=== PATIENT | female | born 1935 | race Caucasian/White ===

== ENCOUNTER 2017-06-21 15:08 | Emergency (ER) | END 2017-06-21 19:40 | disposition home or self-care (01) ==

== ENCOUNTER 2017-06-22 04:51 | Inpatient (IN) | END 2017-07-02 16:55 | disposition home health service (06) | DRG 270 ==

== ENCOUNTER 2017-08-18 12:21 | Inpatient (IN) | END 2017-08-20 20:30 | disposition home or self-care (01) | DRG 291 ==

== ENCOUNTER 2018-10-20 10:58 | Inpatient (IN) | payer MEDICARE, OTHER ==
[~2018-10-20] VITALS: Ht 157.5 cm; Wt 75.9 kg
[~2018-10-20 10:58] MED LIST: APIX2.5T PO; ATOR40TA68 PO; CARV6.2579 PO; CLOP75TA19 PO; FURO40TA4 PO; SACU1TAB7 PO
[2018-10-20] MEDS ORDERED: SOD CHLORIDE 0.9% 500 ML IV STA (11:10)
[2018-10-20] MEDS ORDERED: ONDANSETRON 4 MG INJ IV STA (11:10)
[2018-10-20] MEDS ORDERED: morphine 4 MG/ML VIAL IV STA (11:10)
[2018-10-20] MEDS ORDERED: ZOLP5TAB7 PO (12:13)
[2018-10-20] MEDS ORDERED: LORAZEPAM 2 MG INJ IV ONE ×2 (12:30→22:30)
[2018-10-20] MEDS ORDERED: IOHEXOL 100 ML ONE (12:56)
[2018-10-20] MEDS ORDERED: SOD CHLORIDE 0.9% 100 ML ONE (12:56)
--- NOTE | 2018-10-20 14:14 | ERD ---
ER Documentation Chief Complaint Chief Complaint shortness of breath and upper back pain started 45 minutes ago HPI During the patient's encounter translation services were utilized Language: Aremenian Source: Video 83-year-old female who is not a very good historian who presents to the emergency room with multiple complaints. The patient is possibly describing some shortness of breath and chest pain of unclear etiology and duration for approximately maybe 1 to 2 days. The patient also describes a right-sided lumbar thoracolumbar back pain that is moderate and throbbing and worse with rotational movement. She denies any significant pleuritic pain. No calf swelling. 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 ROS All systems reviewed and are negative except as per history of present illness. Medications Home Meds Reported Medications Zolpidem Tartrate* (Zolpidem Tartrate*) 5 Mg Tablet, 5 MG PO QHS PRN for NEEDED, #30 TAB 10/20/18 Clopidogrel Bisulfate* (Clopidogrel Bisulfate*) 75 Mg Tablet, 75 MG PO DAILY, #30 TAB 06/25/18 Furosemide* (Furosemide*) 40 Mg Tablet, 40 MG PO DAILY, TAB 06/25/18 Sacubitril/Valsartan (Entresto 49 mg-51 mg Tablet) 1 Each Tablet, 1 EACH PO BID, TAB 06/25/18 Atorvastatin* (Atorvastatin*) 40 Mg Tablet, 40 MG PO QHS, #30 TAB 06/25/18 Carvedilol* (Carvedilol*) 6.25 Mg Tablet, 6.25 MG PO BID, #60 TAB 06/25/18 Apixaban* (Eliquis*) 2.5 Mg Tablet, 2.5 MG PO BID, TAB 06/25/18 Allergies Allergies: Coded Allergies: No Known Allergy (Unverified , 10/20/18) PMhx/Soc History of Surgery: Yes (stent, RECENT STENT PLACED [id number] AGO) Anesthesia Reaction: No Hx Neurological Disorder: No (stroke 2017) Hx Respiratory Disorders: No Hx Cardiac Disorders: Yes (htn, cad, mi ,heart attack, POSSIBLE CHF) Hx Psychiatric Problems: No Hx Miscellaneous Medical Probl: No Hx Alcohol Use: No Hx Substance Use: No Hx Tobacco Use: No Smoking Status: Never smoker FmHx Family History: No diabetes Physical Exam Vitals Vital Signs Date Temp Pulse Resp B/P (MAP) Pulse Ox O2 O2 Flow FiO2 Time Delivery Rate 10/20/18 3.0 13:30 10/20/18 66 19 112/56 98 Nasal 13:00 (74) Cannula 10/20/18 Nasal 2 11:15 Cannula 10/20/18 97.7 74 21 144/71 98 11:10 (95) Physical Exam General: Uncomfortable Head: Normocephalic, atraumatic. Eyes: Pupils equally reactive, EOM intact ENT: Moist mucous membranes Neck: Supple, no lymphadenopathy Respiratory: Lungs clear bilaterally, no distress Cardiovascular: RRR, no murmurs, rubs, or gallops Abdominal: Soft, non-tender, non-distended, no peritoneal signs Back: Reproducible soft tissue tenderness along the paraspinal thoracolumbar back muscles without midline tenderness deformities or step-offs. : Deferred MSK: No edema, no unilateral swelling, 5/5 strength Neurologic: Alert and oriented, moving all extremities, normal speech, no focal weakness, no cerebellar signs Skin: No rash Psych: Normal mood Result Diagram: 10/20/18 1135 10/20/18 1135 Results 24 hrs Laboratory Tests Test 10/20/18 11:35 White Blood Count 7.2 10^3/ul Red Blood Count 3.83 10^6/ul Hemoglobin 10.9 g/dl Hematocrit 33.9 % Mean Corpuscular Volume 88.5 fl Mean Corpuscular Hemoglobin 28.5 pg Mean Corpuscular Hemoglobin Concent 32.2 g/dl Red Cell Distribution Width 14.7 % Platelet Count 308 10^3/UL Mean Platelet Volume 9.6 fl Immature Granulocytes % 0.100 % Neutrophils % 65.8 % Lymphocytes % 26.6 % Monocytes % 5.4 % Eosinophils % 1.5 % Basophils % 0.6 % Nucleated Red Blood Cells % 0.0 /100WBC Immature Granulocytes # 0.010 10^3/ul Neutrophils # 4.8 10^3/ul Lymphocytes # 1.9 10^3/ul Monocytes # 0.4 10^3/ul Eosinophils # 0.1 10^3/ul Basophils # 0.0 10^3/ul Nucleated Red Blood Cells # 0.0 10^3/ul Prothrombin Time 15.2 Sec Prothrombin Time Ratio 1.2 INR International Normalized Ratio 1.19 Activated Partial Thromboplast Time 28.3 Sec Sodium Level 143 mmol/L Potassium Level 3.9 mmol/L Chloride Level 111 mmol/L Carbon Dioxide Level 23 mmol/L Anion Gap 9 Blood Urea Nitrogen 17 mg/dl Creatinine 0.92 mg/dl Est Glomerular Filtrat Rate mL/min mL/min Glucose Level 120 mg/dl Calcium Level 9.4 mg/dl Troponin I < 0.012 ng/ml B-Type Natriuretic Peptide 2770 PG/ML Current Medications Medications Dose Sig/Christofer Start Time Status Last (Trade) Ordered Route PRN Stop Time Admin Dose Reason Admin Sodium 500 ml @ Q1H STAT 10/20/18 DC 10/20/18 Chloride 500 mls/hr IV 11:10 10/20/18 11:49 12:09 Morphine 4 mg ONCE STAT 10/20/18 DC 10/20/18 Sulfate IV 11:10 10/20/18 11:48 (morphine) 11:12 Ondansetron 4 mg ONCE STAT 10/20/18 DC 10/20/18 HCl (Zofran IV 11:10 10/20/18 11:48 Inj) 11:12 Lorazepam 0.5 mg ONCE ONCE 10/20/18 DC 10/20/18 (Ativan) IV 12:30 10/20/18 12:15 12:31 IV Flush 10 ml STK-MED 10/20/18 DC 10/20/18 (NS 10 ml) ONCE .ROUTE 12:55 10/20/18 13:40 12:56 Sodium 100 ml @ ud STK-MED 10/20/18 DC 10/20/18 Chloride ONCE .ROUTE 12:56 10/20/18 13:42 12:57 Iohexol 100 ml @ ud STK-MED 10/20/18 DC 10/20/18 ONCE .ROUTE 12:56 10/20/18 13:41 12:57 Procedures/MDM EKG, MONITORS, & DIAGNOSTIC IMAGING: EKG: I reviewed and interpreted a 12-lead EKG. Rhythm: Normal sinus rhythm ST Changes: No contiguous ST segment elevations T waves: No contiguous T wave inversions Impression: [No evidence of acute cardiac ischemia] Repeat EKG: EKG: I reviewed and interpreted a 12-lead EKG. Rhythm: Normal sinus rhythm ST Changes: No contiguous ST segment elevations T waves: No contiguous T wave inversions Impression: [No evidence of acute cardiac ischemia] Chest x-ray: I reviewed and interpreted a 1 view of the chest Mediastinum: No enlargement Cardiac silhouette: No cardiomegaly Airspace: Clear lung starr bilaterally without evidence of pneumothorax Bones: No evidence of fracture CTPE IMPRESSION: No evidence of central or segmental pulmonary emboli. Subsegmental branches not well visualized due to patient respiratory motion artifact. Discoid atelectasis in the lung bases. No acute appearing air space infiltrates. RPTAT: AADD PROCEDURES: [None] LAB INTERPRETATION: * The patient has a negative troponin, slightly elevated BNP MEDICAL DECISION MAKING: The patient's history, physical exam and clinical presentation is concerning for possible cardiogenic etiology and acute coronary syndrome. However the patient is also describing some shortness of breath, consider possible pulmonary embolism. The patient's back component seems to be muscular skeletal related given reproducible symptoms. No evidence of rash or shingles. No signs or symptoms concerning for dissection or aortic process. Based on the patient's clinical exam and history and risk factors, I have a much lower clinical concern for acute aortic dissection, pneumothorax, pneumonia, cardiac tamponade Shared Decision Making: We had a conversation regarding risk stratification, MACE rate, and the risks, benefits, alternatives of disposition planning options. ER COURSE: * Patient given pain control medication with improvement. She is resting comfortably and sleeping. Her troponin is negative. BNP is indeterminate. * Aspirin given. No indication of the patient requires diuresis. * Given the patient's cardiac history and report of chest pain the patient will benefit from hospitalization to rule out ACS. CONSULTATION: [None] DISPOSITION PLAN: Telemetry admission for management of chest pain to rule out acute coronary syndrome, serial enzymes, risk stratification and consideration of provocative testing CONSULTATION: Accepting care team and consultations: I discussed the current laboratory data, diagnostic imaging and emergency care provided. Admitting team: Dr. Murphy Admitting team indication: Insurance directed Departure Diagnosis: Primary Impression: Shortness of breath Additional Impressions: Back pain Back pain location: low back pain Chronicity: acute Back pain laterality: right Sciatica presence: without sciatica Qualified Codes: M54.5 - Low back pain Chest pain Chest pain type: unspecified Qualified Codes: R07.9 - Chest pain, unspecified Condition: Stable KEITH DEL CID MD Oct 20, 2018 14:13
[2018-10-20] MEDS ORDERED: ONDANSETRON 4 MG INJ IV PRN (14:30)
[2018-10-20] MEDS ORDERED: ACETAMINOPHEN 325 MG TAB PO PRN (14:30)
[2018-10-20] MEDS ORDERED: ASPIRIN 81 MG TAB PO ONE (14:30)
[2018-10-20] MEDS ORDERED: ZOLPIDEM 5 MG TAB PO PRN (15:00)
--- NOTE | 2018-10-20 15:23 | HP ---
Date/Time of Note Date/Time of Note DATE: 10/20/18 TIME: 15:19 Assessment/Plan VTE Prophylaxis Pharmacological prophylaxis: rivaroxaban Lines/Catheters IV Catheter Type (from [facility]): Saline Lock Assessment/Plan Hospital Course 83 yo female with A Fib, CHF, CAD who presents with episode of chest pain, nausea, palpitations, dizziness that started spontaneously this AM and self resolved - ACS a possibility, will trend troponins - Arrythmia also a possibility, monitor on telemetry - Reassuring she has normal CT-PE A Fib: - Continue eliquis CAD: - Continue plavix, atorvastatin CHF: - Continue entresto, Coreg Can likely dc tomorrow AM if feels well and troponins negative Result Diagram: 10/20/18 1135 10/20/18 1135 Results 24hrs Laboratory Tests Test 10/20/18 11:35 White Blood Count 7.2 # Red Blood Count 3.83 L Hemoglobin 10.9 L Hematocrit 33.9 L Mean Corpuscular Volume 88.5 Mean Corpuscular Hemoglobin 28.5 L Mean Corpuscular Hemoglobin Concent 32.2 Red Cell Distribution Width 14.7 H Platelet Count 308 Mean Platelet Volume 9.6 Immature Granulocytes % 0.100 Neutrophils % 65.8 Lymphocytes % 26.6 Monocytes % 5.4 Eosinophils % 1.5 Basophils % 0.6 Nucleated Red Blood Cells % 0.0 Immature Granulocytes # 0.010 Neutrophils # 4.8 Lymphocytes # 1.9 Monocytes # 0.4 Eosinophils # 0.1 Basophils # 0.0 Nucleated Red Blood Cells # 0.0 Prothrombin Time 15.2 H Prothrombin Time Ratio 1.2 INR International Normalized Ratio 1.19 Activated Partial Thromboplast Time 28.3 Sodium Level 143 Potassium Level 3.9 Chloride Level 111 H Carbon Dioxide Level 23 Anion Gap 9 Blood Urea Nitrogen 17 Creatinine 0.92 Est Glomerular Filtrat Rate mL/min Glucose Level 120 Calcium Level 9.4 Troponin I < 0.012 B-Type Natriuretic Peptide 2770 H HPI/ROS Admit Date/Time Admit Date/Time Hx of Present Illness 83 yo female with h/o systolic CHF, CAD, A FIb who presents with chest symptoms and nausea this AM Patient in usual state of heatlh until this morning. Woke up with nausea, palpitations then proceeded to chest pain and dyspnea. Vomited. Family called 911. Symptoms all resolved spontaneously. Currently feels well, back to normal. Only complaint is of chronic back pain. in ED had CT-A that was negative for PE ROS Constitutional: no complaints, improved Eyes: no complaints ENT: no complaints Respiratory: no complaints Cardiovascular: no complaints Gastrointestinal: no complaints Genitourinary: no complaints Musculoskeletal: no complaints Skin: no complaints Neurologic: no complaints Endocrine: no complaints Lymphatic: no complaints Psychological: no complaints, nl mood/affect Immunologic: no complaints PMH/Family/Social Past Medical History Medical History: congestive heart failure, coronary artery disease Medications Current Medications Ondansetron HCl (Zofran Inj) 4 mg ER BRIDGE PRN IV NAUSEA/VOMITING; Start 10/20/18 at 14:30; Stop 10/21/18 at 14:29 Acetaminophen (Tylenol Tab) 650 mg ER BRIDGE PRN PO .MILD PAIN 1-3 OR TEMP; Start 10/20/18 at 14:30; Stop 10/21/18 at 14:29 Apixaban (Eliquis) 2.5 mg BID PO ; Start 10/20/18 at 21:00 Atorvastatin Calcium (Lipitor) 40 mg QHS PO ; Start 10/20/18 at 21:00 Carvedilol (Coreg) 6.25 mg BID PO ; Start 10/20/18 at 21:00 Clopidogrel Bisulfate (plaVIX) 75 mg DAILY PO ; Start 10/21/18 at 09:00 Furosemide (Lasix) 40 mg DAILY PO ; Start 10/21/18 at 09:00 Zolpidem Tartrate (Ambien) 5 mg QHS PRN PO NEEDED; Start 10/20/18 at 15:00 Coded Allergies: No Known Allergy (Unverified , 10/20/18) Past Surgical History Past Surgical Hx: no surgical history, other Family History Significant Family History: no pertinent family hx Social History Alcohol Use: none Smoking Status: Never smoker Drug Use: none Exam/Review of Systems Vital Signs Vitals Vital Signs Date Temp Pulse Resp B/P (MAP) Pulse Ox O2 O2 Flow FiO2 Time Delivery Rate 10/20/18 78 14 120/66 97 Room Air 14:55 (84) Nasal Cannula 10/20/18 3.0 13:30 10/20/18 97.7 11:10 Exam Constitutional: alert, oriented, well developed Psych: no complaints, nl mood/affect Head: normocephalic, atraumatic Eyes: nl conjunctiva, EOMI, nl lids, nl sclera, PERRL ENMT: nl external ears & nose, nl lips & teeth, nl nasal mucosa & septum Neck: supple, non-tender Respiratory: clear to auscultation, normal air movement Cardiovascular: regular rate and rhythm, nl pulses Gastrointestinal: soft, nl liver, spleen, non-tender Musculoskeletal: nl extremities to inspection Extremities: normal pulses Neurological: DELI BAKERY CLERK II-XII intact, nl mental status, nl speech, nl strength Skin: nl turgor; No rash or lesions Lymph: nl lymph nodes MALIK WILSON MD Oct 20, 2018 15:23
[2018-10-20] MEDS ORDERED: SOD CHLORIDE 0.9% 500 ML IV ONE (18:30)
--- NOTE | 2018-10-20 19:24 | CONS ---
Assessment/Plan Assessment/Plan Hospital Course (Demo Recall) Lower back pain with h/o lumbar disc disease CAD s/p anterior STEMI 06/2017 and possible PCI 8 months ago: denies chest pain. EKG with old anterior DC, initial trop negative as expected Ischemic cardiomyopathy EF 40%: currently compensated but received 1 L IVF in ED so will monitor Paroxysmal afib on Eliquis -if trops remain normal, she can go home tomorrow from a cardiac perspective and f/u with Dr. Bearden -further workup and need for imaging, etc, per primary -continue Eliquis 2.5mg BID, plavix -coreg, entresto as BP tolerates -lasix 40mg PO daily Consultation Date/Type/Reason Admit Date/Time Date of Consultation: Oct 20, 2018 Type of Consult Cardiology Reason for Consultation chest pain Requesting Provider: MALIK WILSON MD Date/Time of Note DATE: 10/20/18 TIME: 19:15 Hx of Present Illness 83 yo F with a h/o CAD s/p anterior STEMI 06/2017 and possible PCI 8 months ago, ischemic cardiomyopathy EF 40%, paroxysmal afib on Eliquis, who presented with what was interpreted as chest/back pain. In discussion with the pt and family, it turns out she was having severe low back pain in the lumbar region. This is chronic and she has known disc herniation but it was very severe and the pain caused her to have dyspnea. No chest pain which is what she had during her DC. Her pain is better now and they considered going home but are agreeable to overnight observation. per hPI Past Medical History per hPI Home Meds Reported Medications Zolpidem Tartrate* (Zolpidem Tartrate*) 5 Mg Tablet, 5 MG PO QHS PRN for NEEDED, #30 TAB 10/20/18 Clopidogrel Bisulfate* (Clopidogrel Bisulfate*) 75 Mg Tablet, 75 MG PO DAILY, #30 TAB 06/25/18 Furosemide* (Furosemide*) 40 Mg Tablet, 40 MG PO DAILY, TAB 06/25/18 Sacubitril/Valsartan (Entresto 49 mg-51 mg Tablet) 1 Each Tablet, 1 EACH PO BID, TAB 06/25/18 Atorvastatin* (Atorvastatin*) 40 Mg Tablet, 40 MG PO QHS, #30 TAB 06/25/18 Carvedilol* (Carvedilol*) 6.25 Mg Tablet, 6.25 MG PO BID, #60 TAB 06/25/18 Apixaban* (Eliquis*) 2.5 Mg Tablet, 2.5 MG PO BID, TAB 06/25/18 Medications Current Medications Ondansetron HCl (Zofran Inj) 4 mg ER BRIDGE PRN IV NAUSEA/VOMITING; Start 10/20/18 at 14:30; Stop 10/21/18 at 14:29 Acetaminophen (Tylenol Tab) 650 mg ER BRIDGE PRN PO .MILD PAIN 1-3 OR TEMP; Start 10/20/18 at 14:30; Stop 10/21/18 at 14:29 Apixaban (Eliquis) 2.5 mg BID PO ; Start 10/20/18 at 21:00 Atorvastatin Calcium (Lipitor) 40 mg QHS PO ; Start 10/20/18 at 21:00 Carvedilol (Coreg) 6.25 mg BID PO ; Start 10/20/18 at 21:00 Clopidogrel Bisulfate (plaVIX) 75 mg DAILY PO ; Start 10/21/18 at 09:00 Furosemide (Lasix) 40 mg DAILY PO ; Start 10/21/18 at 09:00 Zolpidem Tartrate (Ambien) 5 mg QHS PRN PO NEEDED; Start 10/20/18 at 15:00 Sodium Chloride 500 ml @ 500 mls/hr Q1H ONCE IV Last administered on 10/20/18at 18:22; Admin Dose 500 MLS/HR; Start 10/20/18 at 18:30; Stop 10/20/18 at 19:29 Allergies: Coded Allergies: No Known Allergy (Unverified , 10/20/18) Past Surgical History Past Surgical Hx: no surgical history, other Social History Alcohol Use: none Smoking Status: Never smoker Drug Use: none Exam/Review of Systems Vital Signs Vitals Vital Signs Date Temp Pulse Resp B/P (MAP) Pulse Ox O2 O2 Flow FiO2 Time Delivery Rate 10/20/18 97.9 71 16 138/64 100 Nasal 3.0 18:51 (88) Cannula Exam Constitutional: alert, oriented Psych: no complaints, nl mood/affect Head: normocephalic, atraumatic Neck: jvd (8-9cm) Respiratory: diminished breath sounds; No clear to auscultation Cardiovascular: regular rate and rhythm; No edema Gastrointestinal: soft, non-tender; No distended Musculoskeletal: nl extremities to inspection Labs Result Diagram: 10/20/18 1135 10/20/18 1135 Results 24hrs Laboratory Tests Test 10/20/18 11:35 White Blood Count 7.2 # Red Blood Count 3.83 L Hemoglobin 10.9 L Hematocrit 33.9 L Mean Corpuscular Volume 88.5 Mean Corpuscular Hemoglobin 28.5 L Mean Corpuscular Hemoglobin Concent 32.2 Red Cell Distribution Width 14.7 H Platelet Count 308 Mean Platelet Volume 9.6 Immature Granulocytes % 0.100 Neutrophils % 65.8 Lymphocytes % 26.6 Monocytes % 5.4 Eosinophils % 1.5 Basophils % 0.6 Nucleated Red Blood Cells % 0.0 Immature Granulocytes # 0.010 Neutrophils # 4.8 Lymphocytes # 1.9 Monocytes # 0.4 Eosinophils # 0.1 Basophils # 0.0 Nucleated Red Blood Cells # 0.0 Prothrombin Time 15.2 H Prothrombin Time Ratio 1.2 INR International Normalized Ratio 1.19 Activated Partial Thromboplast Time 28.3 Sodium Level 143 Potassium Level 3.9 Chloride Level 111 H Carbon Dioxide Level 23 Anion Gap 9 Blood Urea Nitrogen 17 Creatinine 0.92 Est Glomerular Filtrat Rate mL/min Glucose Level 120 Calcium Level 9.4 Troponin I < 0.012 B-Type Natriuretic Peptide 2770 H Medications Medications Current Medications Ondansetron HCl (Zofran Inj) 4 mg ER BRIDGE PRN IV NAUSEA/VOMITING; Start 10/20/18 at 14:30; Stop 10/21/18 at 14:29 Acetaminophen (Tylenol Tab) 650 mg ER BRIDGE PRN PO .MILD PAIN 1-3 OR TEMP; Start 10/20/18 at 14:30; Stop 10/21/18 at 14:29 Apixaban (Eliquis) 2.5 mg BID PO ; Start 10/20/18 at 21:00 Atorvastatin Calcium (Lipitor) 40 mg QHS PO ; Start 10/20/18 at 21:00 Carvedilol (Coreg) 6.25 mg BID PO ; Start 10/20/18 at 21:00 Clopidogrel Bisulfate (plaVIX) 75 mg DAILY PO ; Start 10/21/18 at 09:00 Furosemide (Lasix) 40 mg DAILY PO ; Start 10/21/18 at 09:00 Zolpidem Tartrate (Ambien) 5 mg QHS PRN PO NEEDED; Start 10/20/18 at 15:00 Sodium Chloride 500 ml @ 500 mls/hr Q1H ONCE IV Last administered on 10/20/18at 18:22; Admin Dose 500 MLS/HR; Start 10/20/18 at 18:30; Stop 10/20/18 at 19:29 TYRONE ROSARIO Oct 20, 2018 19:24
[2018-10-20 22:17] VITALS: PULSE 75
[2018-10-20 22:22] VITALS: BP 127/61; PULSE 73
[2018-10-20 22:30] VITALS: Ht 157.5 cm; Wt 75.9 kg
[2018-10-20] MEDS: APIXABAN 5 MG TABLET PO SCH (22:43)
[2018-10-20] MEDS: ATORVASTATIN 40 MG TAB PO SCH (22:43)
[2018-10-21] VITALS (9 sets, daily range): BP systolic 110–144; BP diastolic 51–75; PULSE 63–93; RESP 18–19
[2018-10-21] MEDS: APIXABAN 5 MG TABLET PO SCH ×2 (08:59→20:20)
[2018-10-21] MEDS: CLOPIDOGREL 75 MG TAB PO SCH (08:59)
[2018-10-21] MEDS: FUROSEMIDE 40 MG TAB PO SCH (08:59)
--- NOTE | 2018-10-21 10:40 | PDOCDIS ---
Discharge Instructions CONDITION [id number] Patient Condition: [id number] Stable HOME CARE INSTRUCTIONS: [id number] Diet Instructions: [id number] Low Fat /Cholesterol FOLLOW UP/APPOINTMENTS Follow-up Plan Dr. Bearden. OTHER ORDERS: Other Orders: 1. Resume home medications. 2. Follow a low-cholesterol diet. 3. Follow-up with your pharmacy general manager as outpatient. 4. Resume activities as tolerated. 5. Please go to the nearest emergency room if you have significant chest pain, shortness of breath, or any other unusual signs/symptoms. MIKE COUCH NP Oct 21, 2018 10:40
--- NOTE | 2018-10-21 11:31 | PN ---
Date/Time of Note Date/Time of Note DATE: 10/21/18 TIME: 11:30 Assessment/Plan VTE Prophylaxis Pharmacological prophylaxis: apixaban Lines/Catheters IV [facility]ter Type (from [facility]): Saline Lock Assessment/Plan Hospital Course SUBJECTIVE: Complains of left gluteal area pain and dyspnea. OBJECTIVE: Physical Exam General: Adequately build 83 year-old female lying in bed in no apparent distress. HEENT: Normocephalic, atraumatic. Eyes: Anicteric sclerae, conjunctivae clear. ENT: Nasal septum midline, oral mucosa moist. Neck supple. Respiratory: Bilaterally diminished breath sounds. No use of accessory muscles of respiration. No adventitious breath sounds. Cardiovascular: S1, S2 heard. Regular rate and rhythm. Abdomen: Soft, nontender, and nondistended. Bowel sounds positive in all 4 quadrants. Genitourinary: Deferred. Extremities: No cyanosis, no clubbing, no edema. Peripheral pulses palpable. Neurologic: Cranial nerves II through XII grossly intact. The patient is awake, alert, and oriented. Skin: Normal skin turgor. No skin rashes. Labs & Vitals per chart ASSESSMENT & PLAN 83-year-old female with comorbidities including atrial fibrillation, CHF, CAD, dyslipidemia, and underlying anxiety disorder who came to the emergency room with chief complaint of lower back pain, nausea, palpitations, and dizziness, who was admitted to inpatient setting for further treatment and evaluation. 1. Lower back pain. Patient's family verbalized history of lumbar disc disease. Obtain lumbar spine imaging. Continue pain control. 2. Atrial fibrillation. Currently in sinus rhythm. Continue Coreg. Continue Eliquis. 3. History of CAD. Continue statins, Eliquis, and Plavix. 4. Ischemic cardiomyopathy. Ejection fraction 40%. Continue beta-blockers and Entresto. Continue Lasix p.o. daily. 5. Anxiety disorder. Continue PRN anxiolytics. 6. Fluids, electrolytes, and nutrition. Low-cholesterol diet. 7. DVT prophylaxis. Factor Xa inhibitors. 8. Plan. Continue current management. Patient continues to complain of lower back pain and subjective dyspnea. Await clinical improvement before discharging the patient home. The patient was seen in collaboration with Dr. Hudson. Result Diagram: 10/20/18 1135 10/20/18 1135 Results 24hrs Laboratory Tests Test 10/20/18 11:35 10/20/18 19:14 10/21/18 00:22 White Blood Count 7.2 # Red Blood Count 3.83 L Hemoglobin 10.9 L Hematocrit 33.9 L Mean Corpuscular Volume 88.5 Mean Corpuscular Hemoglobin 28.5 L Mean Corpuscular Hemoglobin Concent 32.2 Red Cell Distribution Width 14.7 H Platelet Count 308 Mean Platelet Volume 9.6 Immature Granulocytes % 0.100 Neutrophils % 65.8 Lymphocytes % 26.6 Monocytes % 5.4 Eosinophils % 1.5 Basophils % 0.6 Nucleated Red Blood Cells % 0.0 Immature Granulocytes # 0.010 Neutrophils # 4.8 Lymphocytes # 1.9 Monocytes # 0.4 Eosinophils # 0.1 Basophils # 0.0 Nucleated Red Blood Cells # 0.0 Prothrombin Time 15.2 H Prothrombin Time Ratio 1.2 INR International Normalized Ratio 1.19 Activated Partial Thromboplast Time 28.3 Sodium Level 143 Potassium Level 3.9 Chloride Level 111 H Carbon Dioxide Level 23 Anion Gap 9 Blood Urea Nitrogen 17 Creatinine 0.92 Est Glomerular Filtrat Rate mL/min Glucose Level 120 Calcium Level 9.4 Troponin I < 0.012 < 0.012 < 0.012 B-Type Natriuretic Peptide 2770 H Creatine Kinase 37 43 Creatine Kinase Index 1.6 1.3 Creatinine Kinase MB (Mass) 0.59 0.58 Exam/Review of Systems Exam Vitals Vital Signs Date Temp Pulse Resp B/P (MAP) Pulse Ox O2 O2 Flow FiO2 Time Delivery Rate 10/21/18 77 08:14 10/21/18 99.0 19 144/75 96 04:00 (98) 10/20/18 Nasal 2.0 22:30 Cannula Results Results 24hrs Laboratory Tests Test 10/20/18 11:35 10/20/18 19:14 10/21/18 00:22 White Blood Count 7.2 # Red Blood Count 3.83 L Hemoglobin 10.9 L Hematocrit 33.9 L Mean Corpuscular Volume 88.5 Mean Corpuscular Hemoglobin 28.5 L Mean Corpuscular Hemoglobin Concent 32.2 Red Cell Distribution Width 14.7 H Platelet Count 308 Mean Platelet Volume 9.6 Immature Granulocytes % 0.100 Neutrophils % 65.8 Lymphocytes % 26.6 Monocytes % 5.4 Eosinophils % 1.5 Basophils % 0.6 Nucleated Red Blood Cells % 0.0 Immature Granulocytes # 0.010 Neutrophils # 4.8 Lymphocytes # 1.9 Monocytes # 0.4 Eosinophils # 0.1 Basophils # 0.0 Nucleated Red Blood Cells # 0.0 Prothrombin Time 15.2 H Prothrombin Time Ratio 1.2 INR International Normalized Ratio 1.19 Activated Partial Thromboplast Time 28.3 Sodium Level 143 Potassium Level 3.9 Chloride Level 111 H Carbon Dioxide Level 23 Anion Gap 9 Blood Urea Nitrogen 17 Creatinine 0.92 Est Glomerular Filtrat Rate mL/min Glucose Level 120 Calcium Level 9.4 Troponin I < 0.012 < 0.012 < 0.012 B-Type Natriuretic Peptide 2770 H Creatine Kinase 37 43 Creatine Kinase Index 1.6 1.3 Creatinine Kinase MB (Mass) 0.59 0.58 Medications Medication Current Medications Ondansetron HCl (Zofran Inj) 4 mg ER BRIDGE PRN IV NAUSEA/VOMITING; Start 10/20/18 at 14:30; Stop 10/21/18 at 14:29 Acetaminophen (Tylenol Tab) 650 mg ER BRIDGE PRN PO .MILD PAIN 1-3 OR TEMP Last administered on 10/21/18at 03:46; Admin Dose 650 MG; Start 10/20/18 at 14:30; Stop 10/21/18 at 14:29 Apixaban (Eliquis) 2.5 mg BID PO Last administered on 10/21/18 08:59; Admin Dose 2.5 MG; Start 10/20/18 at 21:00 Atorvastatin Calcium (Lipitor) 40 mg QHS PO Last administered on 10/20/18 22:43; Admin Dose 40 MG; Start 10/20/18 at 21:00 Carvedilol (Coreg) 6.25 mg BID PO Last administered on 10/21/18 08:59; Admin Dose 6.25 MG; Start 10/20/18 at 21:00 Clopidogrel Bisulfate (plaVIX) 75 mg DAILY PO Last administered on 10/21/18 08:59; Admin Dose 75 MG; Start 10/21/18 at 09:00 Furosemide (Lasix) 40 mg DAILY PO Last administered on 10/21/18 08:59; Admin Dose 40 MG; Start 10/21/18 at 09:00 Zolpidem Tartrate (Ambien) 5 mg QHS PRN PO NEEDED Last administered on 10/20/18 22:54; Admin Dose 5 MG; Start 10/20/18 at 15:00 Lorazepam (Ativan) 1 mg Q8H PRN IV Anxiety; Start 10/21/18 at 11:30 MIKE COUCH NP Oct 21, 2018 11:31
[2018-10-21] MEDS: LORAZEPAM 2 MG INJ IV PRN ×2 (12:47→22:09)
--- NOTE | 2018-10-21 13:44 | CONS ---
Assessment/Plan Assessment/Plan Hospital Course (Demo Recall) Lower back pain with h/o lumbar disc disease CAD s/p anterior STEMI 06/2017 and possible PCI 8 months ago: denies chest pain. 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 She was given ativan and relaxed. No current complaints. Family is at bedside. Exam/Review of Systems Vital Signs Vitals Vital Signs Date Temp Pulse Resp B/P (MAP) Pulse Ox O2 O2 Flow FiO2 Time Delivery Rate 10/21/18 91 12:18 10/21/18 97.5 19 136/67 98 Room Air 11:58 (90) 10/20/18 2.0 22:30 Exam Constitutional: alert, oriented Psych: no complaints, nl mood/affect Head: normocephalic, atraumatic Neck: No jvd Respiratory: clear to auscultation; No crackles/rales Cardiovascular: regular rate and rhythm; No edema Gastrointestinal: soft, non-tender; No distended Neurological: nl mental status, nl speech Labs Result Diagram: 10/20/18 1135 10/20/18 1135 Results 24hrs Laboratory Tests Test 10/20/18 19:14 10/21/18 00:22 Creatine Kinase 37 43 Creatine Kinase Index 1.6 1.3 Creatinine Kinase MB (Mass) 0.59 0.58 Troponin I < 0.012 < 0.012 Medications Medications Current Medications Ondansetron HCl (Zofran Inj) 4 mg ER BRIDGE PRN IV NAUSEA/VOMITING; Start 10/20/18 at 14:30; Stop 10/21/18 at 14:29 Acetaminophen (Tylenol Tab) 650 mg ER BRIDGE PRN PO .MILD PAIN 1-3 OR TEMP Last administered on 10/21/18 03:46; Admin Dose 650 MG; Start 10/20/18 at 14:30; Stop 10/21/18 at 14:29 Apixaban (Eliquis) 2.5 mg BID PO Last administered on 10/21/18 08:59; Admin Dose 2.5 MG; Start 10/20/18 at 21:00 Atorvastatin Calcium (Lipitor) 40 mg QHS PO Last administered on 10/20/18 22:43; Admin Dose 40 MG; Start 10/20/18 at 21:00 Carvedilol (Coreg) 6.25 mg BID PO Last administered on 10/21/18 08:59; Admin Dose 6.25 MG; Start 10/20/18 at 21:00 Clopidogrel Bisulfate (plaVIX) 75 mg DAILY PO Last administered on 10/21/18 08:59; Admin Dose 75 MG; Start 10/21/18 at 09:00 Furosemide (Lasix) 40 mg DAILY PO Last administered on 10/21/18 08:59; Admin Dose 40 MG; Start 10/21/18 at 09:00 Zolpidem Tartrate (Ambien) 5 mg QHS PRN PO NEEDED Last administered on 10/20/18 22:54; Admin Dose 5 MG; Start 10/20/18 at 15:00 Lorazepam (Ativan) 1 mg Q8H PRN IV Anxiety Last administered on 10/21/18 12:47; Admin Dose 1 MG; Start 10/21/18 at 11:30 TYRONE ROSARIO Oct 21, 2018 13:44
--- NOTE | 2018-10-21 16:59 | QN ---
Documentation Comment As Physician Advisor I have reviewed the chart and have determined that as of today, this patient continues to receive medically necessary care required for the diagnosis and treatment of illness or injury. There has been no unreasonable delay in the rendering of medically necessary services, and this medically necessary care requires a length of stay expected to be greater than two midnights. Additional information gained during the stay now suggests this patient should have been classified as an inpatient at the time of admission, and I will change the status to inpatient to reflect that medical judgment. Besides the notes from the medical providers, the following information was used in this determination: Patient was initially worked up for possible ACS, but has ongoing separate concerns making discharge unsafe: Back pain requiring IV medications Ongoing dyspnea Comorbidities including CAD and ischemic cardiomyopathy with EF 40%, a-fib, age > 80 ys, BMI >30. Please call me at [phone] with questions. JORGE LAMA MD Oct 21, 2018 16:59
[2018-10-21] MEDS: HYDROCODONE/APAP (5/325) TAB PO PRN (20:19)
[2018-10-21] MEDS: ATORVASTATIN 40 MG TAB PO SCH (20:22)
[2018-10-21] MEDS ORDERED: LORAZEPAM 1 MG TAB PO SCH (22:00)
[2018-10-22] VITALS (11 sets, daily range): BP systolic 92–153; BP diastolic 50–78; PULSE 63–96; RESP 18–20
[2018-10-22] MEDS: HYDROCODONE/APAP (5/325) TAB PO PRN ×3 (05:51→17:49)
[2018-10-22] MEDS: CLOPIDOGREL 75 MG TAB PO SCH (08:41)
[2018-10-22] MEDS: APIXABAN 5 MG TABLET PO SCH ×2 (08:42→21:02)
[2018-10-22] MEDS: FUROSEMIDE 40 MG TAB PO SCH (08:42)
--- NOTE | 2018-10-22 10:04 | PN ---
Date/Time of Note Date/Time of Note DATE: 10/22/18 TIME: 10:01 Assessment/Plan VTE Prophylaxis Risk score (from Nsg)>0 risk: 5 SCD applied (from Nsg): Yes Pharmacological prophylaxis: apixaban Lines/Catheters IV Catheter Type (from Nrsg): Saline Lock Assessment/Plan Hospital Course SUBJECTIVE: Complains of back pain. OBJECTIVE: Physical Exam General: Adequately build 83 year-old female lying in bed in no apparent distress. HEENT: Normocephalic, atraumatic. Eyes: Anicteric sclerae, conjunctivae clear. ENT: Nasal septum midline, oral mucosa moist. Neck supple. Respiratory: Bilaterally diminished breath sounds. No use of accessory muscles of respiration. No adventitious breath sounds. Cardiovascular: S1, S2 heard. Regular rate and rhythm. Abdomen: Soft, nontender, and nondistended. Bowel sounds positive in all 4 quadrants. Genitourinary: Deferred. Extremities: No cyanosis, no clubbing, no edema. Peripheral pulses palpable. Neurologic: Cranial nerves II through XII grossly intact. The patient is awake, alert, and oriented. Skin: Normal skin turgor. No skin rashes. Labs & Vitals per chart ASSESSMENT & PLAN 83-year-old female with comorbidities including atrial fibrillation, CHF, CAD, dyslipidemia, and underlying anxiety disorder who came to the emergency room with chief complaint of lower back pain, nausea, palpitations, and dizziness, who was admitted to inpatient setting for further treatment and evaluation. 1. Lower back pain. Patient's family verbalized history of lumbar disc disease. Lumbar spine imaging showing chronic changes. Continue pain control. PT evaluation. 2. Atrial fibrillation. Currently in sinus rhythm. Continue Coreg. Continue Eliquis. 3. History of CAD. Continue statins, Eliquis, and Plavix. 4. Ischemic cardiomyopathy. Ejection fraction 40%. Continue beta-blockers and Entresto. Continue Lasix p.o. daily. 5. Anxiety disorder. Continue PRN anxiolytics. 6. Prediabetes. Hemoglobin A1c of 5.9.6. Monitor glycemic trends. 7. Fluids, electrolytes, and nutrition. Low-cholesterol diet. 8. DVT prophylaxis. Factor Xa inhibitors. 9. Plan. Continue current management. Patient continues to complain of lower back pain. Physical therapy evaluation ordered. Family requesting placement for rehabilitation upon discharge. Move the patient to medical surgical floor. The patient was seen in collaboration with Dr. Hudson. Result Diagram: 10/22/18 0654 10/22/18 0654 Results 24hrs Laboratory Tests Test 10/22/18 06:54 White Blood Count 6.6 Red Blood Count 3.60 L Hemoglobin 10.3 L Hematocrit 32.0 L Mean Corpuscular Volume 88.9 Mean Corpuscular Hemoglobin 28.6 L Mean Corpuscular Hemoglobin Concent 32.2 Red Cell Distribution Width 14.6 H Platelet Count 283 Mean Platelet Volume 9.3 Immature Granulocytes % 0.200 Neutrophils % 55.2 Lymphocytes % 34.5 Monocytes % 7.9 Eosinophils % 1.4 Basophils % 0.8 Nucleated Red Blood Cells % 0.0 Immature Granulocytes # 0.010 Neutrophils # 3.7 Lymphocytes # 2.3 Monocytes # 0.5 Eosinophils # 0.1 Basophils # 0.1 Nucleated Red Blood Cells # 0.0 Sodium Level 140 Potassium Level 3.6 Chloride Level 107 Carbon Dioxide Level 27 Anion Gap 6 Blood Urea Nitrogen 15 Creatinine 1.02 H Est Glomerular Filtrat Rate mL/min Glucose Level 94 Hemoglobin A1c 5.9 Calcium Level 9.1 Phosphorus Level 4.3 Magnesium Level 2.0 Total Bilirubin 0.8 Direct Bilirubin 0.00 Indirect Bilirubin 0.8 Aspartate Amino Transf (AST/SGOT) 25 Alanine Aminotransferase (ALT/SGPT) 28 Alkaline Phosphatase 62 Total Protein 6.5 Albumin 3.6 Globulin 2.90 Albumin/Globulin Ratio 1.24 Triglycerides Level 57 Cholesterol Level 183 LDL Cholesterol, Calculated 125 HDL Cholesterol 47 Cholesterol/HDL Ratio 3.8 Exam/Review of Systems Exam Vitals Vital Signs Date Temp Pulse Resp B/P (MAP) Pulse Ox O2 O2 Flow FiO2 Time Delivery Rate 10/22/18 63 08:00 10/22/18 98.2 20 103/57 97 Room Air 07:19 (72) 10/21/18 2.0 20:15 Intake and Output 10/21/18 10/21/18 10/22/18 1515:00 23:00 07:00 IntakeIntake Total 440 ml 560 ml BalanceBalance 440 ml 560 ml Results Results 24hrs Laboratory Tests Test 10/22/18 06:54 White Blood Count 6.6 Red Blood Count 3.60 L Hemoglobin 10.3 L Hematocrit 32.0 L Mean Corpuscular Volume 88.9 Mean Corpuscular Hemoglobin 28.6 L Mean Corpuscular Hemoglobin Concent 32.2 Red Cell Distribution Width 14.6 H Platelet Count 283 Mean Platelet Volume 9.3 Immature Granulocytes % 0.200 Neutrophils % 55.2 Lymphocytes % 34.5 Monocytes % 7.9 Eosinophils % 1.4 Basophils % 0.8 Nucleated Red Blood Cells % 0.0 Immature Granulocytes # 0.010 Neutrophils # 3.7 Lymphocytes # 2.3 Monocytes # 0.5 Eosinophils # 0.1 Basophils # 0.1 Nucleated Red Blood Cells # 0.0 Sodium Level 140 Potassium Level 3.6 Chloride Level 107 Carbon Dioxide Level 27 Anion Gap 6 Blood Urea Nitrogen 15 Creatinine 1.02 H Est Glomerular Filtrat Rate mL/min Glucose Level 94 Hemoglobin A1c 5.9 Calcium Level 9.1 Phosphorus Level 4.3 Magnesium Level 2.0 Total Bilirubin 0.8 Direct Bilirubin 0.00 Indirect Bilirubin 0.8 Aspartate Amino Transf (AST/SGOT) 25 Alanine Aminotransferase (ALT/SGPT) 28 Alkaline Phosphatase 62 Total Protein 6.5 Albumin 3.6 Globulin 2.90 Albumin/Globulin Ratio 1.24 Triglycerides Level 57 Cholesterol Level 183 LDL Cholesterol, Calculated 125 HDL Cholesterol 47 Cholesterol/HDL Ratio 3.8 Medications Medication Current Medications Apixaban (Eliquis) 2.5 mg BID PO Last administered on 10/22/18 08:42; Admin Dose 2.5 MG; Start 10/20/18 at 21:00 Atorvastatin Calcium (Lipitor) 40 mg QHS PO Last administered on 10/21/18 20:22; Admin Dose 40 MG; Start 10/20/18 at 21:00 Carvedilol (Coreg) 6.25 mg BID PO Last administered on 10/22/18 08:42; Admin Dose 6.25 MG; Start 10/20/18 at 21:00 Clopidogrel Bisulfate (plaVIX) 75 mg DAILY PO Last administered on 10/22/18 08:41; Admin Dose 75 MG; Start 10/21/18 at 09:00 Furosemide (Lasix) 40 mg DAILY PO Last administered on 10/22/18 08:42; Admin Dose 40 MG; Start 10/21/18 at 09:00 Zolpidem Tartrate (Ambien) 5 mg QHS PRN PO NEEDED Last administered on 10/20/18 22:54; Admin Dose 5 MG; Start 10/20/18 at 15:00 Lorazepam (Ativan) 1 mg Q8H PRN IV Anxiety Last administered on 10/21/18at 22:09; Admin Dose 1 MG; Start 10/21/18 at 11:30 Acetaminophen/ Hydrocodone Bitart ([place] (5/325)) 1 tab Q6H PRN PO MODERATE PAIN LEVEL 4-6 Last administered on 10/22/18at 05:51; Admin Dose 1 TAB; Start 10/21/18 at 20:00 Lorazepam (Ativan) 1 mg Q8H PRN PO ANXIETY; Start 10/21/18 at 20:00 MIKE COUHC NP Oct 22, 2018 10:04
[2018-10-22] MEDS: LORAZEPAM 1 MG TAB PO PRN ×2 (12:02→21:02)
[2018-10-22] MEDS: ATORVASTATIN 40 MG TAB PO SCH (21:02)
[2018-10-23 01:29] VITALS: BP 123/69; PULSE 84; RESP 18
[2018-10-23] MEDS: HYDROCODONE/APAP (5/325) TAB PO PRN ×3 (03:17→17:14)
[2018-10-23 07:41] VITALS: BP 108/59; PULSE 81; RESP 18
[2018-10-23] MEDS: APIXABAN 5 MG TABLET PO SCH ×2 (08:31→20:25)
[2018-10-23] MEDS: FUROSEMIDE 40 MG TAB PO SCH (08:35)
[2018-10-23] MEDS: CLOPIDOGREL 75 MG TAB PO SCH (08:35)
[2018-10-23 14:29] VITALS: BP 76/40; PULSE 88; RESP 18
[2018-10-23 14:45] VITALS: BP 109/55; PULSE 89
[2018-10-23 17:11] VITALS: BP 119/57; RESP 18
--- NOTE | 2018-10-23 18:09 | PN ---
Date/Time of Note Date/Time of Note DATE: 10/23/18 TIME: 18:07 Assessment/Plan VTE Prophylaxis Risk score (from Ns)>0 risk: 4 SCD applied (from Ns): Yes SCD contraindicated: low risk/ambulating Pharmacological prophylaxis: LMWH Lines/Catheters IV Catheter [facility] (from [facility]): Saline Lock Assessment/Plan Hospital Course A/P 1. Atypical chest pain ruled out for ACS. Stable observe 2. Spinal stenosis, try conservative therapy. Discharge to ARU. 3. Chronic CAD/ PCI? Continue medical management 4. Anemia, stable 5. CHF? EF of 40 ischemic cardiopathy? 6. CKD stable 7. Dyslipidemia 8. Anxiety disorder? 9. DJD 10. Chronic A. fib continue rate control anticoagulation if stable 11. Old [place] status S: No events Objective: Vital signs stable PE No pallor Regular Clear Benign No edema Result Diagram: 10/23/18 0836 10/23/18 0836 Results 24hrs Laboratory Tests Test 10/23/18 08:36 White Blood Count 7.3 Red Blood Count 3.74 L Hemoglobin 10.8 L Hematocrit 33.3 L Mean Corpuscular Volume 89.0 Mean Corpuscular Hemoglobin 28.9 L Mean Corpuscular Hemoglobin Concent 32.4 Red Cell Distribution Width 14.7 H Platelet Count 305 Mean Platelet Volume 9.5 Immature Granulocytes % 0.300 Neutrophils % 57.3 Lymphocytes % 31.4 Monocytes % 8.9 Eosinophils % 1.4 Basophils % 0.7 Nucleated Red Blood Cells % 0.0 Immature Granulocytes # 0.020 Neutrophils # 4.2 Lymphocytes # 2.3 Monocytes # 0.7 Eosinophils # 0.1 Basophils # 0.1 Nucleated Red Blood Cells # 0.0 Sodium Level 139 Potassium Level 3.6 Chloride Level 105 Carbon Dioxide Level 25 Anion Gap 9 Blood Urea Nitrogen 21 H Creatinine 1.44 H Est Glomerular Filtrat Rate mL/min Glucose Level 94 Calcium Level 8.9 Phosphorus Level 5.0 H Magnesium Level 2.1 Exam/Review of Systems Exam Vitals Vital Signs Date Temp Pulse Resp B/P (MAP) Pulse Ox O2 O2 Flow FiO2 Time Delivery Rate 10/23/18 18 119/57 98 17:11 (77) 10/23/18 89 14:45 10/23/18 97.2 14:29 10/22/18 Nasal 2.0 20:00 Cannula Intake and Output 10/22/18 10/22/18 10/23/18 1515:00 23:00 07:00 IntakeIntake Total 200 ml 200 ml 300 ml BalanceBalance 200 ml 200 ml 300 ml Results Results 24hrs Laboratory Tests Test 10/23/18 08:36 White Blood Count 7.3 Red Blood Count 3.74 L Hemoglobin 10.8 L Hematocrit 33.3 L Mean Corpuscular Volume 89.0 Mean Corpuscular Hemoglobin 28.9 L Mean Corpuscular Hemoglobin Concent 32.4 Red Cell Distribution Width 14.7 H Platelet Count 305 Mean Platelet Volume 9.5 Immature Granulocytes % 0.300 Neutrophils % 57.3 Lymphocytes % 31.4 Monocytes % 8.9 Eosinophils % 1.4 Basophils % 0.7 Nucleated Red Blood Cells % 0.0 Immature Granulocytes # 0.020 Neutrophils # 4.2 Lymphocytes # 2.3 Monocytes # 0.7 Eosinophils # 0.1 Basophils # 0.1 Nucleated Red Blood Cells # 0.0 Sodium Level 139 Potassium Level 3.6 Chloride Level 105 Carbon Dioxide Level 25 Anion Gap 9 Blood Urea Nitrogen 21 H Creatinine 1.44 H Est Glomerular Filtrat Rate mL/min Glucose Level 94 Calcium Level 8.9 Phosphorus Level 5.0 H Magnesium Level 2.1 Medications Medication Current Medications Apixaban (Eliquis) 2.5 mg BID PO Last administered on 10/23/18 08:31; Admin Dose 2.5 MG; Start 10/20/18 at 21:00 Atorvastatin Calcium (Lipitor) 40 mg QHS PO Last administered on 10/22/18 21:02; Admin Dose 40 MG; Start 10/20/18 at 21:00 Carvedilol (Coreg) 6.25 mg BID PO Last administered on 10/22/18 08:42; Admin Dose 6.25 MG; Start 10/20/18 at 21:00 Clopidogrel Bisulfate (plaVIX) 75 mg DAILY PO Last administered on 10/23/18 08:35; Admin Dose 75 MG; Start 10/21/18 at 09:00 Furosemide (Lasix) 40 mg DAILY PO Last administered on 10/23/18 08:35; Admin Dose 40 MG; Start 10/21/18 at 09:00 Zolpidem Tartrate (Ambien) 5 mg QHS PRN PO NEEDED Last administered on 10/20/18 22:54; Admin Dose 5 MG; Start 10/20/18 at 15:00 Lorazepam (Ativan) 1 mg Q8H PRN IV Anxiety Last administered on 10/21/18 22:09; Admin Dose 1 MG; Start 10/21/18 at 11:30 Acetaminophen/ Hydrocodone Bitart ([place] (5/325)) 1 tab Q6H PRN PO MODERATE PAIN LEVEL 4-6 Last administered on 10/23/18 17:14; Admin Dose 1 TAB; Start 10/21/18 at 20:00 Lorazepam (Ativan) 1 mg Q8H PRN PO ANXIETY Last administered on 10/22/18 21:02; Admin Dose 1 MG; Start 10/21/18 at 20:00 UCHE RUIZ MD Oct 23, 2018 18:09
[2018-10-23 19:15] VITALS: BP 108/54; PULSE 89; RESP 18
[2018-10-23] MEDS: ATORVASTATIN 40 MG TAB PO SCH (20:25)
[2018-10-23] MEDS: LORAZEPAM 1 MG TAB PO PRN (20:28)
[2018-10-24 01:11] VITALS: BP 106/51; PULSE 78; RESP 18
[2018-10-24 07:49] VITALS: BP 133/61; PULSE 80; RESP 18
[2018-10-24] MEDS: HYDROCODONE/APAP (5/325) TAB PO PRN (08:04)
[2018-10-24] MEDS ORDERED: ENOXAPARIN 40 MG/0.4 ML SYG SC SCH (09:00)
[2018-10-24 09:36] VITALS: BP 114/72; PULSE 77; RESP 18
[2018-10-24] MEDS: APIXABAN 5 MG TABLET PO SCH ×2 (09:37→20:40)
[2018-10-24] MEDS: CLOPIDOGREL 75 MG TAB PO SCH (09:37)
[2018-10-24] MEDS: FAMOTIDINE 20 MG TAB PO SCH (09:38)
[2018-10-24] MEDS: SENNA/DOCUSATE NA (8.6MG/50MG) TAB PO SCH (09:38)
--- NOTE | 2018-10-24 12:10 | PN ---
Date/Time of Note Date/Time of Note DATE: 10/24/18 TIME: 12:09 Assessment/Plan VTE Prophylaxis Risk score (from Nsg)>0 risk: 5 SCD applied (from Ns): Yes SCD contraindicated: low risk/ambulating Pharmacological prophylaxis: LMWH Lines/Catheters IV Catheter Type (from Nrs): Saline Lock Assessment/Plan Hospital Course A/P 1. Atypical chest pain ruled out for ACS. Stable observe 2. Spinal stenosis, try conservative therapy. Discharge to ARU. 3. Chronic CAD/ PCI? Continue medical management 4. Anemia, stable 5. CHF? EF of 40 ischemic cardiomyopathy? 6. CKD stable 7. Dyslipidemia 8. Anxiety disorder? 9. DJD 10. Chronic A. fib continue rate control anticoagulation if stable 11. Old [place] status S: /No events /8 neck shoulder pain. No known aggravating or relieving factors. Pointing to her knee also O: Vital signs stable PE No pallor Regular Clear Benign No edema: No local erythema joint edema Result Diagram: 10/23/1883510/23/18 0836 Exam/Review of Systems Exam Vitals Vital Signs Date Temp Pulse Resp B/P (MAP) Pulse Ox O2 O2 Flow FiO2 Time Delivery Rate 10/24/18 77 18 114/72 09:36 (86) 10/24/18 98.9 98 07:49 10/22/18 Nasal 2.0 20:00 Cannula Intake and Output 10/23/18 10/23/18 10/24/18 1414:59 22:59 06:59 IntakeIntake Total 180 ml BalanceBalance 180 ml Medications Medication Current Medications Apixaban (Eliquis) 2.5 mg BID PO Last administered on 10/24/18at 09:37; Admin Dose 2.5 MG; Start 10/20/18 at 21:00 Atorvastatin Calcium (Lipitor) 40 mg QHS PO Last administered on 10/23/18at 20:25; Admin Dose 40 MG; Start 10/20/18 at 21:00 Clopidogrel Bisulfate (plaVIX) 75 mg DAILY PO Last administered on 10/24/18at 09:37; Admin Dose 75 MG; Start 10/21/18 at 09:00 Zolpidem Tartrate (Ambien) 5 mg QHS PRN PO NEEDED Last administered on 10/20/18at 22:54; Admin Dose 5 MG; Start 10/20/18 at 15:00 Lorazepam (Ativan) 1 mg Q8H PRN IV Anxiety Last administered on 10/21/18 22:09; Admin Dose 1 MG; Start 10/21/18 at 11:30 Acetaminophen/ Hydrocodone Bitart ([place] (5/325)) 1 tab Q6H PRN PO MODERATE PAIN LEVEL 4-6 Last administered on 10/24/18 08:04; Admin Dose 1 TAB; Start 10/21/18 at 20:00 Lorazepam (Ativan) 1 mg Q8H PRN PO ANXIETY Last administered on 10/23/18 20:28; Admin Dose 1 MG; Start 10/21/18 at 20:00 Carvedilol (Coreg) 3.125 mg BID PO ; Start 10/23/18 at 21:00 Furosemide (Lasix) 20 mg DAILY PO ; Start 10/25/18 at 09:00 Famotidine (Pepcid) 20 mg DAILY PO Last administered on 10/24/18 09:38; Admin Dose 20 MG; Start 10/24/18 at 09:00 Senna/Docusate Sodium (Senokot-S) 2 tab DAILY PO Last administered on 10/24/18 09:38; Admin Dose 2 TAB; Start 10/24/18 at 09:00 UCHE RUIZ MD Oct 24, 2018 12:10
[2018-10-24] MEDS ORDERED: ACETAMINOPHEN 325 MG TAB PO PRN (12:30)
[2018-10-24] MEDS ORDERED: morphine 4 MG/ML VIAL IV PRN (12:30)
[2018-10-24] MEDS: GABAPENTIN 100 MG CAP PO SCH ×2 (13:02→20:40)
[2018-10-24] MEDS: NAPROXEN 500 MG TAB PO SCH ×2 (13:02→20:40)
[2018-10-24 14:56] VITALS: BP 95/61; PULSE 83; RESP 15
[2018-10-24] MEDS ORDERED: ONDANSETRON 4 MG INJ IV PRN ×2 (15:30→16:00)
[2018-10-24 19:55] VITALS: BP 99/52; PULSE 85; RESP 18
[2018-10-24] MEDS: ATORVASTATIN 40 MG TAB PO SCH (20:40)
[2018-10-25 02:51] VITALS: BP 92/54; PULSE 79; RESP 18
[2018-10-25 08:27] VITALS: BP 118/56; PULSE 75; RESP 18
[2018-10-25] MEDS ORDERED: FUROSEMIDE 20 MG TAB PO SCH (09:00)
[2018-10-25] MEDS: APIXABAN 5 MG TABLET PO SCH ×2 (09:51→21:22)
[2018-10-25] MEDS: GABAPENTIN 100 MG CAP PO SCH ×3 (09:52→21:21)
[2018-10-25] MEDS: FAMOTIDINE 20 MG TAB PO SCH (09:52)
[2018-10-25] MEDS: NAPROXEN 500 MG TAB PO SCH ×3 (09:52→21:21)
[2018-10-25] MEDS: SENNA/DOCUSATE NA (8.6MG/50MG) TAB PO SCH (09:52)
[2018-10-25] MEDS: CLOPIDOGREL 75 MG TAB PO SCH (09:53)
[2018-10-25 15:23] VITALS: BP 106/52; PULSE 80; RESP 18
--- NOTE | 2018-10-25 18:42 | PN ---
Date/Time of Note Date/Time of Note DATE: 10/25/18 TIME: 18:40 Assessment/Plan VTE Prophylaxis Risk score (from Nsg)>0 risk: 5 SCD applied (from Nsg): Yes SCD contraindicated: low risk/ambulating Pharmacological prophylaxis: LMWH Lines/Catheters IV Catheter Type (from Nrsg): Saline Lock Assessment/Plan Hospital Course A/P 1. Atypical chest pain, ruled out for ACS. Stable observe 2. Spinal stenosis, try conservative therapy. Discharge to SNF. Recommended outpatient neurosurgery. 3. Chronic CAD/ PCI? Continue medical management 4. Anemia, stable 5. CHF? EF of 40 ischemic cardiomyopathy? 6. CKD stable 7. Dyslipidemia 8. Anxiety disorder? 9. DJD 10. Chronic A. fib continue rate control anticoagulation if stable/monitor, to avoid fall risk 11. Old [facility] status S: /No events /8 neck shoulder pain. No known aggravating or relieving factors. Pointing to her knee also /9: Appears more stable. Family wishes to go to SNF. O: Vital signs stable PE No pallor Regular Clear Benign No edema: No local erythema joint edema. Reflex symmetrical Straight leg raising test left above 45 right about 45 Result Diagram: 10/23/18 0836 10/23/18 0836 Exam/Review of Systems Exam Vitals Vital Signs Date Temp Pulse Resp B/P (MAP) Pulse Ox O2 O2 Flow FiO2 Time Delivery Rate 10/25/18 98.2 80 18 106/52 98 15:23 (70) 10/25/18 Nasal 2.0 07:30 Cannula Intake and Output 10/24/18 10/24/18 10/25/18 1515:00 23:00 07:00 OutputOutput Total 300 ml BalanceBalance -300 ml Medications Medication Current Medications Apixaban (Eliquis) 2.5 mg BID PO Last administered on 10/25/18at 09:51; Admin Dose 2.5 MG; Start 10/20/18 at 21:00 Atorvastatin Calcium (Lipitor) 40 mg QHS PO Last administered on 10/24/18at 2 0:40; Admin Dose 40 MG; Start 10/20/18 at 21:00 Clopidogrel Bisulfate (plaVIX) 75 mg DAILY PO Last administered on 10/25/18at 09:53; Admin Dose 75 MG; Start 10/21/18 at 09:00 Zolpidem Tartrate (Ambien) 5 mg QHS PRN PO NEEDED Last administered on 10/20/18 22:54; Admin Dose 5 MG; Start 10/20/18 at 15:00 Lorazepam (Ativan) 1 mg Q8H PRN IV Anxiety Last administered on 10/21/18 22:09; Admin Dose 1 MG; Start 10/21/18 at 11:30 Lorazepam (Ativan) 1 mg Q8H PRN PO ANXIETY Last administered on 10/23/18 20:28; Admin Dose 1 MG; Start 10/21/18 at 20:00 Famotidine (Pepcid) 20 mg DAILY PO Last administered on 10/25/18 09:52; Admin Dose 20 MG; Start 10/24/18 at 09:00 Senna/Docusate Sodium (Senokot-S) 2 tab DAILY PO Last administered on 10/25/18 09:52; Admin Dose 2 TAB; Start 10/24/18 at 09:00 Carvedilol (Coreg) 1.5625 mg BID PO ; Start 10/24/18 at 21:00 Acetaminophen/ Hydrocodone Bitart ([place] (10/325)) 1 tab Q4H PRN PO MODERATE PAIN LEVEL 4-6; Start 10/24/18 at 12:30 Morphine Sulfate (morphine) 3 mg Q3H PRN IV SEVERE PAIN LEVEL 7-10; Start 10/24/18 at 12:30 Gabapentin (Neurontin) 100 mg TID PO Last administered on 10/25/18at 14:11; Admin Dose 100 MG; Start 10/24/18 at 13:00 Acetaminophen (Tylenol Tab) 650 mg Q6H PRN PO MILD PAIN(1-3)OR ELEVATED TEMP; Start 10/24/18 at 12:30 Naproxen (Naprosyn) 500 mg TID PO Last administered on 10/25/18 14:11; Admin Dose 500 MG; Start 10/24/18 at 13:00 Ondansetron HCl (Zofran Inj) 4 mg Q4H PRN IV NAUSEA AND/OR VOMITING; Start 10/24/18 at 16:00 UCHE RUIZ MD Oct 25, 2018 18:42
[2018-10-25 19:58] VITALS: BP 90/53; PULSE 92; RESP 18
[2018-10-25] MEDS: ATORVASTATIN 40 MG TAB PO SCH (21:21)
[2018-10-26 02:46] VITALS: BP 110/57; PULSE 85; RESP 18
[2018-10-26 07:17] VITALS: BP 105/54; PULSE 78; RESP 19
[2018-10-26] MEDS: CLOPIDOGREL 75 MG TAB PO SCH (08:59)
[2018-10-26] MEDS: GABAPENTIN 100 MG CAP PO SCH ×3 (08:59→20:26)
[2018-10-26] MEDS: APIXABAN 5 MG TABLET PO SCH ×2 (08:59→20:26)
[2018-10-26] MEDS: NAPROXEN 500 MG TAB PO SCH (08:59)
[2018-10-26] MEDS: SENNA/DOCUSATE NA (8.6MG/50MG) TAB PO SCH (08:59)
[2018-10-26] MEDS: FAMOTIDINE 20 MG TAB PO SCH (08:59)
[2018-10-26] MEDS: HYDROCODONE/APAP (10/325) TAB PO PRN (09:08)
--- NOTE | 2018-10-26 11:56 | PN ---
Date/Time of Note Date/Time of Note DATE: 10/26/18 TIME: 11:49 Assessment/Plan VTE Prophylaxis Risk score (from Nsg)>0 risk: 5 SCD applied (from Nsg): Yes Pharmacological prophylaxis: apixaban Lines/Catheters IV Catheter Type (from Nrsg): Saline Lock Urinary Cath still in place: No Assessment/Plan Assessment/Plan 1. Atypical chest pain - resolved - ACS ruled out - Cardiology consultation appreciated. holding off on Entreso given low BP 2. Spinal stenosis - physical therapy and pain control - will need rehab prior to returning home - outpatient neurosurgery consultation if pain worsens 3. Anemia - stable - no need for transfusions at this time 4. Ischemic cardiomyopathy - EF 40% - stable 5. CKD - stable - avoid nephrotoxic agents 6. Chronic Atrial fibrillation - rate controlled - continue on Eliquis 7. Dyslipidemia 8. DJD - physical therapy - pain control 9. Disposition - Accepted to ARU pending insurance and family approval. Result Diagram: 10/23/18 0836 10/23/18 0836 Subjective 24 Hr Interval Summary Free Text/Dictation Patient denies any new issues. Resting comfortably and just asking for more blankets. Exam/Review of Systems Exam Vitals Vital Signs Date Temp Pulse Resp B/P (MAP) Pulse Ox O2 O2 Flow FiO2 Time Delivery Rate 10/26/18 Nasal 2.0 07:56 Cannula 10/26/18 98.1 78 19 105/54 99 07:17 (71) Intake and Output 10/25/18 10/25/18 10/26/18 1515:00 23:00 07:00 IntakeIntake Total 360 ml 240 ml 300 ml BalanceBalance 360 ml 240 ml 300 ml Exam General: no acute distress. Neck: supple Chest: nontender CVS: S1, S2, regular rate and rhythm. no murmurs Lungs: clear to auscultation bilaterally. no wheezing or rhonchi Abd: soft, nontender, nondistended. no rebound or guarding. bowel sounds present diffusely Ext: moving all extremities. no cyanosis, clubbing, or edema Skin: warm, dry. Medications Medication Current Medications Apixaban (Eliquis) 2.5 mg BID PO Last administered on 10/26/18at 08:59; Admin Dose 2.5 MG; Start 10/20/18 at 21:00 Atorvastatin Calcium (Lipitor) 40 mg QHS PO Last administered on 10/25/18 21:21; Admin Dose 40 MG; Start 10/20/18 at 21:00 Clopidogrel Bisulfate (plaVIX) 75 mg DAILY PO Last administered on 10/26/18 08:59; Admin Dose 75 MG; Start 10/21/18 at 09:00 Zolpidem Tartrate (Ambien) 5 mg QHS PRN PO NEEDED Last administered on 10/20 22:54; Admin Dose 5 MG; Start 10/20/18 at 15:00 Lorazepam (Ativan) 1 mg Q8H PRN IV Anxiety Last administered on 10/21/18 22:09; Admin Dose 1 MG; Start 10/21/18 at 11:30 Lorazepam (Ativan) 1 mg Q8H PRN PO ANXIETY Last administered on 10/23/18 20:28; Admin Dose 1 MG; Start 10/21/18 at 20:00 Famotidine (Pepcid) 20 mg DAILY PO Last administered on 10/26/18 08:59; Admin Dose 20 MG; Start 10/24/18 at 09:00 Senna/Docusate Sodium (Senokot-S) 2 tab DAILY PO Last administered on 10/26/18 08:59; Admin Dose 2 TAB; Start 10/24/18 at 09:00 Carvedilol (Coreg) 1.5625 mg BID PO Last administered on 10/26/18 09:00; Admin Dose 1.5625 MG; Start 10/24/18 at 21:00 Acetaminophen/ Hydrocodone Bitart ([place] (10/325)) 1 tab Q4H PRN PO MODERATE PAIN LEVEL 4-6 Last administered on 10/26/18 09:08; Admin Dose 1 TAB; Start 10/24/18 at 12:30 Morphine Sulfate (morphine) 3 mg Q3H PRN IV SEVERE PAIN LEVEL 7-10; Start 10/24/18 at 12:30 Gabapentin (Neurontin) 100 mg TID PO Last administered on 10/26/18 08:59; A dmin Dose 100 MG; Start 10/24/18 at 13:00 Acetaminophen (Tylenol Tab) 650 mg Q6H PRN PO MILD PAIN(1-3)OR ELEVATED TEMP; Start 10/24/18 at 12:30 Naproxen (Naprosyn) 500 mg TID PO Last administered on 10/26/18at 08:59; Admin Dose 500 MG; Start 10/24/18 at 13:00 Ondansetron HCl (Zofran Inj) 4 mg Q4H PRN IV NAUSEA AND/OR VOMITING; Start 10/24/18 at 16:00 AMY BURGESS MD Oct 26, 2018 11:56
[2018-10-26] MEDS ORDERED: NAPROXEN 500 MG TAB PO PRN (12:00)
[2018-10-26 15:55] VITALS: BP 116/58; PULSE 82; RESP 18
--- NOTE | 2018-10-26 16:33 | PDOCDIS ---
Discharge Instructions DIAGNOSIS Discharge Diagnosis 1. Atypical chest pain- resolved 2. Spinal stenosis 3. Anemia 4. Ischemic cardiomyopathy, EF 40% 5. CKD 6. Chronic Atrial fibrillation 7. Dyslipidemia 8. DJD CONDITION [id number] Patient Condition: [id number] Stable HOME CARE INSTRUCTIONS: [id number] Diet Instructions: [id number] Low Fat /Cholesterol FOLLOW UP/APPOINTMENTS Follow-up Plan 1. Follow up with your primary care physician in 1-2 weeks 2. Follow up with your outpatient measurement psychologist in 2-3 weeks 3. Continue all medications as prescribed 4. If you continue to experiencing back pain following physical therapy, ask you r primary care physician for a referral to a Neurosurgeon 5. If experiencing any further chest pain or other concerning symptoms, please go to your nearest emergency department for evaluation 6. Continue with low carb, low fat, low cholesterol diet and increase physical activity as tolerated AMY BURGESS MD Oct 26, 2018 16:33
[2018-10-26 20:18] VITALS: BP 100/51; PULSE 63; RESP 18
[2018-10-26] MEDS: ATORVASTATIN 40 MG TAB PO SCH (20:26)
[2018-10-27 01:44] VITALS: BP 153/67; PULSE 84; RESP 20
[2018-10-27 01:45] VITALS: BP 146/67
[2018-10-27] MEDS: HYDROCODONE/APAP (10/325) TAB PO PRN (01:48)
[2018-10-27 07:26] VITALS: BP 117/64; PULSE 67; RESP 18
[2018-10-27] MEDS: CLOPIDOGREL 75 MG TAB PO SCH (08:20)
[2018-10-27] MEDS: SENNA/DOCUSATE NA (8.6MG/50MG) TAB PO SCH (08:20)
[2018-10-27] MEDS: GABAPENTIN 100 MG CAP PO SCH ×2 (08:21→12:01)
[2018-10-27] MEDS: FAMOTIDINE 20 MG TAB PO SCH (08:21)
[2018-10-27] MEDS: APIXABAN 5 MG TABLET PO SCH (08:22)
--- NOTE | 2018-10-27 10:48 | PN ---
Date/Time of Note Date/Time of Note DATE: 10/27/18 TIME: 10:43 Assessment/Plan VTE Prophylaxis Risk score (from Nsg)>0 risk: 4 SCD applied (from Nsg): Yes Pharmacological prophylaxis: apixaban Lines/Catheters IV Catheter Type (from Nrsg): Saline Lock Urinary Cath still in place: No Assessment/Plan Assessment/Plan 1. Atypical chest pain- resolved - ACS ruled out - Cardiology consultation appreciated. holding off on Entreso given low BP 2. Spinal stenosis - physical therapy and pain control. plans for SNF prior to returning home - outpatient neurosurgery consultation if pain worsens 3. Anemia - stable - no need for transfusions at this time 4. Ischemic cardiomyopathy - EF 40% - stable 5. CKD - stable 6. Chronic Atrial fibrillation - rate controlled - continue on Eliquis 7. Dyslipidemia 8. DJD - pain control 9. Disposition - Medically stable for discharge to SNF Result Diagram: 10/23/18 0836 10/23/18 0836 Subjective 24 Hr Interval Summary Free Text/Dictation Patient still complaining of pain in back area. Denies any new issues. No acute overnight events. Exam/Review of Systems Exam Vitals Vital Signs Date Temp Pulse Resp B/P (MAP) Pulse Ox O2 O2 Flow FiO2 Time Delivery Rate 10/27/18 97.9 67 18 117/64 100 Room Air 07:26 (81) 10/26/18 2.0 20:10 Intake and Output 10/26/18 10/26/18 10/27/18 1515:00 23:00 07:00 IntakeIntake Total 605 ml BalanceBalance 605 ml Exam General: mild distress due to pain Neck: supple Chest: nontender CVS: S1, S2, regular rate and rhythm. no murmurs Lungs: clear to auscultation bilaterally. no wheezing or rhonchi Abd: soft, nontender, nondistended. no rebound or guarding. bowel sounds present diffusely Ext: moving all extremities. no cyanosis, clubbing, or edema Skin: warm, dry. Medications Medication Current Medications Apixaban (Eliquis) 2.5 mg BID PO Last administered on 10/27/18at 08:22; Admin Dose 2.5 MG; Start 10/20/18 at 21:00 Atorvastatin Calcium (Lipitor) 40 mg QHS PO Last administered on 10/26/18at 20:26; Admin Dose 40 MG; Start 10/20/18 at 21:00 Clopidogrel Bisulfate (plaVIX) 75 mg DAILY PO Last administered on 10/27/18 08:20; Admin Dose 75 MG; Start 10/21/18 at 09:00 Zolpidem Tartrate (Ambien) 5 mg QHS PRN PO NEEDED Last administered on 10/20/18 22:54; Admin Dose 5 MG; Start 10/20/18 at 15:00 Lorazepam (Ativan) 1 mg Q8H PRN IV Anxiety Last administered on 10/21/18 22:09; Admin Dose 1 MG; Start 10/21/18 at 11:30 Lorazepam (Ativan) 1 mg Q8H PRN PO ANXIETY Last administered on 10/23/18 20:28; Admin Dose 1 MG; Start 10/21/18 at 20:00 Famotidine (Pepcid) 20 mg DAILY PO Last administered on 10/27/18 08:21; Admin Dose 20 MG; Start 10/24/18 at 09:00 Senna/Docusate Sodium (Senokot-S) 2 tab DAILY PO Last administered on 10/27/18 08:20; Admin Dose 2 TAB; Start 10/24/18 at 09:00 Carvedilol (Coreg) 1.5625 mg BID PO Last administered on 10/27/18 08:22; Admin Dose 1.5625 MG; Start 10/24/18 at 21:00 Acetaminophen/ Hydrocodone Bitart ([place] (10/325)) 1 tab Q4H PRN PO MODERATE PAIN LEVEL 4-6 Last administered on 10/27/18 01:48; Admin Dose 1 TAB; Start 10/24/18 at 12:30 Morphine Sulfate (morphine) 3 mg Q3H PRN IV SEVERE PAIN LEVEL 7-10; Start 10/24/18 at 12:30 Gabapentin (Neurontin) 100 mg TID PO Last administered on 10/27/18 08:21; Admin Dose 100 MG; Start 10/24/18 at 13:00 Acetaminophen (Tylenol Tab) 650 mg Q6H PRN PO MILD PAIN(1-3)OR ELEVATED TEMP; Start 10/24/18 at 12:30 Ondansetron HCl (Zofran Inj) 4 mg Q4H PRN IV NAUSEA AND/OR VOMITING; Start 10/24/18 at 16:00 Naproxen (Naprosyn) 500 mg TID PRN PO pain; Start 10/26/18 at 12:00 AMY BURGESS MD Oct 27, 2018 10:48
--- NOTE | 2018-10-27 17:07 | DS ---
Date/Time of Note Date/Time of Note DATE: 10/27/18 TIME: 17:03 Discharge Summary Admission/Discharge Info Admit Date/Time Oct 21, 2018 at 16:50 Discharge Date/Time Oct 27, 2018 at 15:08 Discharge Diagnosis 1. Atypical chest pain- resolved 2. Spinal stenosis 3. Anemia 4. Ischemic cardiomyopathy, EF 40% 5. CKD 6. Chronic Atrial fibrillation 7. Dyslipidemia 8. DJD Patient Condition: Stable Consults Cardiology- Dr. Mo Hx of Present Illness 83 yo female with h/o systolic CHF, CAD, A FIb who presents with chest symptoms and nausea this AM Patient in usual state of heatlh until this morning. Woke up with nausea, palpitations then proceeded to chest pain and dyspnea. Vomited. Family called 911. Symptoms all resolved spontaneously. Currently feels well, back to normal. Only complaint is of chronic back pain. in ED had CT-A that was negative for PE Hospital Course Patient was admitted for evaluation of acute chest pain and questionable arrhythmia. Cardiology was consulted and ACS was ruled out with negative serial troponins and EKG negative for acute ST changes. Patient complained of chronic back pain from spinal stenosis and was evaluated by physical therapy who recommended rehab. Family agreed to rehab placement prior to discharge home. Patients BP medications were adjusted and Entreso was held due to hypotension. Patients acute issues resolved and was discharged to SNF to continue physical therapy for chronic back pain. Patients vitals and physical exam were stable at time of discharge. Home Meds Reported Medications Zolpidem Tartrate* (Zolpidem Tartrate*) 5 Mg Tablet, 5 MG PO QHS PRN for NEEDED, #30 TAB 10/20/18 Clopidogrel Bisulfate* (Clopidogrel Bisulfate*) 75 Mg Tablet, 75 MG PO DAILY, #30 TAB 06/25/18 Furosemide* (Furosemide*) 40 Mg Tablet, 40 MG PO DAILY, TAB 06/25/18 Sacubitril/Valsartan (Entresto 49 mg-51 mg Tablet) 1 Each Tablet, 1 EACH PO BID, TAB 06/25/18 Atorvastatin* (Atorvastatin*) 40 Mg Tablet, 40 MG PO QHS, #30 TAB 06/25/18 Carvedilol* (Carvedilol*) 6.25 Mg Tablet, 6.25 MG PO BID, #60 TAB 06/25/18 Apixaban* (Eliquis*) 2.5 Mg Tablet, 2.5 MG PO BID, TAB 06/25/18 Follow-up Plan 1. Follow up with your primary care physician in 1-2 weeks 2. Follow up with your outpatient bus monitor in 2-3 weeks 3. Continue all medications as prescribed 4. If you continue to experiencing back pain following physical therapy, ask your primary care physician for a referral to a Neurosurgeon 5. If experiencing any further chest pain or other concerning symptoms, please go to your nearest emergency department for evaluation 6. Continue with low carb, low fat, low cholesterol diet and increase physical activity as tolerated Primary Care Provider Shahzad Crowell Time spent on discharge: > 30 minutes AMY BURGESS MD Oct 27, 2018 17:07
== END 2018-10-27 15:08 | DRG 313 ==
LOC: E/R 10:58 → TEL 14:14 → SUATTDRO 14:56 → OBSVTOIN 10-21 16:50 → MS1 10-22 16:21
PROVIDERS: ADMIT Internal Medicine; ATTEND Internal Medicine
DX: R07.89 Other chest pain (principal); I50.22 Chronic systolic (congestive) heart failure; I48.91 Unspecified atrial fibrillation; M54.9 Dorsalgia, unspecified; I11.0 Hypertensive heart disease with heart failure; Z95.5 Presence of coronary angioplasty implant and graft; I25.5 Ischemic cardiomyopathy; E78.5 Hyperlipidemia, unspecified; I25.2 Old myocardial infarction; M48.00 Spinal stenosis, site unspecified; I95.9 Hypotension, unspecified
CPT/HCPCS: 36415; 71045; 71275; 72040; 72148; 80048; 80053; 80061; 82550; 82553; 83036; 83735; 83880; 84100; 84484; 85025; 85610; 85730; 93005; 96374; 96375; 97116; 97161; 97530; 99217; G0378; J2060; J2270; J2405; J7040; Q9967

== ENCOUNTER 2018-11-20 20:02 | Emergency (ER) | payer MEDICARE, OTHER ==
[~2018-11-20] VITALS: Ht 170.2 cm; Wt 70.0 kg
[~2018-11-20 20:02] MED LIST changes: +ZOLP5TAB7 PO
[2018-11-20 20:06] VITALS: Ht 170.2 cm; Wt 70.0 kg
--- NOTE | 2018-11-20 20:18 | ERD ---
ER Documentation Chief Complaint Chief Complaint bib ra from home for chest pressure and anxiety, given 1 asa, 1 spray nitro HPI This is a 83-year-old woman with a long history of anxiety complaining of recent dizziness x2 days and sharp nonradiating nonexertional chest pain, which she has on a regular basis. She does have a history of obesity and CAD status post PTCA with stents x5. She states she used her aspirin today without difficulty. She has this kind of sharp chest pain almost on a daily basis and family members who were at the bedside state she suffers from anxiety and has regular episodes of this type of chest pain. Patient denies calf or leg swelling, no shortness of breath, no cough, no fevers or chills, no vomiting or diarrhea, no abdominal pain. Patient was transported here by EMS without further complications ROS All systems reviewed and are negative except as per history of present illness. Medications Home Meds Active Scripts Cephalexin* (Keflex*) 500 Mg Capsule, 500 MG PO TID for 7 Days, CAP Prov:JENNIFER LOMELI MD 11/20/18 Reported Medications Zolpidem Tartrate* (Zolpidem Tartrate*) 5 Mg Tablet, 5 MG PO QHS PRN for NEEDED, #30 TAB 10/20/18 Clopidogrel Bisulfate* (Clopidogrel Bisulfate*) 75 Mg Tablet, 75 MG PO DAILY, #30 TAB 06/25/18 Furosemide* (Furosemide*) 40 Mg Tablet, 40 MG PO DAILY, TAB 06/25/18 Sacubitril/Valsartan (Entresto 49 mg-51 mg Tablet) 1 Each Tablet, 1 EACH PO BID, TAB 06/25/18 Atorvastatin* (Atorvastatin*) 40 Mg Tablet, 40 MG PO QHS, #30 TAB 06/25/18 Carvedilol* (Carvedilol*) 6.25 Mg Tablet, 6.25 MG PO BID, #60 TAB 06/25/18 Apixaban* (Eliquis*) 2.5 Mg Tablet, 2.5 MG PO BID, TAB 06/25/18 Allergies Allergies: Coded Allergies: No Known Allergy (Unverified , 10/20/18) PMhx/Soc History of chronic recurrent low back pain and spinal stenosis, history of MO and PCI with stent placement, anemia, dyslipidemia, anxiety, atrial fibrillation, cardiomyopathy with LVEF of 40%, anxiety History of Surgery: Yes (stent placement x3 in 2018, then 2 weeks a go) Anesthesia Reaction: No Hx Neurological Disorder: No Hx Respiratory Disorders: No Hx Cardiac Disorders: Yes (HTN, CAD, CHF, stroke 2016, MO 2017) Hx Psychiatric Problems: No Hx Miscellaneous Medical Probl: Yes (systolic CHF, CAD s/p anterior STEMI 06/2017, Afib,) Hx Alcohol Use: No Hx Substance Use: No Hx Tobacco Use: No Smoking Status: Never smoker FmHx Family History: No diabetes Physical Exam Vitals Vital Signs Date Temp Pulse Resp B/P (MAP) Pulse Ox O2 O2 Flow FiO2 Time Delivery Rate 11/20/18 74 17 165/92 99 Room Air 21:30 (116) 11/20/18 98.9 81 19 135/94 96 20:06 (108) Physical Exam GENERAL: Well-developed, well-nourished, anxious, afebrile CARDIAC: Regular rate and rhythm, no murmurs rubs or gallops LUNGS: Clear bilaterally no wheezing crackles or stridor ABDOMEN: Soft nontender, no guarding, no rigidity, no rebound, no psoas sign no obturator sign. SKIN: Warm and dry to touch, no abrasions, contusions, or hematomas, no lacerations, no ecchymosis, no target lesions, and without ulcers EXTREMITIES: No clubbing cyanosis or edema, calves are bilaterally symmetrical, no Homans sign, no popliteal cord sign. Distal pulses equal and bilateral PSYCH: Anxious Result Diagram: 11/20/18202011/20/182020 Results 24 hrs Laboratory Tests Test 11/20/18 20:21 11/20/18 20:56 White Blood Count 11.1 10^3/ul Red Blood Count 3.53 10^6/ul Hemoglobin 10.1 g/dl Hematocrit 30.6 % Mean Corpuscular Volume 86.7 fl Mean Corpuscular Hemoglobin 28.6 pg Mean Corpuscular Hemoglobin Concent 33.0 g/dl Red Cell Distribution Width 15.0 % Platelet Count 327 10^3/UL Mean Platelet Volume 10.2 fl Immature Granulocytes % 0.600 % Neutrophils % 71.1 % Lymphocytes % 17.9 % Monocytes % 10.2 % Eosinophils % 0.0 % Basophils % 0.2 % Nucleated Red Blood Cells % 0.0 /100WBC Immature Granulocytes # 0.070 10^3/ul Neutrophils # 7.9 10^3/ul Lymphocytes # 2.0 10^3/ul Monocytes # 1.1 10^3/ul Eosinophils # 0.0 10^3/ul Basophils # 0.0 10^3/ul Nucleated Red Blood Cells # 0.0 10^3/ul Sodium Level 140 mmol/L Potassium Level 4.5 mmol/L Chloride Level 113 mmol/L Carbon Dioxide Level 20 mmol/L Anion Gap 7 Blood Urea Nitrogen 24 mg/dl Creatinine 0.99 mg/dl Est Glomerular Filtrat Rate mL/min mL/min Glucose Level 108 mg/dl Calcium Level 8.4 mg/dl Total Bilirubin 0.5 mg/dl Direct Bilirubin 0.00 mg/dl Indirect Bilirubin 0.5 mg/dl Aspartate Amino Transf (AST/SGOT) 31 IU/L Alanine Aminotransferase (ALT/SGPT) 41 IU/L Alkaline Phosphatase 54 IU/L Troponin I < 0.012 ng/ml B-Type Natriuretic Peptide 5500 PG/ML Total Protein 6.1 g/dl Albumin 3.1 g/dl Globulin 3.00 g/dl Albumin/Globulin Ratio 1.03 Lipase 100 U/L Urine Color YELLOW Urine Clarity SLIGHTLY CLOUDY Urine pH 7.0 Urine Specific [place] 1.016 Urine Ketones NEGATIVE mg/dL Urine Nitrite NEGATIVE mg/dL Urine Bilirubin NEGATIVE mg/dL Urine Urobilinogen NEGATIVE mg/dL Urine Leukocyte Esterase TRACE Navya/ul Urine Microscopic RBC 5 /HPF Urine Microscopic WBC 3 /HPF Urine Squamous Epithelial Cells FEW /HPF Urine Bacteria FEW /HPF Urine Hemoglobin 1+ mg/dL Urine Glucose NEGATIVE mg/dL Urine Total Protein NEGATIVE mg/dl Current Medications Medications Dose Sig/Christofer Start Time Status Last (Trade) Ordered Route PRN Stop Time Admin Dose Reason Admin Sodium 1,000 ml @ Q1H STAT 11/20/18 DC 11/20/18 Chloride 1,000 mls/hr IV 21:24 11/20/18 21:35 22:23 Cephalexin 500 mg ONCE ONCE 11/20/18 DC 11/20/18 (Keflex) PO 21:30 11/20/18 21:35 21:31 Procedures/MDM IV line was established patient was placed on telecommunications repairer rhythm strip revealed a sinus rhythm at about 80 bpm with upright P and T waves. Patient was afebrile EKG performed, read by me: 82 bpm, normal sinus rhythm, normal axis, no acute ST segment changes, narrow QRS complex, with good R-wave progression in precordial leads, anterolateral T wave inversions. 1 view chest x-ray performed, read by me revealed cardiomegaly and atelectatic changes, no pulmonary edema, no acute infiltrates, no pneumothorax. Urine analysis is positive for infection I treated her here with cephalexin 500 mg p.o. x1. Administered 500 cc normal saline IV. Provided reassurance to the patient and her family members were at the bedside. Her chest pain does not sound cardiac in origin and she has no signs or symptoms of decompensated heart failure or pulmonary edema. She is laying flat in bed without difficulty breathing, her oxygen saturation is 100% on room air, respiratory rate of 16 breaths/min and normal. I recommended she continue her medications as prescribed including aspirin and furosemide, and I will prescribe cephalexin x1 week. Differential diagnoses considered, included but not limited to acute coronary syndrome, pulmonary embolism, aortic dissection, abdominal aortic aneurysm, sepsis, stroke, meningitis, encephalitis, pneumonia, appendicitis, cholecystitis, bowel obstruction, pyelonephritis, nephrolithiasis, cystitis, as well as metabolic, hematologic, and electrolyte abnormalities. As well as abscess, cellulitis, fractures, and dislocations. Patient feels much better at this time, and vital signs are normal, symptoms have improved. I did give strict instructions to return to the ED if symptoms continue or worsen, patient will otherwise follow-up with primary care physician. Patient understood instructions and agreed to plan. Disclaimer: Inadvertent spelling and grammatical errors are likely due to EHR/dictation software use and do not reflect on the overall quality of patient care. Also, please note that the electronic time recorded on this note does not necessarily reflect the actual time of the patient encounter. Departure Diagnosis: Primary Impression: Chest pain Chest pain type: unspecified Qualified Codes: R07.9 - Chest pain, unspecified Additional Impressions: Acute UTI Acute anxiety Condition: Good JENNIFER LOMELI MD Nov 20, 2018 20:18
[2018-11-20] MEDS ORDERED: SOD CHLORIDE 0.9% 1,000 ML IV STA (21:24)
[2018-11-20] MEDS ORDERED: CEPHALEXIN 500 MG CAP PO ONE (21:30)
[2018-11-20] MEDS ORDERED: CEPH-443 PO (22:33)
[2018-11-20 23:01] VITALS: BP 170/87; PULSE 76; RESP 18
== END 2018-11-20 23:01 | disposition home or self-care (01) ==
LOC: E/R 20:02
DX: N39.0 Urinary tract infection, site not specified (principal); F41.9 Anxiety disorder, unspecified; I25.10 Atherosclerotic heart disease of native coronary artery without angina pectoris; I10 Essential (primary) hypertension; I50.9 Heart failure, unspecified; I25.2 Old myocardial infarction; E66.9 Obesity, unspecified; Z79.01 Long term (current) use of anticoagulants; Z68.24 Body mass index [BMI] 24.0-24.9, adult
CPT/HCPCS: 71045; 80053; 81001; 83690; 83880; 84484; 85025; 87086; J7030; 36415; 93005

== ENCOUNTER 2018-11-30 17:39 | Inpatient (IN) | payer MEDICARE, OTHER ==
[~2018-11-30] VITALS: Ht 160 cm; Wt 69.2 kg
[~2018-11-30 17:39] MED LIST changes: +CEPH-443 PO
--- NOTE | 2018-11-30 17:58 | ERD ---
ER Documentation Chief Complaint Chief Complaint low back pain HPI The patient is a 83-year-old female, presenting to the ER because of acute low back pain, general body pain, dyspnea for the last couple days. She is a very poor historian. She denies headache, chest pain, abdominal pain, vomiting, diarrhea. She does not smoke nor drink Medical history: Dyslipidemia, CAD, history of CHF, history of CVA, chronic low back pain, spinal stenosis, ischemic cardiomyopathy EF 40%, chronic kidney disease, atrial fibrillation, left eye blindness Past surgical history: Stent PCI Medications Home Meds Reported Medications Escitalopram Oxalate* (Escitalopram Oxalate*) 5 Mg Tablet, 5 MG PO DAILY for 30 Days, #30 take 1 tablet by mouth once daily 11/30/18 Lorazepam* (Lorazepam*) 1 Mg Tablet, 1 MG PO BID PRN for ANXIETY, #30 TAB 11/30/18 Tramadol HCl (Tramadol HCl) 50 Mg Tablet, 50 MG PO QHS for 30 Days, #30 11/30/18 Ibuprofen* (Ibuprofen*) 800 Mg Tablet, 800 MG PO Q6H PRN for PAIN LEVEL 6-10 11/30/18 Meclizine Hcl* (Meclizine Hcl*) 25 Mg Tablet, 25 MG PO DAILY for 30 Days, #30 11/30/18 Clopidogrel Bisulfate (Clopidogrel) 75 Mg Tablet, 75 MG PO DAILY for 30 Days, #30 11/30/18 Pantoprazole* (Pantoprazole*) 40 Mg Tablet.dr, 40 MG PO DAILY for 30 Days, #30 11/30/18 Docusate Sodium (Col-Rite) 100 Mg Capsule, 100 MG PO Q12 for 30 Days, #60 take 1 capsule by mouth every 12 hours if needed for constipation; 11/30/18 Ipratropium [place]* (Atrovent HFA*) 12.9 Gm Aer.w.adap, 2 PUFF INHALATION Q4H for SHORTNESS OF BREATH, #1 INHALER 11/30/18 Megestrol Acetate* (Megace*) 40 Mg Tab, 40 MG PO BID for 30 Days, #60 11/30/18 Zolpidem Tartrate* (Zolpidem Tartrate*) 5 Mg Tablet, 5 MG PO QHS PRN for NEEDED, #30 TAB 10/20/18 Clopidogrel Bisulfate* (Clopidogrel Bisulfate*) 75 Mg Tablet, 75 MG PO DAILY, #30 TAB 06/25/18 Furosemide* (Furosemide*) 40 Mg Tablet, 40 MG PO DAILY, TAB 06/25/18 Sacubitril/Valsartan (Entresto 49 mg-51 mg Tablet) 1 Each Tablet, 1 EACH PO BID, TAB 06/25/18 Atorvastatin* (Atorvastatin*) 40 Mg Tablet, 40 MG PO QHS, #30 TAB 06/25/18 Carvedilol* (Carvedilol*) 6.25 Mg Tablet, 6.25 MG PO BID, #60 TAB 06/25/18 Apixaban* (Eliquis*) 2.5 Mg Tablet, 2.5 MG PO BID, TAB 06/25/18 Discontinued Reported Medications Zolpidem Tartrate* (Zolpidem Tartrate*) 10 Mg Tablet, 10 MG PO DAILY for 30 Days, #30 11/30/18 Discontinued Scripts Cephalexin* (Keflex*) 500 Mg Capsule, 500 MG PO TID for 7 Days, CAP Prov:JENNIFER LOMELI MD 11/20/18 Allergies Allergies: Coded Allergies: No Known Allergy (Unverified , 11/30/18) PMhx/Soc History of Surgery: Yes (stent placement x3 in 2018, then 2 weeks a go) Anesthesia Reaction: No Hx Neurological Disorder: No Hx Respiratory Disorders: No Hx Cardiac Disorders: Yes (HTN, CAD, CHF, stroke 2016, SD 2017) Hx Psychiatric Problems: No Hx Miscellaneous Medical Probl: Yes (systolic CHF, CAD s/p anterior STEMI 06/2017, Afib,) Hx Alcohol Use: No Hx Substance Use: No Hx Tobacco Use: No Physical Exam Vitals Vital Signs Date Temp Pulse Resp B/P (MAP) Pulse Ox O2 O2 Flow FiO2 Time Delivery Rate 11/30/18 98.1 72 18 151/116 99 17:57 (128) Physical Exam Const: No acute distress. Head: Atraumatic. Eyes: Normal Conjunctiva. ENT: Normal External Ears, Nose and Mouth. Neck: Full range of motion. No meningismus. Resp: Bibasilar crackle Cardio: Regular rate and rhythm. Abd: Soft, non distended, normal bowel sounds, mild bilateral CVA tenderness Skin: No petechiae or rashes. Back: No midline or flank tenderness. Ext: No cyanosis, or edema. Neur: Awake and alert. No focal deficit Psych: Normal Mood and Affect. Result Diagram: 12/01/18 0839 12/01/18 0839 Results 24 hrs Laboratory Tests Test 11/30/18 17:57 11/30/18 18:34 11/30/18 19:01 11/30/18 19:12 White Blood Count 10.6 10^3/ul Red Blood Count 3.24 10^6/ul Hemoglobin 9.3 g/dl Hematocrit 28.0 % Mean Corpuscular 86.4 fl Volume Mean Corpuscular 28.7 pg Hemoglobin Mean Corpuscular 33.2 g/dl Hemoglobin Concen t Red Cell 14.6 % Distribution Width Platelet Count 283 10^3/UL Mean Platelet 9.8 fl Volume Immature 0.200 % Granulocytes % Neutrophils % 72.8 % Lymphocytes % 19.1 % Monocytes % 6.3 % Eosinophils % 1.3 % Basophils % 0.3 % Nucleated Red 0.0 /100WBC Blood Cells % Immature 0.020 10^3/ul Granulocytes # Neutrophils # 7.7 10^3/ul Lymphocytes # 2.0 10^3/ul Monocytes # 0.7 10^3/ul Eosinophils # 0.1 10^3/ul Basophils # 0.0 10^3/ul Nucleated Red 0.0 10^3/ul Blood Cells # Sodium Level 139 mmol/L Potassium Level 3.7 mmol/L Chloride Level 112 mmol/L Carbon Dioxide 16 mmol/L Level Anion Gap 11 Blood Urea 8 mg/dl Nitrogen Creatinine 0.81 mg/dl Est Glomerular mL/min Filtrat Rate mL/min Glucose Level 99 mg/dl Calcium Level 9.1 mg/dl Total Bilirubin 0.9 mg/dl Direct Bilirubin 0.00 mg/dl Indirect 0.9 mg/dl Bilirubin Aspartate Amino 17 IU/L Transf (AST/SGOT) Alanine 26 IU/L Aminotransferase (ALT/SGPT) Alkaline 59 IU/L Phosphatase Troponin I < 0.012 ng/ml B-Type 4410 PG/ML Natriuretic Peptide Total Protein 6.4 g/dl Albumin 3.3 g/dl Globulin 3.10 g/dl Albumin/Globulin 1.06 Ratio Lipase 93 U/L Bedside Glucose 96 mg/dL Urine Color YELLOW Urine Clarity CLOUDY Urine pH 7.0 Urine Specific 1.006 [place] Urine Ketones TRACE mg/dL Urine Nitrite NEGATIVE mg/dL Urine Bilirubin NEGATIVE mg/dL Urine NEGATIVE mg/dL Urobilinogen Urine Leukocyte 2+ Navya/ul Esterase Urine Microscopic 2 /HPF RBC Urine Microscopic 3 /HPF WBC Urine Squamous MODERATE /HPF Epithelial Cells Urine Bacteria FEW /HPF Urine Hemoglobin 1+ mg/dL Urine Glucose NEGATIVE mg/dL Urine Total NEGATIVE mg/dl Protein Bedside Urine pH 7.0 (LAB) Bedside Urine 1+ Protein (LAB) Bedside Urine Negative Glucose (UA) Bedside Urine Trace Ketones (LAB) Bedside Urine Trace-intact Blood Bedside Urine Negative Nitrite (LAB) Bedside Urine 2+ Leukocyte Esteras e (L Current Medications Medications Dose Sig/Christofer Start Time Status Last (Trade) Ordered Route PRN Stop Time Admin Dose Reason Admin Morphine 2 mg ONCE STAT 11/30/18 DC 11/30/18 Sulfate IV 18:06 18:49 (morphine) 11/30/18 18:09 Ondansetron 4 mg ONCE STAT 11/30/18 DC 11/30/18 HCl (Zofran IV 18:06 18:49 Inj) 11/30/18 18:09 Ceftriaxone 50 ml @ ONCE ONCE 11/30/18 DC 11/30/18 Sodium 100 mls/hr IVPB 20:00 20:06 11/30/18 20:29 Furosemide 40 mg ONCE ONCE 11/30/18 DC 11/30/18 (Lasix) IV 20:00 20:08 11/30/18 20:01 Procedures/[place] [id number] Radiology Main Line: [phone] DIAGNOSTIC IMAGING REPORT Patient: HORACE BERUMEN : 1935 Age: 83 Sex: F [id number] DOS: 11/30/181942 Ordering MD: AYAD AYALA MD Location: [facility] Room/Bed: 510-B PROCEDURE: XR Chest. CLINICAL INDICATION: Shortness of breath TECHNIQUE: Single portable view of the chest was obtained COMPARISON: DX CHEST 11/06/2017; CR CHEST 12/24/2013; CR CHEST 03/15/2012 FINDINGS: The trachea is midline. The cardiac silhouette is mildly enlarged and pulmonary vascularity are within normal limits. The lungs are clear. The costophrenic angles are sharp. There is mild atherosclerotic calcification of the aortic knob. IMPRESSION: 1. Mild cardiomegaly. No evidence of acute cardiopulmonary disease. 2. Mild atherosclerotic disease. RPTAT: AAPP Physician Angela Date Time Electronically viewed and signed by Nathaly Turner Physician on 11/30/2018 23:31 JL/ CC: AYAD AYALA MD [phone] EKG: Read by emergency physician Rate/Rhythm: Normal Sinus Rhythm 70 beats/min QRS, ST, T-waves: No ST elevation, anterior T abnormality Impression: Abnormal EKG MEDICAL MAKING DECISION: The patient is a 83-year-old female, presenting with acute pyelonephritis, acute CHF exacerbation. She was treated with the Rocephin 1 g IV for acute pyelonephritis, Lasix 40 mg IV for acute CHF exacerbation The differential diagnoses considered include but are not limited to ch olecystitis, cystitis, asthma, COPD, pneumonia, pulmonary embolus, pleural effusion, congestive heart failure. Departure Diagnosis: Primary Impression: Pyelonephritis Additional Impressions: CHF (congestive heart failure) Anemia Condition: Stable Comments I discussed the findings with the patient. I notified the patient with Dr. Killian at 8 PM via [employer] , who was made aware of the lab, the treatment, the patient condition. The patient is admitted to [facility] Disclaimer: Inadvertent spelling and grammatical errors are likely due to EHR/dictation software use and do not reflect on the overall quality of patient care. Also, please note that the electronic time recorded on this note does not necessarily reflect the actual time of the patient encounter. AYAD AYALA MD Nov 30, 2018 17:58
[2018-11-30] MEDS ORDERED: ONDANSETRON 4 MG INJ IV STA (18:06)
[2018-11-30] MEDS ORDERED: morphine 2 MG INJ IV STA (18:06)
[2018-11-30] MEDS ORDERED: CEFTRIAXONE 1 GM/50 ML (PMX) 50 ML IVPB ONE (20:00)
[2018-11-30] MEDS ORDERED: FUROSEMIDE 40 MG INJ IV ONE (20:00)
[2018-11-30] MEDS ORDERED: ONDANSETRON 4 MG INJ IV PRN (21:00)
[2018-11-30] MEDS ORDERED: ZOLPIDEM 5 MG TAB PO PRN (21:00)
[2018-11-30] MEDS ORDERED: HEPARIN 5,000 UNIT/1 ML VIAL SC SCH (21:00)
[2018-11-30] MEDS ORDERED: ALBUTEROL/IPRATROPIUM (NEB) 3 ML AMP HHN PRN (21:00)
[2018-11-30] MEDS: SACUBITRIL/VALSARTAN (49mg-51mg) TABLET PO SCH (21:00)
[2018-11-30] MEDS ORDERED: NITROGLYCERIN (SL) 0.4 MG TAB SL PRN (21:00)
[2018-11-30] MEDS ORDERED: NACL 0.9% 3 ML SYG IV SCH (21:00)
[2018-11-30] MEDS ORDERED: MECL-77 PO (21:24)
[2018-11-30] MEDS ORDERED: TRAM50TA2 PO (21:24)
[2018-11-30] MEDS ORDERED: IBUP-1544 PO (21:24)
[2018-11-30] MEDS ORDERED: ESCI5TAB10 PO (21:24)
[2018-11-30] MEDS ORDERED: LORA1TAB PO (21:24)
[2018-11-30] MEDS ORDERED: DOCU100C59 PO (21:24)
[2018-11-30] MEDS ORDERED: CLOP75TA28 PO (21:24)
[2018-11-30] MEDS ORDERED: ZOLP10TA5 PO (21:24)
[2018-11-30] MEDS ORDERED: PANT40TA4 PO (21:24)
[2018-11-30] MEDS ORDERED: MEGE40TA PO (21:24)
[2018-11-30] MEDS ORDERED: ATRO INHALATION (21:24)
[2018-11-30 21:37] VITALS: Ht 160 cm; Wt 69.2 kg
[2018-11-30 21:45] VITALS: BP 103/56; PULSE 74; RESP 17
[2018-11-30] MEDS: APIXABAN 5 MG TABLET PO SCH (21:50)
[2018-11-30] MEDS: ATORVASTATIN 40 MG TAB PO SCH (21:50)
--- NOTE | 2018-11-30 22:29 | HP ---
Date/Time of Note Date/Time of Note DATE: 11/30/18 TIME: 22:29 Assessment/Plan VTE Prophylaxis Pharmacological prophylaxis: heparin Lines/Catheters IV Catheter Type (from Nrsg): [place] Assessment/Plan Assessment/Plan 1. Acute on chronic lower back pain: On physical exam, patient appears to be throughout her back including shoulder -Obtain x-ray -Pain management -PT eval 2. Chronic atrial fibrillation: Continue Eliquis and cardiac meds 3. Ischemic cardiomyopathy with EF of 40%: Continue home meds 4. CAD with stent: Continue home meds including antiplatelet and statin 5. Possible acute on chronic CHF: Diuresis 6. Metabolic acidosis: Unknown cause -Check lactate -Repeat lab in a.m. Result Diagram: 11/30/18 1757 11/30/18 1757 Results 24hrs Laboratory Tests Test 11/30/18 17:57 11/30/18 18:34 11/30/18 19:01 11/30/18 19:12 White Blood Count 10.6 Red Blood Count 3.24 L Hemoglobin 9.3 L Hematocrit 28.0 L Mean Corpuscular 86.4 Volume Mean Corpuscular 28.7 L Hemoglobin Mean Corpuscular 33.2 Hemoglobin Concent Red Cell 14.6 H Distribution Width Platelet Count 283 Mean Platelet 9.8 Volume Immature 0.200 Granulocytes % Neutrophils % 72.8 Lymphocytes % 19.1 Monocytes % 6.3 Eosinophils % 1.3 Basophils % 0.3 Nucleated Red 0.0 Blood Cells % Immature 0.020 Granulocytes # Neutrophils # 7.7 H Lymphocytes # 2.0 Monocytes # 0.7 Eosinophils # 0.1 Basophils # 0.0 Nucleated Red 0.0 Blood Cells # Sodium Level 139 Potassium Level 3.7 Chloride Level 112 H Carbon Dioxide 16 L Level Anion Gap 11 Blood Urea 8 Nitrogen Creatinine 0.81 Est Glomerular Filtrat Rate mL/min Glucose Level 99 Calcium Level 9.1 Total Bilirubin 0.9 Direct Bilirubin 0.00 Indirect Bilirubin 0.9 Aspartate Amino 17 Transf (AST/SGOT) Alanine 26 Aminotransferase ( ALT/SGPT) Alkaline 59 Phosphatase Troponin I < 0.012 B-Type Natriuretic 4410 H Peptide Total Protein 6.4 Albumin 3.3 Globulin 3.10 Albumin/Globulin 1.06 Ratio Lipase 93 Bedside Glucose 96 Urine Color YELLOW Urine Clarity CLOUDY A Urine pH 7.0 Urine Specific 1.006 [place] Urine Ketones TRACE A Urine Nitrite NEGATIVE Urine Bilirubin NEGATIVE Urine Urobilinogen NEGATIVE Urine Leukocyte 2+ H Esterase Urine Microscopic 2 RBC Urine Microscopic 3 WBC Urine Squamous MODERATE Epithelial Cells Urine Bacteria FEW A Urine Hemoglobin 1+ H Urine Glucose NEGATIVE Urine Total NEGATIVE Protein Bedside Urine pH 7.0 (LAB) Bedside Urine 1+ H Protein (LAB) Bedside Urine Negative Glucose (UA) Bedside Urine Trace H Ketones (LAB) Bedside Urine Trace-intact H Blood Bedside Urine Negative Nitrite (LAB) Bedside Urine 2+ H Leukocyte Esterase (L HPI/ROS Admit Date/Time Admit Date/Time Nov 30, 2018 at 20:02 Hx of Present Illness Patient is an 83-year-old female with history of CAD with stents, ischemic cardiomyopathy with EF of 40%, chronic atrial fibrillation, dyslipidemia, lower back pain, from disc disease. Patient presented to ER complaining of lower back pain. Seems like she has chronic pain worsening recently. Denied bladder or bowel incontinence. Denied recent trauma. On physical exam however, patient seems to have pain both in her upper and lower back including on her shoulders. Patient also has left foot callus/wound on physical exam When presented to the ER, bicarb was 16. UA without definitive UTI. PMH/Family/Social Past Medical History Past Surgical Hx: other (see HPI) Family History Significant Family History: no pertinent family hx Social History Alcohol Use: none Smoking Status: Never smoker Drug Use: none Exam Constitutional: No acute distress Head: normocephalic, atraumatic Eyes: EOMI, PERRL Respiratory: no distress Cardiovascular: regular rate and rhythm Gastrointestinal: soft Extremities: normal pulses Medications Current Medications IV Flush (NS 3 ml) 3 ml PER PROTOCOL IV ; Start 11/30/18 at 21:00 Ondansetron HCl (Zofran Inj) 4 mg Q6H PRN IV NAUSEA/VOMITING; Start 11/30/18 at 21:00 Nitroglycerin (Nitroglycerin (Sl Tab) 0.4 Mg) 1 tab Q5M PRN SL .CHEST PAIN; Start 11/30/18 at 21:00 Acetaminophen (Tylenol Tab) 650 mg Q6H PRN PO .PAIN 1-3 OR TEMP; Start 11/30/18 at 21:00 Albuterol/ Ipratropium (Duoneb) 3 ml Q2H RESP THERAPY PRN HHN SHORTNESS OF BREATH; Start 11/30/18 at 21:00 Apixaban (Eliquis) 2.5 mg BID PO Last administered on 11/30/18at 21:50; Admin Dose 2.5 MG; Start 11/30/18 at 21:00 Atorvastatin Calcium (Lipitor) 40 mg QHS PO Last administered on 11/30/18at 21:50; Admin Dose 40 MG; Start 11/30/18 at 21:00 Carvedilol (Coreg) 6.25 mg BID PO ; Start 11/30/18 at 21:00 Clopidogrel Bisulfate (plaVIX) 75 mg DAILY PO ; Start 12/01/18 at 09:00 Furosemide (Lasix) 40 mg DAILY PO ; Start 12/01/18 at 09:00 Sacubitril/ Valsartan (Entresto 49 Mg-51 Mg) 1 tab BID PO ; Start 11/30/18 at 21:00 Zolpidem Tartrate (Ambien) 5 mg QHS PRN PO NEEDED; Start 11/30/18 at 21:00 Coded Allergies: No Known Allergy (Unverified , 11/30/18) Past Surgical History Past Surgical Hx: no surgical history, other Family History Significant Family History: no pertinent family hx Social History Smoking Status: Never smoker Exam/Review of Systems Vital Signs Vitals Vital Signs Date Temp Pulse Resp B/P (MAP) Pulse Ox O2 O2 Flow FiO2 Time Delivery Rate 11/30/18 98.3 74 17 103/56 98 21:45 (72) 11/30/18 Room Air 21:05 LAWRENCE FERNANDEZ MD Nov 30, 2018 22:29
[2018-11-30 23:01] VITALS: BP 126/59; PULSE 72; RESP 17
[2018-12-01 03:13] VITALS: BP 117/62; PULSE 95; RESP 18
[2018-12-01 07:11] VITALS: BP 156/67; PULSE 87; RESP 17
[2018-12-01] MEDS: APIXABAN 5 MG TABLET PO SCH ×2 (08:48→20:34)
[2018-12-01] MEDS: CLOPIDOGREL 75 MG TAB PO SCH (08:48)
[2018-12-01] MEDS: FUROSEMIDE 40 MG TAB PO SCH (08:48)
[2018-12-01] MEDS: SACUBITRIL/VALSARTAN (49mg-51mg) TABLET PO SCH ×2 (08:51→20:33)
[2018-12-01] MEDS: PANTOPRAZOLE (EC) 40 MG TAB PO SCH (09:00)
[2018-12-01] MEDS: ACETAMINOPHEN 325 MG TAB PO PRN (09:17)
[2018-12-01 11:18] VITALS: BP 101/52; PULSE 77; RESP 18
[2018-12-01] MEDS ORDERED: ESCITALOPRAM 10 MG TAB PO SCH (11:30)
[2018-12-01] MEDS ORDERED: HYDROCODONE/APAP (5/325) TAB PO PRN (11:30)
--- NOTE | 2018-12-01 11:35 | PN ---
Date/Time of Note Date/Time of Note DATE: 12/01/18 TIME: 11:35 Objective Vitals Vital Signs Date Temp Pulse Resp B/P (MAP) Pulse Ox O2 O2 Flow FiO2 Time Delivery Rate 12/01/18 98.0 87 17 156/67 97 07:11 (96) 12/01/18 Room Air 03:13 Results Result Diagram: 12/01/18 0839 12/01/18 0839 Medications Medications Current Medications IV Flush (NS 3 ml) 3 ml PER PROTOCOL IV ; Start 11/30/18 at 21:00 Ondansetron HCl (Zofran Inj) 4 mg Q6H PRN IV NAUSEA/VOMITING Last administered on 12/01/18at 06:22; Admin Dose 4 MG; Start 11/30/18 at 21:00 Nitroglycerin (Nitroglycerin (Sl Tab) 0.4 Mg) 1 tab Q5M PRN SL .CHEST PAIN; Start 11/30/18 at 21:00 Acetaminophen (Tylenol Tab) 650 mg Q6H PRN PO .PAIN 1-3 OR TEMP Last administered on 12/01/18at 09:17; Admin Dose 650 MG; Start 11/30/18 at 21:00 Albuterol/ Ipratropium (Duoneb) 3 ml Q2H RESP THERAPY PRN HHN SHORTNESS OF BREATH; Start 11/30/18 at 21:00 Apixaban (Eliquis) 2.5 mg BID PO Last administered on 12/01/18at 08:48; Admin Dose 2.5 MG; Start 11/30/18 at 21:00 Atorvastatin Calcium (Lipitor) 40 mg QHS PO Last administered on 11/30/18at 21:50; Admin Dose 40 MG; Start 11/30/18 at 21:00 Carvedilol (Coreg) 6.25 mg BID PO Last administered on 12/01/18 08:51; Admin Dose 6.25 MG; Start 11/30/18 at 21:00 Clopidogrel Bisulfate (plaVIX) 75 mg DAILY PO Last administered on 12/01/18at 08:48; Admin Dose 75 MG; Start 12/01/18 at 09:00 Furosemide (Lasix) 40 mg DAILY PO Last administered on 12/01/18at 08:48; Admin Dose 40 MG; Start 12/01/18 at 09:00 Sacubitril/ Valsartan (Entresto 49 Mg-51 Mg) 1 tab BID PO Last administered on 12/01/18at 08:51; Admin Dose 1 TAB; Start 11/30/18 at 21:00 Zolpidem Tartrate (Ambien) 5 mg QHS PRN PO NEEDED; Start 11/30/18 at 21:00 Pantoprazole (Protonix Tab) 40 mg DAILY PO ; Start 12/01/18 at 09:00 Ceftriaxone Sodium 50 ml @ 100 mls/hr Q24H IVPB ; Start 12/01/18 at 21:00; Status UNV VTE Prophylaxis Risk score (from [facility])>0 risk: 6 SCD applied (from [facility]): Yes Lines/Catheters IV Catheter Type: Breaux in Place: No Assessment/Plan Hospital Course Subjective Patient still complaining of back pain otherwise is doing okay Objective Physical exam General: Patient is laying in bed and answers questions appropriately Mentation: Patient is alert and oriented 4, Head: Normocephalic atraumatic Eyes: EOMI, pupils reactive to light Neck: Supple, nontender, midline Respiratory: Clear to auscultation bilaterally Cardiovascular: regular rate, no obvious murmurs Gastrointestinal: non-tender to palpation, bowel sounds heard. Neurological: Moves all extremities spontaneously Musculoskeletal: Pinpoint and generalized mid to lower back pain Assessment and plan Acute on chronic back pain -On further examination with [place]ian speaking hand blocker, appears this back pain is an exact exacerbation of her chronic back pain she has been dealing with for many months to years. -Recently got a steroid injection a few months ago -After speaking with family patient has been chronically more more debilitated as the months have been going on, originally was using a cane and now uses a walker and eventually now barely wants to move after her recent multiple hospitalizations -patient refusing MRI as she does not want to stay there for more than 30 minutes, patient okay with CT scan, CT pending -Patient does not do well with [place], tramadol and naproxen only per family members Shortness of breath -Patient has been noncompliant with her medications as she did not want to take her Lasix due to her having to go to the bathroom which would exacerbate her back pain -Patient will take her Lasix here as she has a bedpan -cardiology consulted due to history of coronary artery disease with 2 stents Coronary artery disease -Continue home meds -Cardiology consulted Systolic congestive heart failure, possible acute mild exacerbation -BNP elevated -Cardiology on board -Lasix per cardiology Leukocytosis -Unknown etiology -Urinalysis is not extremely positive and it is a dirty catch, patient recently treated for urinary tract infection admission his hospital -We will treat empirically with antibiotics, panculture Disposition -Follow-up with CT scan and cultures JENNIFER SANCHEZ Dec 01, 2018 11:35
[2018-12-01] MEDS ORDERED: hydrALAzine 20 MG INJ IV PRN (12:30)
[2018-12-01] MEDS: CEFEPIME 1GM/50 ML (PMX) 50 ML IVPB SCH ×2 (13:35→20:34)
[2018-12-01 15:08] VITALS: BP 126/81; PULSE 85; RESP 20
[2018-12-01] MEDS: LORAZEPAM 1 MG TAB PO PRN ×2 (15:12→21:53)
--- NOTE | 2018-12-01 15:41 | PSY ---
Date/Time of Note Date/Time of Note DATE: 12/01/18 TIME: 15:37 Psychiatric Subjective Eval Consent Pt consented to telemedicine: No Subjective Evaluation Patient location: inpatient Chief Complaint: BACK PAIN AND BURNING OF THE BODY History of present illness Patient is an 83-year-old female with underlying medical history of CAD , chronic atrial fibrillation and dyslipidemia, admitted for lower back pain. On a [id number] evaluation, patient is Italian speaking only, by staff trainer. Patient states she is increasingly depressed because of her chronic pain she has passive suicidal thoughts however she states she would never kill has self but would be happy if she . States she will never take her own life and she has reasons to leave, however she is very frustrated because of the chronic pain and feeling of hopelessness, granddaughter states she has been neurotic at home, that she was unable to elaborate further. Discussed risk and benefits of Cymbalta with patient and granddaughter present and patient approved she will take the medication. Past psychiatric history Denies Hospitalization: other Medical history Problems Medical Problems: (1) Acute anxiety Status: Acute (2) Acute UTI Status: Acute (3) Back pain Status: Acute (4) Chest pain Status: Acute (5) Chest pain Status: Acute (6) Chest pain Status: Acute (7) Chest wall pain Status: Acute (8) CHF (congestive heart failure) Status: Acute (9) Congenital pectus carinatum Status: Acute (10) Generalized weakness Status: Acute (11) Hypoxia Status: Acute (12) Leukocytosis, unspecified Status: Acute (13) Pyelonephritis Status: Acute (14) Respiratory failure Status: Acute (15) Shortness of breath Status: Acute (16) Shortness of breath Status: Acute (17) ST elevation myocardial infarction (STEMI) Status: Acute Allergies: Coded Allergies: No Known Allergy (Unverified , 11/30/18) Substance Abuse Substance abuse history: No Prior substance abuse treatmen: No Social History Marital status: other DPA/Conservatorship: No Psychiatric Objective Eval Review of Systems: Review of Systems: Not Applicable Physical Examination: Physical Examination: Not Applicable Sleep: Adequate Energy: Decreased Interest: Decreased Mental Status Examination: Appearance: Disheveled Eye Contact: Poor Psychomotor Activity: Slow Behavior: Cooperative, Suspicious Speech: Clear, Soft AFFECT: Flat Mood: Depressed Though Process: Linear Thought Content: Normal Orientation: x3 Cognition: Alert Insight: Moderate Judgement: Moderate Attention Span: Distractible Laboratory Results Laboratory Tests Test 11/30/18 17:57 11/30/18 18:34 11/30/18 19:01 11/30/18 19:12 White Blood Count 10.6 10^3/ul Red Blood Count 3.24 10^6/ul Hemoglobin 9.3 g/dl Hematocrit 28.0 % Mean Corpuscular 86.4 fl Volume Mean Corpuscular 28.7 pg Hemoglobin Mean Corpuscular 33.2 g/dl Hemoglobin Concen t Red Cell 14.6 % Distribution Width Platelet Count 283 10^3/UL Mean Platelet 9.8 fl Volume Immature 0.200 % Granulocytes % Neutrophils % 72.8 % Lymphocytes % 19.1 % Monocytes % 6.3 % Eosinophils % 1.3 % Basophils % 0.3 % Nucleated Red 0.0 /100WBC Blood Cells % Immature 0.020 10^3/ul Granulocytes # Neutrophils # 7.7 10^3/ul Lymphocytes # 2.0 10^3/ul Monocytes # 0.7 10^3/ul Eosinophils # 0.1 10^3/ul Basophils # 0.0 10^3/ul Nucleated Red 0.0 10^3/ul Blood Cells # Sodium Level 139 mmol/L Potassium Level 3.7 mmol/L Chloride Level 112 mmol/L Carbon Dioxide 16 mmol/L Level Anion Gap 11 Blood Urea 8 mg/dl Nitrogen Creatinine 0.81 mg/dl Est Glomerular mL/min Filtrat Rate mL/min Glucose Level 99 mg/dl Calcium Level 9.1 mg/dl Total Bilirubin 0.9 mg/dl Direct Bilirubin 0.00 mg/dl Indirect 0.9 mg/dl Bilirubin Aspartate Amino 17 IU/L Transf (AST/SGOT) Alanine 26 IU/L Aminotransferase (ALT/SGPT) Alkaline 59 IU/L Phosphatase Troponin I < 0.012 ng/ml B-Type 4410 PG/ML Natriuretic Peptide Total Protein 6.4 g/dl Albumin 3.3 g/dl Globulin 3.10 g/dl Albumin/Globulin 1.06 Ratio Lipase 93 U/L Bedside Glucose 96 mg/dL Urine Color YELLOW Urine Clarity CLOUDY Urine pH 7.0 Urine Specific 1.006 [place] Urine Ketones TRACE mg/dL Urine Nitrite NEGATIVE mg/dL Urine Bilirubin NEGATIVE mg/dL Urine NEGATIVE mg/dL Urobilinogen Urine Leukocyte 2+ Navya/ul Esterase Urine Microscopic 2 /HPF RBC Urine Microscopic 3 /HPF WBC Urine Squamous MODERATE /HPF Epithelial Cells Urine Bacteria FEW /HPF Urine Hemoglobin 1+ mg/dL Urine Glucose NEGATIVE mg/dL Urine Total NEGATIVE mg/dl Protein Bedside Urine pH 7.0 (LAB) Bedside Urine 1+ Protein (LAB) Bedside Urine Negative Glucose (UA) Bedside Urine Trace Ketones (LAB) Bedside Urine Trace-intact Blood Bedside Urine Negative Nitrite (LAB) Bedside Urine 2+ Leukocyte Esteras e (L Test 12/01/18 08:39 12/01/18 10:03 White Blood Count 15.7 10^3/ul Red Blood Count 3.75 10^6/ul Hemoglobin 10.8 g/dl Hematocrit 32.6 % Mean Corpuscular 86.9 fl Volume Mean Corpuscular 28.8 pg Hemoglobin Mean Corpuscular 33.1 g/dl Hemoglobin Concen t Red Cell 14.9 % Distribution Width Platelet Count 311 10^3/UL Mean Platelet 9.8 fl Volume Immature 0.400 % Granulocytes % Neutrophils % 83.3 % Lymphocytes % 10.2 % Monocytes % 4.8 % Eosinophils % 1.0 % Basophils % 0.3 % Nucleated Red 0.0 /100WBC Blood Cells % Immature 0.070 10^3/ul Granulocytes # Neutrophils # 13.1 10^3/ul Lymphocytes # 1.6 10^3/ul Monocytes # 0.8 10^3/ul Eosinophils # 0.2 10^3/ul Basophils # 0.1 10^3/ul Nucleated Red 0.0 10^3/ul Blood Cells # Sodium Level 141 mmol/L Potassium Level 3.6 mmol/L Chloride Level 110 mmol/L Carbon Dioxide 21 mmol/L Level Anion Gap 10 Blood Urea 8 mg/dl Nitrogen Creatinine 0.97 mg/dl Est Glomerular mL/min Filtrat Rate mL/min Glucose Level 123 mg/dl Calcium Level 9.1 mg/dl Magnesium Level 1.7 mg/dl Total Bilirubin 1.0 mg/dl Direct Bilirubin 0.00 mg/dl Indirect 1.0 mg/dl Bilirubin Aspartate Amino 17 IU/L Transf (AST/SGOT) Alanine 24 IU/L Aminotransferase (ALT/SGPT) Alkaline 71 IU/L Phosphatase Total Protein 7.0 g/dl Albumin 3.7 g/dl Globulin 3.30 g/dl Albumin/Globulin 1.12 Ratio Lactic Acid Level 1.2 mmol/L Assessment and Plan Assessment/Diagnosis Diagnosis Major Depressive disorder Recommendation/Plan Medication Management Cymbalta 30mg bid Discharge Disposition: Other (Other) Legal Status: Voluntary DANIKA JACOBSEN NP Dec 01, 2018 15:41
--- NOTE | 2018-12-01 19:00 | CONS ---
Assessment/Plan Assessment/Plan Hospital Course (Demo Recall) 83 yo with known LV dysfunction with no evidence of acute heart failure or acute coronary syndrome, main complaint is low back pain. Impression: Low back pain Chronic systolic and diastolic heart failure, ischemic cardiomyopathy coronary artery disease with h/o [place], stent Paroxysmal afib, now in NSR Recommendation: Continue home medications for cardiomyopathy - carvedilol, Entresto Continue CAD meds - asa, clopidogrel, statin Evaluate for back pain No acute cardiac issues Case d/w Dr. 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 She was admitted one month ago, at that time cardiac status was stable. At present, son at bedside who interprets, patient complains of back pain, has a little bit of shortness of breath, nothing out of the ordinary, no chest pain. She follows with Dr. Flakito Bearden. Per notes patient was agitated at home, and was seen by psych telehealth. Constitutional: no complaints Eyes: no complaints ENT: no complaints Respiratory: shortness of breath Cardiovascular: no complaints; No chest pain Gastrointestinal: no complaints Genitourinary: no complaints Musculoskeletal: back pain Skin: no complaints Neurologic: no complaints Endocrine: no complaints Lymphatic: no complaints Psychological: no complaints Immunologic: no complaints Past Medical History Medical History: congestive heart failure, coronary artery disease, high cholesterol, hypertension, other (paroxysmal atrial fib) Home Meds Reported Medications Escitalopram Oxalate* (Escitalopram Oxalate*) 5 Mg Tablet, 5 MG PO DAILY for 30 Days, #30 take 1 tablet by mouth once daily 11/30/18 Lorazepam* (Lorazepam*) 1 Mg Tablet, 1 MG PO BID PRN for ANXIETY, #30 TAB 11/30/18 Tramadol HCl (Tramadol HCl) 50 Mg Tablet, 50 MG PO QHS for 30 Days, #30 11/30/18 Ibuprofen* (Ibuprofen*) 800 Mg Tablet, 800 MG PO Q6H PRN for PAIN LEVEL 6-10 11/30/18 Meclizine Hcl* (Meclizine Hcl*) 25 Mg Tablet, 25 MG PO DAILY for 30 Days, #30 11/30/18 Clopidogrel Bisulfate (Clopidogrel) 75 Mg Tablet, 75 MG PO DAILY for 30 Days, #30 11/30/18 Pantoprazole* (Pantoprazole*) 40 Mg Tablet.dr, 40 MG PO DAILY for 30 Days, #30 11/30/18 Docusate Sodium (Col-Rite) 100 Mg Capsule, 100 MG PO Q12 for 30 Days, #60 take 1 capsule by mouth every 12 hours if needed for constipation; 11/30/18 Ipratropium [place]* (Atrovent HFA*) 12.9 Gm Aer.w.adap, 2 PUFF INHALATION Q4H for SHORTNESS OF BREATH, #1 INHALER 11/30/18 Megestrol Acetate* (Megace*) 40 Mg Tab, 40 MG PO BID for 30 Days, #60 11/30/18 Zolpidem Tartrate* (Zolpidem Tartrate*) 5 Mg Tablet, 5 MG PO QHS PRN for NEEDED, #30 TAB 10/20/18 Clopidogrel Bisulfate* (Clopidogrel Bisulfate*) 75 Mg Tablet, 75 MG PO DAILY, #30 TAB 06/25/18 Furosemide* (Furosemide*) 40 Mg Tablet, 40 MG PO DAILY, TAB 06/25/18 Sacubitril/Valsartan (Entresto 49 mg-51 mg Tablet) 1 Each Tablet, 1 EACH PO BID, TAB 06/25/18 Atorvastatin* (Atorvastatin*) 40 Mg Tablet, 40 MG PO QHS, #30 TAB 06/25/18 Carvedilol* (Carvedilol*) 6.25 Mg Tablet, 6.25 MG PO BID, #60 TAB 06/25/18 Apixaban* (Eliquis*) 2.5 Mg Tablet, 2.5 MG PO BID, TAB 06/25/18 Discontinued Reported Medications Zolpidem Tartrate* (Zolpidem Tartrate*) 10 Mg Tablet, 10 MG PO DAILY for 30 Days, #30 11/30/18 Discontinued Scripts Cephalexin* (Keflex*) 500 Mg Capsule, 500 MG PO TID for 7 Days, CAP Prov:JENNIFER LOMELI MD 11/20/18 Medications Current Medications IV Flush (NS 3 ml) 3 ml PER PROTOCOL IV ; Start 11/30/18 at 21:00 Ondansetron HCl (Zofran Inj) 4 mg Q6H PRN IV NAUSEA/VOMITING Last administered on 12/01/18 06:22; Admin Dose 4 MG; Start 11/30/18 at 21:00 Nitroglycerin (Nitroglycerin (Sl Tab) 0.4 Mg) 1 tab Q5M PRN SL .CHEST PAIN; Start 11/30/18 at 21:00 Acetaminophen (Tylenol Tab) 650 mg Q6H PRN PO .PAIN 1-3 OR TEMP Last administered on 12/01/18 09:17; Admin Dose 650 MG; Start 11/30/18 at 21:00 Albuterol/ Ipratropium (Duoneb) 3 ml Q2H RESP THERAPY PRN HHN SHORTNESS OF BREATH; Start 11/30/18 at 21:00 Apixaban (Eliquis) 2.5 mg BID PO Last administered on 12/01/18 08:48; Admin Dose 2.5 MG; Start 11/30/18 at 21:00 Atorvastatin Calcium (Lipitor) 40 mg QHS PO Last administered on 11/30/18 21:50; Admin Dose 40 MG; Start 11/30/18 at 21:00 Carvedilol (Coreg) 6.25 mg BID PO Last administered on 12/01/18 08:51; Admin Dose 6.25 MG; Start 11/30/18 at 21:00 Clopidogrel Bisulfate (plaVIX) 75 mg DAILY PO Last administered on 12/01/18 08:48; Admin Dose 75 MG; Start 12/01/18 at 09:00 Furosemide (Lasix) 40 mg DAILY PO Last administered on 12/01/18 08:48; Admin Dose 40 MG; Start 12/01/18 at 09:00 Sacubitril/ Valsartan (Entresto 49 Mg-51 Mg) 1 tab BID PO Last administered on 12/01/18 08:51; Admin Dose 1 TAB; Start 11/30/18 at 21:00 Pantoprazole (Protonix Tab) 40 mg DAILY PO ; Start 12/01/18 at 09:00 Docusate Sodium (Colace) 100 mg BID PO ; Start 12/01/18 at 21:00 Tramadol HCl (Ultram) 50 mg Q6H PRN PO MODERATE PAIN LEVEL 4-6; Start 12/01/18 at 11:30 Lorazepam (Ativan) 1 mg BID PRN PO ANXIETY Last administered on 12/01/18at 15:12; Admin Dose 1 MG; Start 12/01/18 at 11:30 Cefepime HCl 50 ml @ 100 mls/hr Q12 IVPB Last administered on 12/01/18at 13:35; Admin Dose 100 MLS/HR; Start 12/01/18 at 11:30 Hydralazine HCl (Apresoline) 10 mg Q4H PRN IV sbp >160; Start 12/01/18 at 12:30 Duloxetine HCl (Cymbalta) 30 mg BID PO ; Start 12/01/18 at 21:00 Allergies: Coded Allergies: No Known Allergy (Unverified , 11/30/18) Past Surgical History Past Surgical Hx: angioplasty Family History Significant Family History: no pertinent family hx Social History Smoking Status: Never smoker Exam/Review of Systems Vital Signs Vitals Vital Signs Date Temp Pulse Resp B/P (MAP) Pulse Ox O2 O2 Flow FiO2 Time Delivery Rate 12/01/18 97.3 85 20 126/81 98 Room Air 15:08 (96) Exam Constitutional: alert, oriented Psych: other (flat affect) Head: normocephalic, atraumatic Eyes: EOMI, nl lids ENMT: nl external ears & nose Neck: supple; No jvd, No bruits Respiratory: clear to auscultation Cardiovascular: regular rate and rhythm, nl pulses; No murmurs/extra sounds Gastrointestinal: nl liver, spleen, non-tender Musculoskeletal: nl extremities to inspection Extremities: No edema Neurological: nl speech Skin: nl turgor Labs Result Diagram: 12/01/18 0839 12/01/18 0839 Results 24hrs Laboratory Tests Test 11/30/18 19:01 11/30/18 19:12 12/01/18 08:39 12/01/18 10:03 Urine Color YELLOW Urine Clarity CLOUDY A Urine pH 7.0 Urine Specific 1.006 [place] Urine Ketones TRACE A Urine Nitrite NEGATIVE Urine Bilirubin NEGATIVE Urine Urobilinogen NEGATIVE Urine Leukocyte 2+ H Esterase Urine Microscopic 2 RBC Urine Microscopic 3 WBC Urine Squamous MODERATE Epithelial Cells Urine Bacteria FEW A Urine Hemoglobin 1+ H Urine Glucose NEGATIVE Urine Total NEGATIVE Protein Bedside Urine pH 7.0 (LAB) Bedside Urine 1+ H Protein (LAB) Bedside Urine Negative Glucose (UA) Bedside Urine Trace H Ketones (LAB) Bedside Urine Trace-intact H Blood Bedside Urine Negative Nitrite (LAB) Bedside Urine 2+ H Leukocyte Esterase (L White Blood Count 15.7 #H Red Blood Count 3.75 L Hemoglobin 10.8 L Hematocrit 32.6 L Mean Corpuscular 86.9 Volume Mean Corpuscular 28.8 L Hemoglobin Mean Corpuscular 33.1 Hemoglobin Concent Red Cell 14.9 H Distribution Width Platelet Count 311 Mean Platelet 9.8 Volume Immature 0.400 Granulocytes % Neutrophils % 83.3 H Lymphocytes % 10.2 L Monocytes % 4.8 Eosinophils % 1.0 Basophils % 0.3 Nucleated Red 0.0 Blood Cells % Immature 0.070 H Granulocytes # Neutrophils # 13.1 H Lymphocytes # 1.6 Monocytes # 0.8 Eosinophils # 0.2 Basophils # 0.1 Nucleated Red 0.0 Blood Cells # Sodium Level 141 Potassium Level 3.6 Chloride Level 110 Carbon Dioxide 21 Level Anion Gap 10 Blood Urea 8 Nitrogen Creatinine 0.97 Est Glomerular Filtrat Rate mL/min Glucose Level 123 Calcium Level 9.1 Magnesium Level 1.7 Total Bilirubin 1.0 Direct Bilirubin 0.00 Indirect Bilirubin 1.0 Aspartate Amino 17 Transf (AST/SGOT) Alanine 24 Aminotransferase ( ALT/SGPT) Alkaline 71 Phosphatase Total Protein 7.0 Albumin 3.7 Globulin 3.30 H Albumin/Globulin 1.12 Ratio Lactic Acid Level 1.2 Imaging Imaging EKG in ED demonstrates nsr at 70 bpm, inferior infarct, nonspecific T changes in anterior leads CXR with no evidence of heart failure, volume overload Medications Medications Current Medications IV Flush (NS 3 ml) 3 ml PER PROTOCOL IV ; Start 11/30/18 at 21:00 Ondansetron HCl (Zofran Inj) 4 mg Q6H PRN IV NAUSEA/VOMITING Last administered on 12/01/18at 06:22; Admin Dose 4 MG; Start 11/30/18 at 21:00 Nitroglycerin (Nitroglycerin (Sl Tab) 0.4 Mg) 1 tab Q5M PRN SL .CHEST PAIN; Start 11/30/18 at 21:00 Acetaminophen (Tylenol Tab) 650 mg Q6H PRN PO .PAIN 1-3 OR TEMP Last administered on 12/01/18 09:17; Admin Dose 650 MG; Start 11/30/18 at 21:00 Albuterol/ Ipratropium (Duoneb) 3 ml Q2H RESP THERAPY PRN HHN SHORTNESS OF BREATH; Start 11/30/18 at 21:00 Apixaban (Eliquis) 2.5 mg BID PO Last administered on 12/01/18 08:48; Admin Dose 2.5 MG; Start 11/30/18 at 21:00 Atorvastatin Calcium (Lipitor) 40 mg QHS PO Last administered on 11/30/18 21:50; Admin Dose 40 MG; Start 11/30/18 at 21:00 Carvedilol (Coreg) 6.25 mg BID PO Last administered on 12/01/18 08:51; Admin Dose 6.25 MG; Start 11/30/18 at 21:00 Clopidogrel Bisulfate (plaVIX) 75 mg DAILY PO Last administered on 12/01/18 08:48; Admin Dose 75 MG; Start 12/01/18 at 09:00 Furosemide (Lasix) 40 mg DAILY PO Last administered on 12/01/18 08:48; Admin Dose 40 MG; Start 12/01/18 at 09:00 Sacubitril/ Valsartan (Entresto 49 Mg-51 Mg) 1 tab BID PO Last administered on 12/01/18 08:51; Admin Dose 1 TAB; Start 11/30/18 at 21:00 Pantoprazole (Protonix Tab) 40 mg DAILY PO ; Start 12/01/18 at 09:00 Docusate Sodium (Colace) 100 mg BID PO ; Start 12/01/18 at 21:00 Tramadol HCl (Ultram) 50 mg Q6H PRN PO MODERATE PAIN LEVEL 4-6; Start 12/01/18 at 11:30 Lorazepam (Ativan) 1 mg BID PRN PO ANXIETY Last administered on 12/01/18 15:12; Admin Dose 1 MG; Start 12/01/18 at 11:30 Cefepime HCl 50 ml @ 100 mls/hr Q12 IVPB Last administered on 12/01/18 13:35; Admin Dose 100 MLS/HR; Start 12/01/18 at 11:30 Hydralazine HCl (Apresoline) 10 mg Q4H PRN IV sbp >160; Start 12/01/18 at 12:30 Duloxetine HCl (Cymbalta) 30 mg BID PO ; Start 12/01/18 at 21:00 TEODORA BISHOP Dec 01, 2018 19:00
[2018-12-01] MEDS: traMADol 50 MG TAB PO PRN (19:25)
[2018-12-01 19:31] VITALS: BP 125/71; PULSE 94; RESP 19
[2018-12-01] MEDS: DULOXETINE 30 MG CAP DR PO SCH (20:33)
[2018-12-01] MEDS: ATORVASTATIN 40 MG TAB PO SCH (20:33)
[2018-12-01] MEDS: DOCUSATE SODIUM 100 MG CAP PO SCH (20:33)
[2018-12-01] MEDS ORDERED: CEFTRIAXONE 1 GM/50 ML (PMX) 50 ML IVPB SCH (21:00)
[2018-12-01] MEDS ORDERED: NAPROXEN 250 MG TAB PO SCH (21:00)
[2018-12-01] MEDS ORDERED: CEFEPIME 1GM/50 ML (PMX) 50 ML IVPB SCH (21:00)
[2018-12-01 23:39] VITALS: BP 102/54; PULSE 90; RESP 18
[2018-12-02] VITALS (8 sets, daily range): BP systolic 72–104; BP diastolic 39–65; PULSE 93–99; RESP 16–18
[2018-12-02] MEDS: PANTOPRAZOLE (EC) 40 MG TAB PO SCH (08:31)
[2018-12-02] MEDS: APIXABAN 5 MG TABLET PO SCH ×2 (08:31→20:26)
[2018-12-02] MEDS: DOCUSATE SODIUM 100 MG CAP PO SCH ×2 (08:31→20:26)
[2018-12-02] MEDS: CEFEPIME 1GM/50 ML (PMX) 50 ML IVPB SCH ×2 (08:31→20:27)
[2018-12-02] MEDS: FUROSEMIDE 40 MG TAB PO SCH (08:32)
[2018-12-02] MEDS: SACUBITRIL/VALSARTAN (49mg-51mg) TABLET PO SCH ×2 (08:32→21:00)
[2018-12-02] MEDS: DULOXETINE 30 MG CAP DR PO SCH ×2 (08:33→20:26)
[2018-12-02] MEDS: CLOPIDOGREL 75 MG TAB PO SCH (08:33)
[2018-12-02] MEDS: LORAZEPAM 1 MG TAB PO PRN (09:31)
--- NOTE | 2018-12-02 13:39 | PN ---
Date/Time of Note Date/Time of Note DATE: 12/02/18 TIME: 13:35 Subjective Chart was reviewed. Reports severe low back pain with difficulty ambulating. Pain radiates down both legs Objective Vitals Vital Signs Date Temp Pulse Resp B/P (MAP) Pulse Ox O2 O2 Flow FiO2 Time Delivery Rate 12/02/18 98.5 16 95/49 (64) 91 11:21 12/02/18 93 07:31 12/02/18 Room Air 04:36 Clear to auscultation bilaterally Regular rate and rhythm Soft nontender nondistended normoactive bowel sounds Back with lumbar tenderness to palpation Neurological nonfocal. Patient is able to raise bilateral lower extremities Results Result Diagram: 12/01/1883812/01/18 0839 Medications Medications Current Medications IV Flush (NS 3 ml) 3 ml PER PROTOCOL IV ; Start 11/30/18 at 21:00 Ondansetron HCl (Zofran Inj) 4 mg Q6H PRN IV NAUSEA/VOMITING Last administered on 12/01/18at 06:22; Admin Dose 4 MG; Start 11/30/18 at 21:00 Nitroglycerin (Nitroglycerin (Sl Tab) 0.4 Mg) 1 tab Q5M PRN SL .CHEST PAIN; Start 11/30/18 at 21:00 Acetaminophen (Tylenol Tab) 650 mg Q6H PRN PO .PAIN 1-3 OR TEMP Last administered on 12/01/18at 09:17; Admin Dose 650 MG; Start 11/30/18 at 21:00 Albuterol/ Ipratropium (Duoneb) 3 ml Q2H RESP THERAPY PRN HHN SHORTNESS OF BREATH; Start 11/30/18 at 21:00 Apixaban (Eliquis) 2.5 mg BID PO Last administered on 12/02/18at 08:31; Admin Dose 2.5 MG; Start 11/30/18 at 21:00 Atorvastatin Calcium (Lipitor) 40 mg QHS PO Last administered on 12/01/18at 20:33; Admin Dose 40 MG; Start 11/30/18 at 21:00 Carvedilol (Coreg) 6.25 mg BID PO Last administered on 12/02/18at 08:33; Admin Dose 6.25 MG; Start 11/30/18 at 21:00 Clopidogrel Bisulfate (plaVIX) 75 mg DAILY PO Last administered on 12/02/18 08:33; Admin Dose 75 MG; Start 12/01/18 at 09:00 Furosemide (Lasix) 40 mg DAILY PO Last administered on 12/02/18 08:32; Admin Dose 40 MG; Start 12/01/18 at 09:00 Sacubitril/ Valsartan (Entresto 49 Mg-51 Mg) 1 tab BID PO Last administered on 12/02/18 08:32; Admin Dose 1 TAB; Start 11/30/18 at 21:00 Pantoprazole (Protonix Tab) 40 mg DAILY PO Last administered on 12/02/18 08:31; Admin Dose 40 MG; Start 12/01/18 at 09:00 Docusate Sodium (Colace) 100 mg BID PO Last administered on 12/02/18 08:31; Admin Dose 100 MG; Start 12/01/18 at 21:00 Tramadol HCl (Ultram) 50 mg Q6H PRN PO MODERATE PAIN LEVEL 4-6 Last administered on 12/01/18 19:25; Admin Dose 50 MG; Start 12/01/18 at 11:30 Lorazepam (Ativan) 1 mg BID PRN PO ANXIETY Last administered on 12/02/18 09:31; Admin Dose 1 MG; Start 12/01/18 at 11:30 Cefepime HCl 50 ml @ 100 mls/hr Q12 IVPB Last administered on 12/02/18 08:31; Admin Dose 100 MLS/HR; Start 12/01/18 at 11:30 Hydralazine HCl (Apresoline) 10 mg Q4H PRN IV sbp >160; Start 12/01/18 at 12:30 Duloxetine HCl (Cymbalta) 30 mg BID PO Last administered on 12/02/18 08:33; Admin Dose 30 MG; Start 12/01/18 at 21:00 VTE Prophylaxis Risk score (from Nsg)>0 risk: 6 SCD applied (from Nsg): Yes Lines/Catheters IV Catheter Type: Saline Lock Breaux in Place: No Assessment/Plan Assessment/Plan 83-year-old female with acute on chronic low back pain L4-L5 disc protrusion with central canal stenosis Multilevel lumbar disc disease Hypertension Cardiomyopathy Systolic and diastolic congestive heart failure, compensated Continue current therapy Pain control Physical therapy Neurosurgical consultation was requested SALTY CALIXTO MD Dec 02, 2018 13:39
[2018-12-02] MEDS ORDERED: METHYLPREDNISOLONE (MEDROL) DOSE PACK PO SCH (18:00)
[2018-12-02] MEDS ORDERED: METHYLPREDNISOLONE 4 MG TAB PO SCH (18:30)
[2018-12-02] MEDS: ATORVASTATIN 40 MG TAB PO SCH (20:26)
[2018-12-02] MEDS: GABAPENTIN 300 MG CAP PO SCH (20:26)
[2018-12-02] MEDS: MEGESTROL 40 MG TAB PO SCH (20:26)
[2018-12-02] MEDS: IBUPROFEN 800 MG TAB GTB SCH ×2 (20:27→22:00)
--- NOTE | 2018-12-02 22:39 | EN ---
Date/Time of Note Date/Time of Note DATE: 12/02/18 TIME: 22:35 Event Note Medicine Medicine Event Note Called tonight about worsened hypotension. Patient is taking four medications for blood pressure, including carevedilol twice daily. Lightheaded now, with SBP of 72. No chest pain. Obtained labs showing creatuinine 1.58, K 3.4, negative troponin, CBC with WBC 13.2, Hct 33.5%, platelets 297k/ul. EKG showed normal sinus rhythm with old infarct. * BP improved now to 107/52; hold transfer to ICU * No fluid bolus in light of new admission for CHF * No indication for transfusion * Hold BP meds for SBP < 110 * Monitor pressures overnight * Recheck BMP tomorrow morning with attention to possible hypokalemia Morenita Rothman MD PhD [phone] CONSTANCE ROTHMAN M.D. Dec 02, 2018 22:39
--- NOTE | 2018-12-02 22:58 | CONS ---
Assessment/Plan Assessment/Plan Assessment/Plan (Daily) Date of consultation: 12/02/2089 Requesting physician:Dr. Edwin Beltran Consulting service: Neurosurgery This is a 83-year-old female with multiple medical problems with what appears to be chronic axial low back pain as well as chronic hip pain greater on the right than the left. The patient is overall a poor historian but with the help of one of the [place] speaking nurses, she tells me that her back pain has been present for more than a year. Over the past several months her back pain and hip pain have increased to a point where she uses a cane and even a walker and at times a wheelchair to get around due to pure pain. She denies weakness of her lower extremities. She believed to have had some "shots" to her low back in the past but cannot recall whether they were helpful to her. Based on the medical records, the patient has tried opiate medications in the past including S[place] but "has not tolerated these medications well." Neurosurgery consultation is requested for further inpatient workup. The patient underwent a CT of the lumbar spine without contrast. An MRI of the lumbar spine was also requested but the patient refused the MRI because she believed that she would have to be there for 30 minutes or longer. She denies bowel or bladder dysfunction. Past medical history: Coronary artery disease with atrial fibrillation and cardiomyopathy and systolic and diastolic dysfunction, hypertension, left eye bl indness (due to a prior injury) Allergies:No known drug allergies Review of systems: Denies chest pain, shortness of breath or heartburn. Please see above for pertinent positives and negatives. Family history: Not-Contributory Social history: Denies use of tobacco, EtOH, illicit or recreational drugs. Physical examination: This is a elderly female lying in bed. She is [place] speaking only but I am able to communicate with her with the help of an [place] speaking nurse at bedside. Patient is awake alert and oriented to person, place, the year and the month. Language is fluent. 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 Shoulder shrugs are symmetric. Muscle bulk and tone is normal bilateral upper and lower extremities. Deep tendon reflexes are 1+ bilateral upper and lower extremities. Sensation to light touch seems to be grossly present bilateral upper and lower extremities including the perineal area. Motor strength is at least 4 out of 5 bilateral upper and lower extremities. There is no Silver sign present bilaterally. There is no dysdiadochokinesia bilaterally. Toes are downgoing bilaterally. Straight leg raise bilaterally more than 30 causes no lower extremity pain. Gait testing has been deferred per patient request. THORACIC SPINE: Examination of the thoracic spine reveals no significant tenderness. LUMBOSACRAL SPINE: Examination of the lumbar spine reveals reveals mild to moderate tenderness at the lower lumbar and lumbosacral junction at midline and over the paraspinal regions greater on the right than the left. There is no significant tenderness involving the posterior superior iliac spine region bilaterally. LUMBOSACRAL SPINE ACTIVE RANGE OF MOTION: Has been deferred as the patient does not wish to stand up or ambulate at this time. Imaging: CT lumbar spine without contrast: The normal lumbar lordosis is mostly preserved. There is no gross evidence of a fracture or subluxation noted. The patient appears to have a release osteopenia if not osteoporosis of her lumbar spine. There are very advanced multilevel degenerative disc disease present throughout the patient's lumbar spine including vacuum phenomenon present at multiple disc spaces. There appears to be at least some degree of central and lateral recess stenosis at L3-4, L4-5 and L5-S1 levels with the most severe level being at L4-5 due to a combination of disc herniation and facet arthropathy and hypertrophy. However the exact degree of stenosis is difficult to tell on CT imaging alone without an MRI study. Assessment/plan: This is an elderly female with multiple medical problems with what appears to be acute on chronic axial low back pain. Based on the patient's history and clinical examination, she does not appear to have a significant radicular component to her current pain symptomatology. Although the patient does appear to have multilevel lumbar stenosis of some degree on the CT imaging, most of her symptomatology appears to be related to her axial low back pain rather than lumbar radiculopathy. There is no acute neurosurgical intervention indicated at this point. The patient has been started on Motrin, a Medrol Dosepak as well as gabapentin at my request. Physical therapy has also been requested for the patient to get her out of bed and started ambulating again. The patient can follow-up with interventional pain management on an outpatient basis to be evaluated for multilevel lumbar facet diagnostic injection and if helpful to proceed with lumbar facet rhizotomy/ablation. This type of injection is more likely to be helpful to this patient rather than epidural steroid injection given the presence of her axial low back pain in the absence of a major component of lumbar radiculopathy. LEONARDO MARIE MD Dec 02, 2018 22:58
[2018-12-03] VITALS (7 sets, daily range): BP systolic 78–114; BP diastolic 47–62; PULSE 60–99; RESP 16–17
[2018-12-03] MEDS: IBUPROFEN 800 MG TAB GTB SCH ×3 (06:02→21:03)
[2018-12-03] MEDS: METHYLPREDNISOLONE 4 MG TAB PO SCH ×3 (07:42→18:09)
[2018-12-03] MEDS: MEGESTROL 40 MG TAB PO SCH ×2 (08:11→21:02)
[2018-12-03] MEDS: CLOPIDOGREL 75 MG TAB PO SCH (08:11)
[2018-12-03] MEDS: DULOXETINE 30 MG CAP DR PO SCH ×2 (08:11→21:03)
[2018-12-03] MEDS: APIXABAN 5 MG TABLET PO SCH ×2 (08:11→21:02)
[2018-12-03] MEDS: CEFEPIME 1GM/50 ML (PMX) 50 ML IVPB SCH ×2 (08:11→21:02)
[2018-12-03] MEDS: DOCUSATE SODIUM 100 MG CAP PO SCH ×2 (08:11→21:02)
[2018-12-03] MEDS: SACUBITRIL/VALSARTAN (49mg-51mg) TABLET PO SCH ×2 (08:11→21:00)
[2018-12-03] MEDS: FUROSEMIDE 40 MG TAB PO SCH (08:11)
[2018-12-03] MEDS: GABAPENTIN 300 MG CAP PO SCH ×2 (08:11→21:02)
[2018-12-03] MEDS: PANTOPRAZOLE (EC) 40 MG TAB PO SCH (08:11)
--- NOTE | 2018-12-03 10:28 | PN ---
Date/Time of Note Date/Time of Note DATE: 12/03/18 TIME: 10:26 Subjective Resting comfortably. Pain is well controlled Objective Vitals Vital Signs Date Temp Pulse Resp B/P (MAP) Pulse Ox O2 O2 Flow FiO2 Time Delivery Rate 12/03/18 98.0 99 17 112/62 98 07:54 (79) 12/02/18 Room Air 04:36 Intake and Output 12/02/18 12/02/18 12/03/18 1515:00 23:00 07:00 IntakeIntake Total 420 ml 400 ml OutputOutput Total 350 ml BalanceBalance 70 ml 400 ml Clear to auscultation bilaterally Regular rate and rhythm Soft nontender nondistended normoactive bowel sounds No edema Nonfocal Results Result Diagram: 12/02/18204612/02/182046 Medications Medications Current Medications IV Flush (NS 3 ml) 3 ml PER PROTOCOL IV ; Start 11/30/18 at 21:00 Ondansetron HCl (Zofran Inj) 4 mg Q6H PRN IV NAUSEA/VOMITING Last administered on 12/01/18at 06:22; Admin Dose 4 MG; Start 11/30/18 at 21:00 Nitroglycerin (Nitroglycerin (Sl Tab) 0.4 Mg) 1 tab Q5M PRN SL .CHEST PAIN; Start 11/30/18 at 21:00 Acetaminophen (Tylenol Tab) 650 mg Q6H PRN PO .PAIN 1-3 OR TEMP Last administered on 12/01/18at 09:17; Admin Dose 650 MG; Start 11/30/18 at 21:00 Albuterol/ Ipratropium (Duoneb) 3 ml Q2H RESP THERAPY PRN HHN SHORTNESS OF BREATH; Start 11/30/18 at 21:00 Apixaban (Eliquis) 2.5 mg BID PO Last administered on 12/03/18at 08:11; Admin Dose 2.5 MG; Start 11/30/18 at 21:00 Atorvastatin Calcium (Lipitor) 40 mg QHS PO Last administered on 12/02/18at 20:26; Admin Dose 40 MG; Start 11/30/18 at 21:00 Carvedilol (Coreg) 6.25 mg BID PO Last administered on 12/03/18at 08:12; Admin Dose 6.25 MG; Start 11/30/18 at 21:00 Clopidogrel Bisulfate (plaVIX) 75 mg DAILY PO Last administered on 12/03/18 08:11; Admin Dose 75 MG; Start 12/01/18 at 09:00 Furosemide (Lasix) 40 mg DAILY PO Last administered on 12/03/18 08:11; Admin Dose 40 MG; Start 12/01/18 at 09:00 Sacubitril/ Valsartan (Entresto 49 Mg-51 Mg) 1 tab BID PO Last administered on 12/03/18 08:11; Admin Dose 1 TAB; Start 11/30/18 at 21:00 Pantoprazole (Protonix Tab) 40 mg DAILY PO Last administered on 12/03/18 08:11; Admin Dose 40 MG; Start 12/01/18 at 09:00 Docusate Sodium (Colace) 100 mg BID PO Last administered on 12/03/18 08:11; Admin Dose 100 MG; Start 12/01/18 at 21:00 Tramadol HCl (Ultram) 50 mg Q6H PRN PO MODERATE PAIN LEVEL 4-6 Last administered on 12/01/18 19:25; Admin Dose 50 MG; Start 12/01/18 at 11:30 Lorazepam (Ativan) 1 mg BID PRN PO ANXIETY Last administered on 12/02/18 09:31; Admin Dose 1 MG; Start 12/01/18 at 11:30 Cefepime HCl 50 ml @ 100 mls/hr Q12 IVPB Last administered on 12/03/18 08:11; Admin Dose 100 MLS/HR; Start 12/01/18 at 11:30 Hydralazine HCl (Apresoline) 10 mg Q4H PRN IV sbp >160; Start 12/01/18 at 12:30 Duloxetine HCl (Cymbalta) 30 mg BID PO Last administered on 12/03/18 08:11; Admin Dose 30 MG; Start 12/01/18 at 21:00 Megestrol Acetate (Megace) 40 mg BID PO Last administered on 12/03/18 08:11; Admin Dose 40 MG; Start 12/02/18 at 21:00 Ibuprofen (Motrin) 800 mg Q8 GTB Last administered on 12/03/18 06:02; Admin Dose 800 MG; Start 12/02/18 at 18:00 Methylprednisolone (Medrol Dose Pack) ay 1: 24 mg on day 1, administe... STD DOSE PACK PO ; Start 12/02/18 at 18:00; Stop 12/07/18 at 09:00 Gabapentin (Neurontin) 300 mg BID PO Last administered on 12/03/18at 08:11; Admin Dose 300 MG; Start 12/02/18 at 21:00 Methylprednisolone (Medrol) 4 mg AC BREAKFAST PO Last administered on 12/03/18at 07:42; Admin Dose 4 MG; Start 12/03/18 at 07:25; Stop 12/07/18 at 07:26 Methylprednisolone (Medrol) 4 mg PC LUNCH PO ; Start 12/03/18 at 12:50; Stop 12/05/18 at 12:51 Methylprednisolone (Medrol) 4 mg PC DINNER PO ; Start 12/03/18 at 18:55; Stop 12/04/18 at 18:56 Methylprednisolone (Medrol) 8 mg HS PO ; Start 12/03/18 at 21:00; Stop 12/03/18 at 21:01 Methylprednisolone (Medrol) 4 mg HS PO ; Start 12/04/18 at 21:00; Stop 12/06/18 at 21:01 VTE Prophylaxis Risk score (from Nsg)>0 risk: 5 SCD applied (from Nsg): Yes Lines/Catheters IV Catheter Type: Saline Lock Breaux in Place: No Assessment/Plan Assessment/Plan 83-year-old female with acute on chronic low back pain Coronary artery disease Congestive heart failure, compensated Acute kidney injury Chronic depression Continue current therapy Continue physical therapy Hold Lasix Monitor renal function Neurosurgical recommendations are appreciated SALTY CALIXTO MD Dec 03, 2018 10:27
[2018-12-03] MEDS ORDERED: METHYLPREDNISOLONE 4 MG TAB PO SCH (21:00)
[2018-12-03] MEDS: ATORVASTATIN 40 MG TAB PO SCH (21:02)
[2018-12-04] VITALS: BP 98/56; PULSE 86; RESP 17
[2018-12-04 04:00] VITALS: BP 97/54; PULSE 89; RESP 17
[2018-12-04] MEDS: IBUPROFEN 800 MG TAB GTB SCH (05:30)
[2018-12-04 07:57] VITALS: BP 131/58; PULSE 92; RESP 20
[2018-12-04] MEDS: METHYLPREDNISOLONE 4 MG TAB PO SCH ×4 (08:56→20:51)
[2018-12-04] MEDS: CEFEPIME 1GM/50 ML (PMX) 50 ML IVPB SCH ×2 (08:57→20:51)
[2018-12-04] MEDS: PANTOPRAZOLE (EC) 40 MG TAB PO SCH (08:57)
[2018-12-04] MEDS: DOCUSATE SODIUM 100 MG CAP PO SCH ×2 (08:57→20:51)
[2018-12-04] MEDS: CLOPIDOGREL 75 MG TAB PO SCH (08:57)
[2018-12-04] MEDS: DULOXETINE 30 MG CAP DR PO SCH ×2 (08:57→20:51)
[2018-12-04] MEDS: GABAPENTIN 300 MG CAP PO SCH ×2 (08:57→20:51)
[2018-12-04] MEDS: APIXABAN 5 MG TABLET PO SCH ×2 (08:58→20:51)
[2018-12-04] MEDS: SACUBITRIL/VALSARTAN (49mg-51mg) TABLET PO SCH ×2 (08:58→09:00)
[2018-12-04] MEDS: MEGESTROL 40 MG TAB PO SCH ×2 (08:58→20:51)
[2018-12-04] MEDS: traMADol 50 MG TAB PO PRN (09:07)
[2018-12-04 11:28] VITALS: BP 100/56; PULSE 88; RESP 20
--- NOTE | 2018-12-04 11:55 | PN ---
Date/Time of Note Date/Time of Note DATE: 12/04/18 TIME: 11:51 Subjective Doing well. Reports less low back pain. Objective Vitals Vital Signs Date Temp Pulse Resp B/P (MAP) Pulse Ox O2 O2 Flow FiO2 Time Delivery Rate 12/04/18 98.5 88 20 100/56 95 Room Air 11:28 (71) Intake and Output 12/03/18 12/03/18 12/04/18 1515:00 23:00 07:00 IntakeIntake Total 300 ml 200 ml 350 ml OutputOutput Total 200 ml 200 ml 1000 ml BalanceBalance 100 ml 0 ml -650 ml Supple Clear to auscultation bilaterally Regular rate and rhythm Soft nontender nondistended No edema Nonfocal Results Result Diagram: 12/02/18204612/04/18 1040 Medications Medications Current Medications IV Flush (NS 3 ml) 3 ml PER PROTOCOL IV ; Start 11/30/18 at 21:00 Ondansetron HCl (Zofran Inj) 4 mg Q6H PRN IV NAUSEA/VOMITING Last administered on 12/01/18at 06:22; Admin Dose 4 MG; Start 11/30/18 at 21:00 Nitroglycerin (Nitroglycerin (Sl Tab) 0.4 Mg) 1 tab Q5M PRN SL .CHEST PAIN; Start 11/30/18 at 21:00 Acetaminophen (Tylenol Tab) 650 mg Q6H PRN PO .PAIN 1-3 OR TEMP Last administered on 12/01/18at 09:17; Admin Dose 650 MG; Start 11/30/18 at 21:00 Albuterol/ Ipratropium (Duoneb) 3 ml Q2H RESP THERAPY PRN HHN SHORTNESS OF BREATH; Start 11/30/18 at 21:00 Apixaban (Eliquis) 2.5 mg BID PO Last administered on 12/04/18at 08:58; Admin Dose 2.5 MG; Start 11/30/18 at 21:00 Atorvastatin Calcium (Lipitor) 40 mg QHS PO Last administered on 12/03/18at 21:02; Admin Dose 40 MG; Start 11/30/18 at 21:00 Clopidogrel Bisulfate (plaVIX) 75 mg DAILY PO Last administered on 12/04/18at 08:57; Admin Dose 75 MG; Start 12/01/18 at 09:00 Sacubitril/ Valsartan (Entresto 49 Mg-51 Mg) 1 tab BID PO Last administered on 12/03/18 08:11; Admin Dose 1 TAB; Start 11/30/18 at 21:00 Pantoprazole (Protonix Tab) 40 mg DAILY PO Last administered on 12/04/18 08:57; Admin Dose 40 MG; Start 12/01/18 at 09:00 Docusate Sodium (Colace) 100 mg BID PO Last administered on 12/04/18 08:57; Admin Dose 100 MG; Start 12/01/18 at 21:00 Tramadol HCl (Ultram) 50 mg Q6H PRN PO MODERATE PAIN LEVEL 4-6 Last administered on 12/04/18 09:07; Admin Dose 50 MG; Start 12/01/18 at 11:30 Lorazepam (Ativan) 1 mg BID PRN PO ANXIETY Last administered on 12/02/18 09:31; Admin Dose 1 MG; Start 12/01/18 at 11:30 Cefepime HCl 50 ml @ 100 mls/hr Q12 IVPB Last administered on 12/04/18 08:57; Admin Dose 100 MLS/HR; Start 12/01/18 at 11:30 Hydralazine HCl (Apresoline) 10 mg Q4H PRN IV sbp >160; Start 12/01/18 at 12:30 Duloxetine HCl (Cymbalta) 30 mg BID PO Last administered on 12/04/18 08:57; Admin Dose 30 MG; Start 12/01/18 at 21:00 Megestrol Acetate (Megace) 40 mg BID PO Last administered on 12/04/18 08:58; Admin Dose 40 MG; Start 12/02/18 at 21:00 Ibuprofen (Motrin) 800 mg Q8 GTB Last administered on 12/04/18 05:30; Admin Dose 800 MG; Start 12/02/18 at 18:00 Methylprednisolone (Medrol Dose Pack) ay 1: 24 mg on day 1, administe... STD DOSE PACK PO ; Start 12/02/18 at 18:00; Stop 12/07/18 at 09:00 Gabapentin (Neurontin) 300 mg BID PO Last administered on 12/04/18 08:57; Admin Dose 300 MG; Start 12/02/18 at 21:00 Methylprednisolone (Medrol) 4 mg AC BREAKFAST PO Last administered on 12/04/18at 08:56; Admin Dose 4 MG; Start 12/03/18 at 07:25; Stop 12/07/18 at 07:26 Methylprednisolone (Medrol) 4 mg PC LUNCH PO Last administered on 12/03/18at 12:36; Admin Dose 4 MG; Start 12/03/18 at 12:50; Stop 12/05/18 at 12:51 Methylprednisolone (Medrol) 4 mg PC DINNER PO Last administered on 12/03/18at 18:09; Admin Dose 4 MG; Start 12/03/18 at 18:55; Stop 12/04/18 at 18:56 Methylprednisolone (Medrol) 4 mg HS PO ; Start 12/04/18 at 21:00; Stop 12/06/18 at 21:01 Sodium Chloride 1,000 ml @ 75 mls/hr [id number] ONCE IV ; Start 12/04/18 at 12:00; Stop 12/05/18 at 01:19 VTE Prophylaxis Risk score (from Nsg)>0 risk: 5 SCD applied (from Nsg): Yes Lines/Catheters IV Catheter Type: Saline Lock Breaux in Place: No Assessment/Plan Assessment/Plan 83-year-old female with acute on chronic low back pain Multilevel lumbar disc disease Acute kidney injury most likely due to episodes of hypotension Coronary artery disease Congestive heart failure, compensated Continue current therapy Hold Coreg Normal saline x1 L Monitor renal function Nephrology consultation SALTY CALIXTO MD Dec 04, 2018 11:55
[2018-12-04] MEDS ORDERED: SOD CHLORIDE 0.9% 1,000 ML IV ONE (12:00)
[2018-12-04] MEDS: ACETAMINOPHEN 325 MG TAB PO PRN (12:57)
--- NOTE | 2018-12-04 14:29 | CONS ---
Assessment/Plan Assessment/Plan Assessment/Plan Renal consult dict ARF, I agree sec to transient hypotension that responded to IV fluids on 12/02 in the setting of needed NSAIA and Entresto which I discontinued. Will follow Consultation Date/Type/Reason Admit Date/Time Nov 30, 2018 at 20:02 Type of Consult Nephrology Date/Time of Note DATE: 12/04/18 TIME: 14:27 Past Medical History Home Meds Reported Medications Escitalopram Oxalate* (Escitalopram Oxalate*) 5 Mg Tablet, 5 MG PO DAILY for 30 Days, #30 take 1 tablet by mouth once daily 11/30/18 Lorazepam* (Lorazepam*) 1 Mg Tablet, 1 MG PO BID PRN for ANXIETY, #30 TAB 11/30/18 Tramadol HCl (Tramadol HCl) 50 Mg Tablet, 50 MG PO QHS for 30 Days, #30 11/30/18 Ibuprofen* (Ibuprofen*) 800 Mg Tablet, 800 MG PO Q6H PRN for PAIN LEVEL 6-10 11/30/18 Meclizine Hcl* (Meclizine Hcl*) 25 Mg Tablet, 25 MG PO DAILY for 30 Days, #30 11/30/18 Clopidogrel Bisulfate (Clopidogrel) 75 Mg Tablet, 75 MG PO DAILY for 30 Days, #30 11/30/18 Pantoprazole* (Pantoprazole*) 40 Mg Tablet.dr, 40 MG PO DAILY for 30 Days, #30 11/30/18 Docusate Sodium (Col-Rite) 100 Mg Capsule, 100 MG PO Q12 for 30 Days, #60 take 1 capsule by mouth every 12 hours if needed for constipation; 11/30/18 Ipratropium [place]* (Atrovent HFA*) 12.9 Gm Aer.w.adap, 2 PUFF INHALATION Q4H for SHORTNESS OF BREATH, #1 INHALER 11/30/18 Megestrol Acetate* (Megace*) 40 Mg Tab, 40 MG PO BID for 30 Days, #60 11/30/18 Zolpidem Tartrate* (Zolpidem Tartrate*) 5 Mg Tablet, 5 MG PO QHS PRN for NEEDED, #30 TAB 10/20/18 Clopidogrel Bisulfate* (Clopidogrel Bisulfate*) 75 Mg Tablet, 75 MG PO DAILY, #30 TAB 06/25/18 Furosemide* (Furosemide*) 40 Mg Tablet, 40 MG PO DAILY, TAB 06/25/18 Sacubitril/Valsartan (Entresto 49 mg-51 mg Tablet) 1 Each Tablet, 1 EACH PO BID, TAB 06/25/18 Atorvastatin* (Atorvastatin*) 40 Mg Tablet, 40 MG PO QHS, #30 TAB 06/25/18 Carvedilol* (Carvedilol*) 6.25 Mg Tablet, 6.25 MG PO BID, #60 TAB 06/25/18 Apixaban* (Eliquis*) 2.5 Mg Tablet, 2.5 MG PO BID, TAB 06/25/18 Discontinued Reported Medications Zolpidem Tartrate* (Zolpidem Tartrate*) 10 Mg Tablet, 10 MG PO DAILY for 30 Days, #30 11/30/18 Discontinued Scripts Cephalexin* (Keflex*) 500 Mg Capsule, 500 MG PO TID for 7 Days, CAP Prov:JENNIFER LOMELI MD 11/20/18 Medications Current Medications IV Flush (NS 3 ml) 3 ml PER PROTOCOL IV ; Start 11/30/18 at 21:00 Ondansetron HCl (Zofran Inj) 4 mg Q6H PRN IV NAUSEA/VOMITING Last administered on 12/01/18at 06:22; Admin Dose 4 MG; Start 11/30/18 at 21:00 Nitroglycerin (Nitroglycerin (Sl Tab) 0.4 Mg) 1 tab Q5M PRN SL .CHEST PAIN; Start 11/30/18 at 21:00 Acetaminophen (Tylenol Tab) 650 mg Q6H PRN PO .PAIN 1-3 OR TEMP Last administered on 12/04/18at 12:57; Admin Dose 650 MG; Start 11/30/18 at 21:00 Albuterol/ Ipratropium (Duoneb) 3 ml Q2H RESP THERAPY PRN HHN SHORTNESS OF BREATH; Start 11/30/18 at 21:00 Apixaban (Eliquis) 2.5 mg BID PO Last administered on 12/04/18at 08:58; Admin Dose 2.5 MG; Start 11/30/18 at 21:00 Atorvastatin Calcium (Lipitor) 40 mg QHS PO Last administered on 12/03/18at 2 1:02; Admin Dose 40 MG; Start 11/30/18 at 21:00 Clopidogrel Bisulfate (plaVIX) 75 mg DAILY PO Last administered on 12/04/18 08:57; Admin Dose 75 MG; Start 12/01/18 at 09:00 Sacubitril/ Valsartan (Entresto 49 Mg-51 Mg) 1 tab BID PO Last administered on 12/03/18 08:11; Admin Dose 1 TAB; Start 11/30/18 at 21:00 Pantoprazole (Protonix Tab) 40 mg DAILY PO Last administered on 12/04/18 08:57; Admin Dose 40 MG; Start 12/01/18 at 09:00 Docusate Sodium (Colace) 100 mg BID PO Last administered on 12/04/18 08:57; Admin Dose 100 MG; Start 12/01/18 at 21:00 Tramadol HCl (Ultram) 50 mg Q6H PRN PO MODERATE PAIN LEVEL 4-6 Last administered on 12/04/18 09:07; Admin Dose 50 MG; Start 12/01/18 at 11:30 Lorazepam (Ativan) 1 mg BID PRN PO ANXIETY Last administered on 12/02/18 09:31; Admin Dose 1 MG; Start 12/01/18 at 11:30 Cefepime HCl 50 ml @ 100 mls/hr Q12 IVPB Last administered on 12/04/18 08:57; Admin Dose 100 MLS/HR; Start 12/01/18 at 11:30 Hydralazine HCl (Apresoline) 10 mg Q4H PRN IV sbp >160; Start 12/01/18 at 12:30 Duloxetine HCl (Cymbalta) 30 mg BID PO Last administered on 12/04/18 08:57; Admin Dose 30 MG; Start 12/01/18 at 21:00 Megestrol Acetate (Megace) 40 mg BID PO Last administered on 12/04/18 08:58; Admin Dose 40 MG; Start 12/02/18 at 21:00 Ibuprofen (Motrin) 800 mg Q8 GTB Last administered on 12/04/18 05:30; Admin Dose 800 MG; Start 12/02/18 at 18:00 Methylprednisolone (Medrol Dose Pack) ay 1: 24 mg on day 1, administe... STD DOSE PACK PO ; Start 12/02/18 at 18:00; Stop 12/07/18 at 09:00 Gabapentin (Neurontin) 300 mg BID PO Last administered on 12/04/18at 08:57; Admin Dose 300 MG; Start 12/02/18 at 21:00 Methylprednisolone (Medrol) 4 mg AC BREAKFAST PO Last administered on 12/04/18at 08:56; Admin Dose 4 MG; Start 12/03/18 at 07:25; Stop 12/07/18 at 07 :26 Methylprednisolone (Medrol) 4 mg PC LUNCH PO Last administered on 12/04/18at 12:57; Admin Dose 4 MG; Start 12/03/18 at 12:50; Stop 12/05/18 at 12:51 Methylprednisolone (Medrol) 4 mg PC DINNER PO Last administered on 12/03/18at 18:09; Admin Dose 4 MG; Start 12/03/18 at 18:55; Stop 12/04/18 at 18:56 Methylprednisolone (Medrol) 4 mg HS PO ; Start 12/04/18 at 21:00; Stop 12/06/18 at 21:01 Sodium Chloride 1,000 ml @ 75 mls/hr [id number] ONCE IV Last administered on 12/04/18at 12:57; Admin Dose 75 MLS/HR; Start 12/04/18 at 12:00; Stop 12/05/18 at 01:19 Allergies: Coded Allergies: No Known Allergy (Unverified , 11/30/18) Past Surgical History Past Surgical Hx: angioplasty Social History Smoking Status: Never smoker Exam/Review of Systems Vital Signs Vitals Vital Signs Date Temp Pulse Resp B/P (MAP) Pulse Ox O2 O2 Flow FiO2 Time Delivery Rate 12/04/18 98.5 88 20 100/56 95 Room Air 11:28 (71) Intake and Output 12/03/18 12/03/18 12/04/18 1515:00 23:00 07:00 IntakeIntake Total 300 ml 200 ml 350 ml OutputOutput Total 200 ml 200 ml 1000 ml BalanceBalance 100 ml 0 ml -650 ml Labs Result Diagram: 12/02/18204612/04/18 1040 Results 24hrs Laboratory Tests Test 12/04/18 10:40 Sodium Level 137 Potassium Level 3.6 Chloride Level 105 Carbon Dioxide Level 19 L Anion Gap 13 Blood Urea Nitrogen 30 #H Creatinine 1.71 H Est Glomerular Filtrat Rate mL/min Glucose Level 201 Calcium Level 8.4 Medications Medications Current Medications IV Flush (NS 3 ml) 3 ml PER PROTOCOL IV ; Start 11/30/18 at 21:00 Ondansetron HCl (Zofran Inj) 4 mg Q6H PRN IV NAUSEA/VOMITING Last administered on 12/01/18 06:22; Admin Dose 4 MG; Start 11/30/18 at 21:00 Nitroglycerin (Nitroglycerin (Sl Tab) 0.4 Mg) 1 tab Q5M PRN SL .CHEST PAIN; Start 11/30/18 at 21:00 Acetaminophen (Tylenol Tab) 650 mg Q6H PRN PO .PAIN 1-3 OR TEMP Last administered on 12/04/18 12:57; Admin Dose 650 MG; Start 11/30/18 at 21:00 Albuterol/ Ipratropium (Duoneb) 3 ml Q2H RESP THERAPY PRN HHN SHORTNESS OF BREATH; Start 11/30/18 at 21:00 Apixaban (Eliquis) 2.5 mg BID PO Last administered on 12/04/18 08:58; Admin Dose 2.5 MG; Start 11/30/18 at 21:00 Atorvastatin Calcium (Lipitor) 40 mg QHS PO Last administered on 12/03/18 21:02; Admin Dose 40 MG; Start 11/30/18 at 21:00 Clopidogrel Bisulfate (plaVIX) 75 mg DAILY PO Last administered on 12/04/18 08:57; Admin Dose 75 MG; Start 12/01/18 at 09:00 Sacubitril/ Valsartan (Entresto 49 Mg-51 Mg) 1 tab BID PO Last administered on 12/03/18 08:11; Admin Dose 1 TAB; Start 11/30/18 at 21:00 Pantoprazole (Protonix Tab) 40 mg DAILY PO Last administered on 12/04/18 08:57; Admin Dose 40 MG; Start 12/01/18 at 09:00 Docusate Sodium (Colace) 100 mg BID PO Last administered on 12/04/18 08:57; Admin Dose 100 MG; Start 12/01/18 at 21:00 Tramadol HCl (Ultram) 50 mg Q6H PRN PO MODERATE PAIN LEVEL 4-6 Last administered on 12/04/18 09:07; Admin Dose 50 MG; Start 12/01/18 at 11:30 Lorazepam (Ativan) 1 mg BID PRN PO ANXIETY Last administered on 12/02/18 09:31; Admin Dose 1 MG; Start 12/01/18 at 11:30 Cefepime HCl 50 ml @ 100 mls/hr Q12 IVPB Last administered on 12/04/18 08:57; Admin Dose 100 MLS/HR; Start 12/01/18 at 11:30 Hydralazine HCl (Apresoline) 10 mg Q4H PRN IV sbp >160; Start 12/01/18 at 12:30 Duloxetine HCl (Cymbalta) 30 mg BID PO Last administered on 12/04/18 08:57; Admin Dose 30 MG; Start 12/01/18 at 21:00 Megestrol Acetate (Megace) 40 mg BID PO Last administered on 12/04/18 08:58; Admin Dose 40 MG; Start 12/02/18 at 21:00 Ibuprofen (Motrin) 800 mg Q8 GTB Last administered on 12/04/18 05:30; Admin Dose 800 MG; Start 12/02/18 at 18:00 Methylprednisolone (Medrol Dose Pack) ay 1: 24 mg on day 1, administe... STD DOSE PACK PO ; Start 12/02/18 at 18:00; Stop 12/07/18 at 09:00 Gabapentin (Neurontin) 300 mg BID PO Last administered on 12/04/18 08:57; Admin Dose 300 MG; Start 12/02/18 at 21:00 Methylprednisolone (Medrol) 4 mg AC BREAKFAST PO Last administered on 12/04/18 08:56; Admin Dose 4 MG; Start 12/03/18 at 07:25; Stop 12/07/18 at 07:26 Methylprednisolone (Medrol) 4 mg PC LUNCH PO Last administered on 12/04/18 12:57; Admin Dose 4 MG; Start 12/03/18 at 12:50; Stop 12/05/18 at 12:51 Methylprednisolone (Medrol) 4 mg PC DINNER PO Last administered on 12/03/18 18:09; Admin Dose 4 MG; Start 12/03/18 at 18:55; Stop 12/04/18 at 18:56 Methylprednisolone (Medrol) 4 mg HS PO ; Start 12/04/18 at 21:00; Stop 12/06/18 at 21:01 Sodium Chloride 1,000 ml @ 75 mls/hr [id number] ONCE IV Last administered on 12/04/18at 12:57; Admin Dose 75 MLS/HR; Start 12/04/18 at 12:00; Stop 12/05/18 at 01:19 YANNICK GOMEZ MD Dec 04, 2018 14:29
[2018-12-04 14:55] VITALS: BP 92/55; PULSE 88; RESP 20
[2018-12-04] MEDS ORDERED: SOD CHLORIDE 0.9% 250 ML IV ONE (15:00)
--- NOTE | 2018-12-04 15:15 | CONS ---
DATE OF ADMISSION: 11/30/2018 DATE OF CONSULTATION: 12/04/2018 Thank you very much for allowing me to evaluate this 83-year-old female admitted via the ER with back pain who has now renal insufficiency. HISTORICAL EVENTS: As you well know, this patient was admitted via the ER with severe low back pain. She has a background history of ischemic cardiomyopathy, coronary artery disease, atrial fibrillati on and hyperlipidemia. Her course in the hospital included undergoing evaluation for her low back pa in, having received steroids and nonsteroidals in hopes alleviating the same. Critical review of her hospital course revealed transient hypotension on the that responded to intravenous fluids. Elham dominguez presently is comfortable without obvious tachypnea. OTHER PROBLEMS AND OTHER PAST MEDICAL HISTORY: Includes chronic atrial fibrillation. SOCIAL HISTORY: She is a nonsmoker. PRESENT MEDICATIONS: Include: 1. Cefepime. 2. Eliquis. 3. Lipitor 40 a day. 4. Coreg 6.25 b.i.d. 5. Plavix 75 mg per day. 6. Cymbalta 30 mg a day. 7. Gabapentin 300 mg b.i.d. 8. Ibuprofen 800 mg q.8. 9. Ativan as needed, 10. Megace 40 mg b.i.d. 11. Methylprednisolone. 12. Protonix. 13. Entresto. 14. Tramadol. PHYSICAL EXAMINATION: VITAL SIGNS: BP 100/56, pulse is 88. She was afebrile. Respirations were 18, room air O2 sat 95%. EYES: Extraocular muscles were full. NOSE, MOUTH, AND THROAT: Normal. NECK: Revealed no JVD. LUNGS: Clear. HEART: Rhythm irregularly irregular without third sound. ABDOMEN: Nontender. EXTREMITIES: No edema, no calf tenderness. Flanks no edema. LABORATORY AND DIAGNOSTIC STUDIES: Hematocrit 28 on 11/30, 32.6 on the , 33.5 on the . Chem istries: Creatinine 0.97 on the , 1.58 on the , 1.71 on the . Potassium was 3.6, bicarb amna ranged between 19 and 23. Electrolytes were normal. Albumin was normal. Liver tests were nor mal. Urinalysis 1+ hemoglobin, 2 red cells and 3 white cells. Urine culture revealed gram-positive organisms and Irina albicans. Chest x-ray on admission revealed no evidence of cardiopulmonary dis ease. CT spine revealed degenerative changes and disk disease. IMPRESSION: 1. Acute renal failure secondary to transient hypotension precipitating event unclear that responded to intravenous fluids in the setting of needed nonsteroidals and Entresto. Her BP now is stable. I have discontinued Entresto for the moment and nonsteroidals. Urinary sodium will be obtained to see if there is an ongoing prerenal component and bladder ultrasound to be certain there is not any sile nt unlikely obstruction. 2. Low back pain secondary to degenerative arthritis and disk disease. 3. Cardiomyopathy and known coronary artery disease. PLAN: We will follow with you. Dictated By: YANNICK GOMEZ MD MR/NTS Conf#: [id number] DID#: [id number] CC: SALTY CALIXTO MD;*EndCC*
[2018-12-04] MEDS: SOD CHLORIDE 0.9% 1,000 ML IV SCH (16:12)
[2018-12-04 19:15] VITALS: BP 118/62; PULSE 63; RESP 20
[2018-12-04] MEDS: ATORVASTATIN 40 MG TAB PO SCH (20:51)
[2018-12-05 00:05] VITALS: BP 111/53; PULSE 91; RESP 20
[2018-12-05 04:05] VITALS: BP 103/56; PULSE 94; RESP 20
[2018-12-05 07:54] VITALS: BP 127/92; PULSE 92; RESP 20
[2018-12-05] MEDS: METHYLPREDNISOLONE 4 MG TAB PO SCH ×3 (08:09→20:04)
[2018-12-05] MEDS: DULOXETINE 30 MG CAP DR PO SCH ×2 (08:09→20:04)
[2018-12-05] MEDS: GABAPENTIN 300 MG CAP PO SCH ×2 (08:10→20:04)
[2018-12-05] MEDS: MEGESTROL 40 MG TAB PO SCH ×2 (08:10→20:04)
[2018-12-05] MEDS: APIXABAN 5 MG TABLET PO SCH ×2 (08:10→20:04)
[2018-12-05] MEDS: CEFEPIME 1GM/50 ML (PMX) 50 ML IVPB SCH ×2 (08:10→20:04)
[2018-12-05] MEDS: DOCUSATE SODIUM 100 MG CAP PO SCH ×2 (08:10→20:04)
[2018-12-05] MEDS: PANTOPRAZOLE (EC) 40 MG TAB PO SCH (08:10)
[2018-12-05] MEDS: CLOPIDOGREL 75 MG TAB PO SCH (08:10)
[2018-12-05] MEDS: SOD CHLORIDE 0.9% 1,000 ML IV SCH (10:47)
[2018-12-05 11:01] VITALS: BP 109/56; PULSE 95; RESP 20
--- NOTE | 2018-12-05 13:24 | PN ---
Date/Time of Note Date/Time of Note DATE: 12/05/18 TIME: 13:23 Assessment/Plan VTE Prophylaxis Risk score (from Ns)>0 risk: 5 SCD applied (from Ns): Yes Pharmacological prophylaxis: apixaban Lines/Catheters IV Catheter Type (from Nrs): Saline Lock Urinary Cath still in place: No Assessment/Plan Assessment/Plan [facility] 1. Ms. Paula is an 83-year-old woman admitted six days ago with [id number] low back pain, secondary to multilevel lumbar disc disease. Appears improved on oral Medrol started by Dr. Mario Teran. 2. Acute kidney injury most likely due to episodes of hypotension, with low- normal blood pressure even off her Coreg. Creatinine improved today to 1.49 from 1.71 yesterday; 0.81 was baseline on admission. My thanks to Dr. Aneesh lynch for his advice. 3. Coronary artery disease and history of congestive heart failure, compensated with no current symptoms 4. Paroxysmal atrial fibrillation, on Eliquis but no rate-control agent. Sinus tachycardia overnight to 108. * Continue current Medrol therapy * Hold Coreg * Urinary sodium pending * Monitor renal function * GI and DVT prophylaxis with oral Protonix and Eliquis respectively * Disposition: Anticipate home with home health; will discuss with her family Morenita Rothman MD PhD [phone] Result Diagram: 12/05/18 0538 12/05/18 0537 Results 24hrs Laboratory Tests Test 12/04/18 18:00 12/05/18 05:37 12/05/18 05:38 12/05/18 07:00 Urine Color YELLOW Urine Clarity CLEAR Urine pH 5.0 Urine Specific 1.013 [place] Urine Ketones NEGATIVE Urine Nitrite NEGATIVE Urine Bilirubin NEGATIVE Urine NEGATIVE Urobilinogen Urine Leukocyte 1+ H Esterase Urine Microscopic 1 RBC Urine Microscopic 5 WBC Urine Bacteria FEW A Urine Hemoglobin 1+ H Urine Random 75.77 Creatinine Urine Random 30 Sodium Urine 0.48 Protein/Creatinin e Ratio Urine Glucose NEGATIVE Urine Total 37.0 H Protein Sodium Level 139 Potassium Level 4.2 Chloride Level 107 Carbon Dioxide 22 Level Anion Gap 10 Blood Urea 35 H Nitrogen Creatinine 1.49 H Est Glomerular Filtrat Rate mL/min Glucose Level 139 # Calcium Level 8.7 White Blood Count 13.0 H Red Blood Count 3.57 L Hemoglobin 10.2 L Hematocrit 31.4 L Mean Corpuscular 88.0 Volume Mean Corpuscular 28.6 L Hemoglobin Mean Corpuscular 32.5 Hemoglobin Concen t Red Cell 14.7 H Distribution Width Platelet Count 331 Mean Platelet 9.9 Volume Immature 0.500 H Granulocytes % Neutrophils % 84.4 H Lymphocytes % 7.6 L Monocytes % 7.4 Eosinophils % 0.0 Basophils % 0.1 Nucleated Red 0.0 Blood Cells % Immature 0.070 H Granulocytes # Neutrophils # 11.0 H Lymphocytes # 1.0 Monocytes # 1.0 H Eosinophils # 0.0 Basophils # 0.0 Nucleated Red 0.0 Blood Cells # Phosphorus Level 3.3 Magnesium Level 1.8 Blood Gas Blood arterial Specimen Source Arterial Blood 12/05/2018 8:45:1 Date Drawn 4 AM Arterial Blood pH 7.385 (Temp corrected) Arterial Blood 31.3 L pCO2 (Temp correct) Arterial Blood 75.9 L pO2 (Temp corrected) Arterial Blood 18.3 L HCO3 Arterial Blood -5.8 L Base Excess Arterial Blood 94.6 L Oxygen Saturation Victor M Test ACCEPTAB Arterial Blood Right Brachial Gas Puncture Site Arterial 0.3 Blood Carboxyhemo globin Arterial Blood 0.2 Methemoglobin Blood Gas A-a O2 36.4 H Differential Oxyhemoglobin 94.1 Percent Blood Gas 37.0 Temperature Blood Gas ROOM AIR Modality FiO2 21.0 Blood Gas Mauricio NIX Notified Whom Blood Gas 12/05/2018 8:59:4 Notified Time 4 AM Subjective 24 Hr Interval Summary Free Text/Dictation Alone this afternoon, without visitors/family. Points to her LUQ when asked about pain. Lack of Slovenian is a limitation in communication. Exam/Review of Systems Exam Vitals Vital Signs Date Temp Pulse Resp B/P (MAP) Pulse Ox O2 O2 Flow FiO2 Time Delivery Rate 12/05/18 98.4 95 20 109/56 95 Room Air 11:01 (73) Intake and Output 12/04/18 12/04/18 12/05/18 1515:00 23:00 07:00 IntakeIntake Total 360 ml 240 ml 1025 ml BalanceBalance 360 ml 240 ml 1025 ml Exam HEENT: PERRL, EOMI, no conjunctivitis, moist oral mucosa, no JVD Chest: Clear bilaterally, no rub CVS: Rhythm regular, normal rate, no murmur, good perfusion. ABD: Non-tender, large, soft, bowel sounds positive. No rebound or guarding. MSk/ext: No edema, no calf tenderness. No arthritis or edema. Neuro: Alert, oriented, cranial nerves/motor intact. Appropriate affect and speech. Results Results 24hrs Laboratory Tests Test 12/04/18 18:00 12/05/18 05:37 12/05/18 05:38 12/05/18 07:00 Urine Color YELLOW Urine Clarity CLEAR Urine pH 5.0 Urine Specific 1.013 [place] Urine Ketones NEGATIVE Urine Nitrite NEGATIVE Urine Bilirubin NEGATIVE Urine NEGATIVE Urobilinogen Urine Leukocyte 1+ H Esterase Urine Microscopic 1 RBC Urine Microscopic 5 WBC Urine Bacteria FEW A Urine Hemoglobin 1+ H Urine Random 75.77 Creatinine Urine Random 30 Sodium Urine 0.48 Protein/Creatinin e Ratio Urine Glucose NEGATIVE Urine Total 37.0 H Protein Sodium Level 139 Potassium Level 4.2 Chloride Level 107 Carbon Dioxide 22 Level Anion Gap 10 Blood Urea 35 H Nitrogen Creatinine 1.49 H Est Glomerular Filtrat Rate mL/min Glucose Level 139 # Calcium Level 8.7 White Blood Count 13.0 H Red Blood Count 3.57 L Hemoglobin 10.2 L Hematocrit 31.4 L Mean Corpuscular 88.0 Volume Mean Corpuscular 28.6 L Hemoglobin Mean Corpuscular 32.5 Hemoglobin Concen t Red Cell 14.7 H Distribution Width Platelet Count 331 Mean Platelet 9.9 Volume Immature 0.500 H Granulocytes % Neutrophils % 84.4 H Lymphocytes % 7.6 L Monocytes % 7.4 Eosinophils % 0.0 Basophils % 0.1 Nucleated Red 0.0 Blood Cells % Immature 0.070 H Granulocytes # Neutrophils # 11.0 H Lymphocytes # 1.0 Monocytes # 1.0 H Eosinophils # 0.0 Basophils # 0.0 Nucleated Red 0.0 Blood Cells # Phosphorus Level 3.3 Magnesium Level 1.8 Blood Gas Blood arterial Specimen Source Arterial Blood 12/05/2018 8:45:1 Date Drawn 4 AM Arterial Blood pH 7.385 (Temp corrected) Arterial Blood 31.3 L pCO2 (Temp correct) Arterial Blood 75.9 L pO2 (Temp corrected) Arterial Blood 18.3 L HCO3 Arterial Blood -5.8 L Base Excess Arterial Blood 94.6 L Oxygen Saturation Victor M Test ACCEPTAB Arterial Blood Right Brachial Gas Puncture Site Arterial 0.3 Blood Carboxyhemo globin Arterial Blood 0.2 Methemoglobin Blood Gas A-a O2 36.4 H Differential Oxyhemoglobin 94.1 Percent Blood Gas 37.0 Temperature Blood Gas ROOM AIR Modality FiO2 21.0 Blood Gas Mauricio NIX Notified Whom Blood Gas 12/05/2018 8:59:4 Notified Time 4 AM Medications Medication Current Medications IV Flush (NS 3 ml) 3 ml PER PROTOCOL IV ; Start 11/30/18 at 21:00 Ondansetron HCl (Zofran Inj) 4 mg Q6H PRN IV NAUSEA/VOMITING Last administered on 12/01/18 06:22; Admin Dose 4 MG; Start 11/30/18 at 21:00 Nitroglycerin (Nitroglycerin (Sl Tab) 0.4 Mg) 1 tab Q5M PRN SL .CHEST PAIN; Start 11/30/18 at 21:00 Acetaminophen (Tylenol Tab) 650 mg Q6H PRN PO .PAIN 1-3 OR TEMP Last administered on 12/04/18 12:57; Admin Dose 650 MG; Start 11/30/18 at 21:00 Albuterol/ Ipratropium (Duoneb) 3 ml Q2H RESP THERAPY PRN HHN SHORTNESS OF BREATH; Start 11/30/18 at 21:00 Apixaban (Eliquis) 2.5 mg BID PO Last administered on 12/05/18 08:10; Admin Dose 2.5 MG; Start 11/30/18 at 21:00 Atorvastatin Calcium (Lipitor) 40 mg QHS PO Last administered on 12/04/18 20:51; Admin Dose 40 MG; Start 11/30/18 at 21:00 Clopidogrel Bisulfate (plaVIX) 75 mg DAILY PO Last administered on 12/05/18 08:10; Admin Dose 75 MG; Start 12/01/18 at 09:00 Pantoprazole (Protonix Tab) 40 mg DAILY PO Last administered on 12/05/18 08:10; Admin Dose 40 MG; Start 12/01/18 at 09:00 Docusate Sodium (Colace) 100 mg BID PO Last administered on 12/05/18 08:10; Admin Dose 100 MG; Start 12/01/18 at 21:00 Tramadol HCl (Ultram) 50 mg Q6H PRN PO MODERATE PAIN LEVEL 4-6 Last administered on 12/04/18 09:07; Admin Dose 50 MG; Start 12/01/18 at 11:30 Lorazepam (Ativan) 1 mg BID PRN PO ANXIETY Last administered on 12/02/18 09:31; Admin Dose 1 MG; Start 12/01/18 at 11:30 Cefepime HCl 50 ml @ 100 mls/hr Q12 IVPB Last administered on 12/05/18 08:10; Admin Dose 100 MLS/HR; Start 12/01/18 at 11:30 Hydralazine HCl (Apresoline) 10 mg Q4H PRN IV sbp >160; Start 12/01/18 at 12:30 Duloxetine HCl (Cymbalta) 30 mg BID PO Last administered on 12/05/18 08:09; Admin Dose 30 MG; Start 12/01/18 at 21:00 Megestrol Acetate (Megace) 40 mg BID PO Last administered on 12/05/18 08:10; Admin Dose 40 MG; Start 12/02/18 at 21:00 Methylprednisolone (Medrol Dose Pack) ay 1: 24 mg on day 1, administe... STD DOSE PACK PO ; Start 12/02/18 at 18:00; Stop 12/07/18 at 09:00 Gabapentin (Neurontin) 300 mg BID PO Last administered on 12/05/18 08:10; Admin Dose 300 MG; Start 12/02/18 at 21:00 Methylprednisolone (Medrol) 4 mg AC BREAKFAST PO Last administered on 12/05/18 08:09; Admin Dose 4 MG; Start 12/03/18 at 07:25; Stop 12/07/18 at 07:26 Methylprednisolone (Medrol) 4 mg HS PO Last administered on 12/04/18 20:51; Admin Dose 4 MG; Start 12/04/18 at 21:00; Stop 12/06/18 at 21:01 Sodium Chloride 1,000 ml @ 50 mls/hr Q20H IV Last administered on 12/05/18 10:47; Admin Dose 50 MLS/HR; Start 12/04/18 at 15:00 CONSTANCE ROTHMAN M.D. Dec 05, 2018 13:24
--- NOTE | 2018-12-05 13:55 | CONS ---
Assessment/Plan Assessment/Plan Assessment/Plan (Daily) # MIRACLE Likely ATN due to transient hypotension fluids in the setting of nonsteroidals and Entresto. Renal function improving Ultrasound pending # Low back pain secondary to degenerative arthritis and disk disease. # Cardiomyopathy and known coronary artery disease. Consultation Date/Type/Reason Admit Date/Time Nov 30, 2018 at 20:02 Initial Consult Date 12/01/18 Type of Consult Nephrology Requesting Provider: JENNIFER SANCHEZ Date/Time of Note DATE: 12/05/18 TIME: 13:52 24 HR Interval Summary Free Text/Dictation Alert, no complaints Exam/Review of Systems Exam Vitals Vital Signs Date Temp Pulse Resp B/P (MAP) Pulse Ox O2 O2 Flow FiO2 Time Delivery Rate 12/05/18 98.4 95 20 109/56 95 Room Air 11:01 (73) Intake and Output 12/04/18 12/04/18 12/05/18 1515:00 23:00 07:00 IntakeIntake Total 360 ml 240 ml 1025 ml BalanceBalance 360 ml 240 ml 1025 ml Neck: supple; No jvd Respiratory: clear to auscultation Cardiovascular: regular rate and rhythm Extremities: No edema Results Result Diagram: 12/05/18 0538 12/05/18 0537 Results 24hrs Laboratory Tests Test 12/04/18 18:00 12/05/18 05:37 12/05/18 05:38 12/05/18 07:00 Urine Color YELLOW Urine Clarity CLEAR Urine pH 5.0 Urine Specific 1.013 [place] Urine Ketones NEGATIVE Urine Nitrite NEGATIVE Urine Bilirubin NEGATIVE Urine NEGATIVE Urobilinogen Urine Leukocyte 1+ H Esterase Urine Microscopic 1 RBC Urine Microscopic 5 WBC Urine Bacteria FEW A Urine Hemoglobin 1+ H Urine Random 75.77 Creatinine Urine Random 30 Sodium Urine 0.48 Protein/Creatinin e Ratio Urine Glucose NEGATIVE Urine Total 37.0 H Protein Sodium Level 139 Potassium Level 4.2 Chloride Level 107 Carbon Dioxide 22 Level Anion Gap 10 Blood Urea 35 H Nitrogen Creatinine 1.49 H Est Glomerular Filtrat Rate mL/min Glucose Level 139 # Calcium Level 8.7 White Blood Count 13.0 H Red Blood Count 3.57 L Hemoglobin 10.2 L Hematocrit 31.4 L Mean Corpuscular 88.0 Volume Mean Corpuscular 28.6 L Hemoglobin Mean Corpuscular 32.5 Hemoglobin Concen t Red Cell 14.7 H Distribution Width Platelet Count 331 Mean Platelet 9.9 Volume Immature 0.500 H Granulocytes % Neutrophils % 84.4 H Lymphocytes % 7.6 L Monocytes % 7.4 Eosinophils % 0.0 Basophils % 0.1 Nucleated Red 0.0 Blood Cells % Immature 0.070 H Granulocytes # Neutrophils # 11.0 H Lymphocytes # 1.0 Monocytes # 1.0 H Eosinophils # 0.0 Basophils # 0.0 Nucleated Red 0.0 Blood Cells # Phosphorus Level 3.3 Magnesium Level 1.8 Blood Gas Blood arterial Specimen Source Arterial Blood 12/05/2018 8:45:1 Date Drawn 4 AM Arterial Blood pH 7.385 (Temp corrected) Arterial Blood 31.3 L pCO2 (Temp correct) Arterial Blood 75.9 L pO2 (Temp corrected) Arterial Blood 18.3 L HCO3 Arterial Blood -5.8 L Base Excess Arterial Blood 94.6 L Oxygen Saturation Victor M Test ACCEPTAB Arterial Blood Right Brachial Gas Puncture Site Arterial 0.3 Blood Carboxyhemo globin Arterial Blood 0.2 Methemoglobin Blood Gas A-a O2 36.4 H Differential Oxyhemoglobin 94.1 Percent Blood Gas 37.0 Temperature Blood Gas ROOM AIR Modality FiO2 21.0 Blood Gas Mauricio NIX Notified Whom Blood Gas 12/05/2018 8:59:4 Notified Time 4 AM Medications Medication Current Medications IV Flush (NS 3 ml) 3 ml PER PROTOCOL IV ; Start 11/30/18 at 21:00 Ondansetron HCl (Zofran Inj) 4 mg Q6H PRN IV NAUSEA/VOMITING Last administered on 12/01/18at 06:22; Admin Dose 4 MG; Start 11/30/18 at 21:00 Nitroglycerin (Nitroglycerin (Sl Tab) 0.4 Mg) 1 tab Q5M PRN SL .CHEST PAIN; Start 11/30/18 at 21:00 Acetaminophen (Tylenol Tab) 650 mg Q6H PRN PO .PAIN 1-3 OR TEMP Last administered on 12/04/18at 12:57; Admin Dose 650 MG; Start 11/30/18 at 21:00 Albuterol/ Ipratropium (Duoneb) 3 ml Q2H RESP THERAPY PRN HHN SHORTNESS OF BREATH; Start 11/30/18 at 21:00 Apixaban (Eliquis) 2.5 mg BID PO Last administered on 7/20/19at 08:10; Admin Dose 2.5 MG; Start 11/30/18 at 21:00 Atorvastatin Calcium (Lipitor) 40 mg QHS PO Last administered on 12/04/18 20:51; Admin Dose 40 MG; Start 11/30/18 at 21:00 Clopidogrel Bisulfate (plaVIX) 75 mg DAILY PO Last administered on 12/05/18 08:10; Admin Dose 75 MG; Start 12/01/18 at 09:00 Pantoprazole (Protonix Tab) 40 mg DAILY PO Last administered on 12/05/18 08:10; Admin Dose 40 MG; Start 12/01/18 at 09:00 Docusate Sodium (Colace) 100 mg BID PO Last administered on 12/05/18 08:10; Admin Dose 100 MG; Start 12/01/18 at 21:00 Tramadol HCl (Ultram) 50 mg Q6H PRN PO MODERATE PAIN LEVEL 4-6 Last administered on 12/04/18 09:07; Admin Dose 50 MG; Start 12/01/18 at 11:30 Lorazepam (Ativan) 1 mg BID PRN PO ANXIETY Last administered on 12/02/18 09:31; Admin Dose 1 MG; Start 12/01/18 at 11:30 Cefepime HCl 50 ml @ 100 mls/hr Q12 IVPB Last administered on 12/05/18 08:10; Admin Dose 100 MLS/HR; Start 12/01/18 at 11:30 Hydralazine HCl (Apresoline) 10 mg Q4H PRN IV sbp >160; Start 12/01/18 at 12:30 Duloxetine HCl (Cymbalta) 30 mg BID PO Last administered on 12/05/18 08:09; Admin Dose 30 MG; Start 12/01/18 at 21:00 Megestrol Acetate (Megace) 40 mg BID PO Last administered on 12/05/18 08:10; Admin Dose 40 MG; Start 12/02/18 at 21:00 Methylprednisolone (Medrol Dose Pack) ay 1: 24 mg on day 1, administe... STD DOSE PACK PO ; Start 12/02/18 at 18:00; Stop 12/07/18 at 09:00 Gabapentin (Neurontin) 300 mg BID PO Last administered on 12/05/18 08:10; Admin Dose 300 MG; Start 12/02/18 at 21:00 Methylprednisolone (Medrol) 4 mg AC BREAKFAST PO Last administered on at 08:09; Admin Dose 4 MG; Start 12/03/18 at 07:25; Stop 12/07/18 at 07:26 Methylprednisolone (Medrol) 4 mg HS PO Last administered on 12/04/18at 20:51; Admin Dose 4 MG; Start 12/04/18 at 21:00; Stop 12/06/18 at 21:01 Sodium Chloride 1,000 ml @ 50 mls/hr Q20H IV Last administered on 12/05/18at 10 :47; Admin Dose 50 MLS/HR; Start 12/04/18 at 15:00 WANDY OVALLES MD Dec 05, 2018 13:55
[2018-12-05 15:10] VITALS: BP 118/63; PULSE 95; RESP 20
--- NOTE | 2018-12-05 16:08 | RADRPT ---
Vent Rate: 81 bpm RR Interval: 740 msec AL Interval: 137 msec QRS Duration: 76 msec QT Interval: 368 msec QTC Interval: 428 msec P-R-T [place]: 26 - 2 - 112 degrees Sinus rhythm...normal P axis, V-rate 50- 99 Inferior infarct, old...Q >35mS, II III aVF Anteroseptal infarct, age indeterminate...Q >35mS, T neg, V1-V2 Electronically Signed By: Nakul Mason
[2018-12-05 20:02] VITALS: BP 122/85; PULSE 81; RESP 18
[2018-12-05] MEDS: ATORVASTATIN 40 MG TAB PO SCH (20:04)
[2018-12-06] VITALS (7 sets, daily range): BP systolic 95–147; BP diastolic 51–75; PULSE 76–97; RESP 18–22
[2018-12-06] MEDS: SOD CHLORIDE 0.9% 1,000 ML IV SCH (06:50)
[2018-12-06] MEDS: METHYLPREDNISOLONE 4 MG TAB PO SCH ×2 (06:50→20:25)
[2018-12-06] MEDS: CEFEPIME 1GM/50 ML (PMX) 50 ML IVPB SCH ×2 (08:32→20:25)
[2018-12-06] MEDS: CLOPIDOGREL 75 MG TAB PO SCH (08:32)
[2018-12-06] MEDS: APIXABAN 5 MG TABLET PO SCH ×2 (08:32→20:26)
[2018-12-06] MEDS: GABAPENTIN 300 MG CAP PO SCH ×2 (08:32→20:26)
[2018-12-06] MEDS: DULOXETINE 30 MG CAP DR PO SCH ×2 (08:33→20:25)
[2018-12-06] MEDS: MEGESTROL 40 MG TAB PO SCH ×2 (08:33→20:26)
[2018-12-06] MEDS: PANTOPRAZOLE (EC) 40 MG TAB PO SCH (08:33)
[2018-12-06] MEDS: DOCUSATE SODIUM 100 MG CAP PO SCH ×2 (08:33→20:25)
[2018-12-06] MEDS: traMADol 50 MG TAB PO PRN (11:06)
--- NOTE | 2018-12-06 13:52 | CONS ---
Assessment/Plan Assessment/Plan Assessment/Plan (Daily) # MIRACLE Likely ATN due to transient hypotension + NSAID + ARB Renal function continues to improve # Low back pain secondary to degenerative arthritis and disk disease. # Cardiomyopathy and known coronary artery disease Appears euvolemic Consultation Date/Type/Reason Admit Date/Time Nov 30, 2018 at 20:02 Initial Consult Date 12/01/18 Type of Consult Nephrology Requesting Provider: JENNIFER SANCHEZ Date/Time of Note DATE: 12/06/18 TIME: 13:48 24 HR Interval Summary Free Text/Dictation Complains of back pain Exam/Review of Systems Exam Vitals Vital Signs Date Temp Pulse Resp B/P (MAP) Pulse Ox O2 O2 Flow FiO2 Time Delivery Rate 12/06/18 97.8 97 22 103/51 96 Room Air 11:49 (68) Intake and Output 12/05/18 12/05/18 12/06/18 1515:00 23:00 07:00 IntakeIntake Total 240 ml 290 ml 1500 ml OutputOutput Total 350 ml BalanceBalance -110 ml 290 ml 1500 ml Head: normocephalic Neck: supple; No jvd Respiratory: clear to auscultation Cardiovascular: regular rate and rhythm Gastrointestinal: soft, non-tender Extremities: No edema Results Result Diagram: 12/06/18 0546 12/06/18 0545 Results 24hrs Laboratory Tests Test 12/06/18 05:45 12/06/18 05:46 Sodium Level 142 Potassium Level 4.1 Chloride Level 114 H Carbon Dioxide Level 21 Anion Gap 7 Blood Urea Nitrogen 25 H Creatinine 0.93 Est Glomerular Filtrat Rate mL/min Glucose Level 94 # Calcium Level 8.7 Total Bilirubin 0.5 Direct Bilirubin 0.00 Indirect Bilirubin 0.5 Aspartate Amino Transf (AST/SGOT) 18 Alanine Aminotransferase (ALT/SGPT) 23 Alkaline Phosphatase 51 Total Protein 5.9 L Albumin 3.0 L Globulin 2.90 Albumin/Globulin Ratio 1.03 White Blood Count 10.6 Red Blood Count 3.58 L Hemoglobin 10.3 L Hematocrit 31.9 L Mean Corpuscular Volume 89.1 Mean Corpuscular Hemoglobin 28.8 L Mean Corpuscular Hemoglobin Concent 32.3 Red Cell Distribution Width 15.0 H Platelet Count 316 Mean Platelet Volume 9.9 Immature Granulocytes % 0.400 Neutrophils % 73.0 Lymphocytes % 15.6 Monocytes % 9.6 Eosinophils % 1.3 Basophils % 0.1 Nucleated Red Blood Cells % 0.0 Immature Granulocytes # 0.040 H Neutrophils # 7.7 H Lymphocytes # 1.7 Monocytes # 1.0 H Eosinophils # 0.1 Basophils # 0.0 Nucleated Red Blood Cells # 0.0 Medications Medication Current Medications IV Flush (NS 3 ml) 3 ml PER PROTOCOL IV ; Start 11/30/18 at 21:00 Ondansetron HCl (Zofran Inj) 4 mg Q6H PRN IV NAUSEA/VOMITING Last administered on 12/01/18 06:22; Admin Dose 4 MG; Start 11/30/18 at 21:00 Nitroglycerin (Nitroglycerin (Sl Tab) 0.4 Mg) 1 tab Q5M PRN SL .CHEST PAIN; Start 11/30/18 at 21:00 Acetaminophen (Tylenol Tab) 650 mg Q6H PRN PO .PAIN 1-3 OR TEMP Last administered on 12/04/18 12:57; Admin Dose 650 MG; Start 11/30/18 at 21:00 Albuterol/ Ipratropium (Duoneb) 3 ml Q2H RESP THERAPY PRN HHN SHORTNESS OF BREATH; Start 11/30/18 at 21:00 Apixaban (Eliquis) 2.5 mg BID PO Last administered on 12/06/18 08:32; Admin Dose 2.5 MG; Start 11/30/18 at 21:00 Atorvastatin Calcium (Lipitor) 40 mg QHS PO Last administered on 12/05/18 20:04; Admin Dose 40 MG; Start 11/30/18 at 21:00 Clopidogrel Bisulfate (plaVIX) 75 mg DAILY PO Last administered on 12/06/18 08:32; Admin Dose 75 MG; Start 12/01/18 at 09:00 Pantoprazole (Protonix Tab) 40 mg DAILY PO Last administered on 12/06/18 08:33; Admin Dose 40 MG; Start 12/01/18 at 09:00 Docusate Sodium (Colace) 100 mg BID PO Last administered on 12/05/18 20:04; Admin Dose 100 MG; Start 12/01/18 at 21:00 Tramadol HCl (Ultram) 50 mg Q6H PRN PO MODERATE PAIN LEVEL 4-6 Last administered on 7/21/19at 11:06; Admin Dose 50 MG; Start 12/01/18 at 11:30 Lorazepam (Ativan) 1 mg BID PRN PO ANXIETY Last administered on 12/02/18at 09:31; Admin Dose 1 MG; Start 12/01/18 at 11:30 Cefepime HCl 50 ml @ 100 mls/hr Q12 IVPB Last administered on 12/06/18at 08:32; Admin Dose 100 MLS/HR; Start 12/01/18 at 11:30 Hydralazine HCl (Apresoline) 10 mg Q4H PRN IV sbp >160; Start 12/01/18 at 12:30 Duloxetine HCl (Cymbalta) 30 mg BID PO Last administered on 12/06/18 08:33; Admin Dose 30 MG; Start 12/01/18 at 21:00 Megestrol Acetate (Megace) 40 mg BID PO Last administered on 12/06/18at 08:33; Admin Dose 40 MG; Start 12/02/18 at 21:00 Methylprednisolone (Medrol Dose Pack) ay 1: 24 mg on day 1, administe... STD DOSE PACK PO ; Start 12/02/18 at 18:00; Stop 12/07/18 at 09:00 Gabapentin (Neurontin) 300 mg BID PO Last administered on 12/06/18at 08:32; Admin Dose 300 MG; Start 12/02/18 at 21:00 Methylprednisolone (Medrol) 4 mg AC BREAKFAST PO Last administered on 12/06/18at 06:50; Admin Dose 4 MG; Start 12/03/18 at 07:25; Stop 12/07/18 at 07:26 Methylprednisolone (Medrol) 4 mg HS PO Last administered on 12/05/18at 20:04; Admin Dose 4 MG; Start 12/04/18 at 21:00; Stop 12/06/18 at 21:01 Sodium Chloride 1,000 ml @ 50 mls/hr Q20H IV Last administered on 12/06/18at 06:50; Admin Dose 50 MLS/HR; Start 12/04/18 at 15:00 WANDY OVALLES MD Dec 06, 2018 13:52
[2018-12-06] MEDS: ATORVASTATIN 40 MG TAB PO SCH (20:25)
[2018-12-07] MEDS: SOD CHLORIDE 0.9% 1,000 ML IV SCH (03:00)
[2018-12-07 04:16] VITALS: BP 117/58; PULSE 86; RESP 19
--- NOTE | 2018-12-07 05:21 | DS ---
Date/Time of Note Date/Time of Note DATE: 12/06/18 TIME: 21:20 Discharge Summary Admission/Discharge Info Admit Date/Time Nov 30, 2018 at 20:02 Discharge Date/Time Dec 07, 2018 Discharge Diagnosis Degenerative disc disease (back pain) Acute renal failure Patient Condition: Good Consults Anurag Castellanos MD, Aneesh Luu MD (nephrology) Sarah Spicer MD (cardiology) Mario Teran MD (neurosurgery) Karen Rebollar NP (psychiatry) Hx of Present Illness Ms. Paula is an 83-year-old woman admitted seven days ago with [id number] low back pain, secondary to multilevel lumbar disc disease. She has a history of coronary artery disease and congestive heart failure (with two stents), well-compensated currently, and also paroxysmal atrial fibrillation on Eliquis but rate-controlled without a rate control agent. Patient speaks only Polish. Appears this back pain is an exacerbation of her chronic back pain she has been dealing with for many years. She underwent epidural steroid injection a few months ago. Speaking with her family, the patient has been chronically more debilitated as the months have been going on, originally using a cane, then a walker, and now barely wants to move after her recent multiple hospitalizations. Her granddaughter also expressed concern that she eats and drinks little at home, in part because of concern about having to get to the bathroom. Patient does not do well with [place], taking only tramadol and naproxen at home per family members. Hospital Course Patient refused MRI, and underwent CT scan that showed mild lumbar dextroscolio sis; at L4-5, there is a large disc extrusion, extending posteriorly 9 mm and superiorly 18 mm. Along with moderate to severe facet hypertrophy, this produces severe appearing central canal stenosis. Severe right and moderate to severe left foraminal stenosis. Findings appear similar or increased from prior MRI; 6 mm disc osteophyte complex and moderate facet hypertrophy at L3-L4. This produces moderate appearing central canal stenosis, and moderate right foraminal stenosis; mild to moderate central canal stenosis at L2-L3; moderate to severe right and moderate left foraminal stenosis at L5-S1; and right adnexal cystic structure, at least 3.5 cm. Admitting labs showed WBC 10.6 and creatinine of 0.81. She was evaluated by Dr. Mario Teran (neurosurgery) for the lumbar spinal stenosis, and treated with oral medrol BID, ibuprofen, and gabapentin. Her WBC responded as expected with a leukocytosis to 15.8. UA was bland, but she was started 12/01/18 on cefepime. Clean catch urine tested positive for Irina albicans and mixed pascual. Blood cultures were negative. She had gradual escalation in her creatinine to 1.71 on the fourth hospital day. Nephrology consultation with Dr. Aneesh Luu led to gental hydration and recovery by the sixth day of a normal creatinine. Attributed to acute kidney injury due to episodes of hypotension, with low- normal blood pressure even off her Coreg. She was evaluated by the psychiatric nurse practitioner, Karen Rebollar NP, and diagnosed with major depression. She expressed some suicidal thoughts, but assured that she would never kill herself. She was started on duloxetine, and seemed somewhat more upbeat during the hospitalization. I spoke with the patient together with her granddaughter Friday (12/06/18), and she seemed receptive to embarking on a course of physical therapy at [facility] in [place]. So arrangements are underway to seek placement there on a steriod taper. She has moderate bleeding risk, on Plavix, aspirin, and Eliquis, and fragile renal function; so NSAIDs stopped. GI prophylaxis switched from pantoprazole to famotidine, in light of concerns about PPI-use risks in elderly patients. Home Meds Active Scripts Duloxetine Hcl* (Cymbalta*) 30 Mg Capsule., 30 MG PO BID for 30 Days Prov:CONSTANCE RICHARD M.D. 12/07/18 Famotidine* (Famotidine*) 20 Mg Tablet, 20 MG PO DAILY for 30 Days, TAB Prov:CONSTANCE RICHARD M.D. 12/07/18 Methylprednisolone* (Medrol*) 4 Mg Tab, 4 MG PO AC BREAKFAST for 4 Days, #4 TAB Prov:CONSTANCE RICHARD M.D. 12/07/18 Reported Medications Lorazepam* (Lorazepam*) 1 Mg Tablet, 1 MG PO BID PRN for ANXIETY, #30 TAB 11/30/18 Tramadol HCl (Tramadol HCl) 50 Mg Tablet, 50 MG PO QHS for 30 Days, #30 11/30/18 Meclizine Hcl* (Meclizine Hcl*) 25 Mg Tablet, 25 MG PO DAILY for 30 Days, #30 11/30/18 Docusate Sodium (Col-Rite) 100 Mg Capsule, 100 MG PO Q12 for 30 Days, #60 take 1 capsule by mouth every 12 hours if needed for constipation; 11/30/18 Ipratropium [place]* (Atrovent HFA*) 12.9 Gm Aer.w.adap, 2 PUFF INHALATION Q4H for SHORTNESS OF BREATH, #1 INHALER 11/30/18 Megestrol Acetate* (Megace*) 40 Mg Tab, 40 MG PO BID for 30 Days, #60 11/30/18 Clopidogrel Bisulfate* (Clopidogrel Bisulfate*) 75 Mg Tablet, 75 MG PO DAILY, #30 TAB 06/25/18 Furosemide* (Furosemide*) 40 Mg Tablet, 40 MG PO DAILY, TAB 06/25/18 Sacubitril/Valsartan (Entresto 49 mg-51 mg Tablet) 1 Each Tablet, 1 EACH PO BID, TAB 06/25/18 Atorvastatin* (Atorvastatin*) 40 Mg Tablet, 40 MG PO QHS, #30 TAB 06/25/18 Carvedilol* (Carvedilol*) 6.25 Mg Tablet, 6.25 MG PO BID, #60 TAB 06/25/18 Apixaban* (Eliquis*) 2.5 Mg Tablet, 2.5 MG PO BID, TAB 06/25/18 Discontinued Reported Medications Escitalopram Oxalate* (Escitalopram Oxalate*) 5 Mg Tablet, 5 MG PO DAILY for 30 Days, #30 take 1 tablet by mouth once daily 11/30/18 Ibuprofen* (Ibuprofen*) 800 Mg Tablet, 800 MG PO Q6H PRN for PAIN LEVEL 6-10 11/30/18 Clopidogrel Bisulfate (Clopidogrel) 75 Mg Tablet, 75 MG PO DAILY for 30 Days, #30 11/30/18 Pantoprazole* (Pantoprazole*) 40 Mg Tablet.dr, 40 MG PO DAILY for 30 Days, #30 11/30/18 Zolpidem Tartrate* (Zolpidem Tartrate*) 5 Mg Tablet, 5 MG PO QHS PRN for NEEDED, #30 TAB 10/20/18 Zolpidem Tartrate* (Zolpidem Tartrate*) 10 Mg Tablet, 10 MG PO DAILY for 30 Days, #30 11/30/18 Discontinued Scripts Cephalexin* (Keflex*) 500 Mg Capsule, 500 MG PO TID for 7 Days, CAP Prov:JENNIFER LOMELI MD 11/20/18 Follow-up Plan SNF placement Primary Care Provider Shahzad Crowell MD in [place] Time spent on discharge: > 30 minutes Pending Labs Laboratory Tests Test 12/06/18 05:45 12/06/18 05:46 Sodium Level 142 mmol/L (135-144) Potassium Level 4.1 mmol/L (3.5-5.1) Chloride Level 114 mmol/L (97-110) Carbon Dioxide Level 21 mmol/L (21-31) Anion Gap 7 (5-13) Blood Urea Nitrogen 25 mg/dl (7-20) Creatinine 0.93 mg/dl (0.44-1.00) Est Glomerular Filtrat mL/min (>60) Rate mL/min Glucose Level 94 mg/dl (70-220) Calcium Level 8.7 mg/dl (8.4-10.2) Total Bilirubin 0.5 mg/dl (0.2-1.3) Direct Bilirubin 0.00 mg/dl (0.00-0.20) Indirect Bilirubin 0.5 mg/dl (0-1.1) Aspartate Amino 18 IU/L (15-46) Transf (AST/SGOT) Alanine 23 IU/L (13-69) Aminotransferase (ALT/SGPT) Alkaline Phosphatase 51 IU/L (42-121) Total Protein 5.9 g/dl (6.1-8.1) Albumin 3.0 g/dl (3.3-4.9) Globulin 2.90 g/dl (1.3-3.2) Albumin/Globulin Ratio 1.03 White Blood Count 10.6 10^3/ul (4.8-10.8) Red Blood Count 3.58 10^6/ul (4.20-5.40) Hemoglobin 10.3 g/dl (12.0-16.0) Hematocrit 31.9 % (37.0-47.0) Mean Corpuscular Volume 89.1 fl (82.0-101.0) Mean Corpuscular Hemoglobin 28.8 pg (29.0-33.0) Mean Corpuscular 32.3 g/dl (32.0-37.0) Hemoglobin Concent Red Cell Distribution Width 15.0 % (11.5-14.5) Platelet Count 316 10^3/UL (140-415) Mean Platelet Volume 9.9 fl (7.4-10.4) Immature Granulocytes % 0.400 % (0.001-0.429) Neutrophils % 73.0 % (39.0-77.0) Lymphocytes % 15.6 % (15.0-51.0) Monocytes % 9.6 % (0.0-11.0) Eosinophils % 1.3 % (0.0-7.0) Basophils % 0.1 % (0.0-2.0) Nucleated Red Blood Cells % 0.0 /100WBC (0.0-0.0) Immature Granulocytes # 0.040 10^3/ul (0.0-0.031) Neutrophils # 7.7 10^3/ul (1.6-7.5) Lymphocytes # 1.7 10^3/ul (0.8-2.9) Monocytes # 1.0 10^3/ul (0.3-0.9) Eosinophils # 0.1 10^3/ul (0.0-0.5) Basophils # 0.0 10^3/ul (0.0-0.1) Nucleated Red Blood Cells # 0.0 10^3/ul (0.0-0.0) CONSTANCE RICHARD M.D. Dec 07, 2018 05:21
--- NOTE | 2018-12-07 06:06 | PDOCDIS ---
Discharge Instructions DIAGNOSIS Discharge Diagnosis Degenerative disc disease (back pain); Acute renal failure (resolved); CAD with paroxysmal atrial fibrillation; major depression CONDITION [id number] Patient Condition: [id number] Fair HOME CARE INSTRUCTIONS: Elvi Diet Instructions: Markus Low Fat /Cholesterol ACTIVITY: [id number] Activity Restrictions: Myvyr2c Slowly Increase Activity FOLLOW UP/APPOINTMENTS Follow-up Plan SNF placement CONSTANCE RICHARD M.D. Dec 07, 2018 06:06
[2018-12-07] MEDS ORDERED: METH4TAB PO (06:12)
[2018-12-07] MEDS ORDERED: FAMO20TA18 PO (06:12)
[2018-12-07] MEDS ORDERED: DULO30CA45 PO (06:12)
[2018-12-07] MEDS: METHYLPREDNISOLONE 4 MG TAB PO SCH (06:36)
[2018-12-07 07:19] VITALS: BP 127/75; PULSE 96; RESP 20
--- NOTE | 2018-12-07 08:34 | CONS ---
Assessment/Plan Assessment/Plan Assessment/Plan 1. Acute renal failure has resolved, pending labs today, will see again on request 2. Cardiomyopathy without chf, can resume Entresto per cardioloigy 3. Anemia is stable Consultation Date/Type/Reason Admit Date/Time Nov 30, 2018 at 20:02 Type of Consult Nephrology Date/Time of Note DATE: 12/07/18 TIME: 08:32 Respiratory: No cough, No shortness of breath Gastrointestinal: No no complaints Exam/Review of Systems Vital Signs Vitals Vital Signs Date Temp Pulse Resp B/P (MAP) Pulse Ox O2 O2 Flow FiO2 Time Delivery Rate 12/07/18 98.5 96 20 127/75 98 Room Air 07:19 (92) Intake and Output 12/06/18 12/06/18 12/07/18 1515:00 23:00 07:00 IntakeIntake Total 750 ml 300 ml OutputOutput Total 400 ml BalanceBalance 350 ml 300 ml Exam Neck: No jvd Respiratory: clear to auscultation Cardiovascular: regular rate and rhythm Gastrointestinal: soft Extremities: No edema Labs Result Diagram: 12/06/18 0546 12/06/18 0545 Medications Medications Current Medications IV Flush (NS 3 ml) 3 ml PER PROTOCOL IV ; Start 11/30/18 at 21:00 Ondansetron HCl (Zofran Inj) 4 mg Q6H PRN IV NAUSEA/VOMITING Last administered on 12/01/18at 06:22; Admin Dose 4 MG; Start 11/30/18 at 21:00 Nitroglycerin (Nitroglycerin (Sl Tab) 0.4 Mg) 1 tab Q5M PRN SL .CHEST PAIN; Start 11/30/18 at 21:00 Acetaminophen (Tylenol Tab) 650 mg Q6H PRN PO .PAIN 1-3 OR TEMP Last administered on 12/04/18at 12:57; Admin Dose 650 MG; Start 11/30/18 at 21:00 Albuterol/ Ipratropium (Duoneb) 3 ml Q2H RESP THERAPY PRN HHN SHORTNESS OF BREATH; Start 11/30/18 at 21:00 Apixaban (Eliquis) 2.5 mg BID PO Last administered on 12/06/18at 20:26; Admin Dose 2.5 MG; Start 11/30/18 at 21:00 Atorvastatin Calcium (Lipitor) 40 mg QHS PO Last administered on 12/06/18 20:25; Admin Dose 40 MG; Start 11/30/18 at 21:00 Clopidogrel Bisulfate (plaVIX) 75 mg DAILY PO Last administered on 12/06/18 08:32; Admin Dose 75 MG; Start 12/01/18 at 09:00 Docusate Sodium (Colace) 100 mg BID PO Last administered on 12/06/18 20:25; Admin Dose 100 MG; Start 12/01/18 at 21:00 Tramadol HCl (Ultram) 50 mg Q6H PRN PO MODERATE PAIN LEVEL 4-6 Last administered on 12/06/18 11:06; Admin Dose 50 MG; Start 12/01/18 at 11:30 Lorazepam (Ativan) 1 mg BID PRN PO ANXIETY Last administered on 12/02/18 09:31; Admin Dose 1 MG; Start 12/01/18 at 11:30 Hydralazine HCl (Apresoline) 10 mg Q4H PRN IV sbp >160; Start 12/01/18 at 12:30 Duloxetine HCl (Cymbalta) 30 mg BID PO Last administered on 12/06/18 20:25; Admin Dose 30 MG; Start 12/01/18 at 21:00 Megestrol Acetate (Megace) 40 mg BID PO Last administered on 12/06/18 20:26; Admin Dose 40 MG; Start 12/02/18 at 21:00 Methylprednisolone (Medrol Dose Pack) ay 1: 24 mg on day 1, administe... STD DOSE PACK PO ; Start 12/02/18 at 18:00; Stop 12/07/18 at 09:00 Gabapentin (Neurontin) 300 mg BID PO Last administered on 12/06/18 20:26; Admin Dose 300 MG; Start 12/02/18 at 21:00 Famotidine (Pepcid) 20 mg DAILY PO ; Start 12/07/18 at 09:00 YANNICK GOMEZ MD Dec 07, 2018 08:34
[2018-12-07] MEDS ORDERED: FAMOTIDINE 20 MG TAB PO SCH (09:00)
[2018-12-07] MEDS: MEGESTROL 40 MG TAB PO SCH (09:18)
[2018-12-07] MEDS: DULOXETINE 30 MG CAP DR PO SCH (09:18)
[2018-12-07] MEDS: GABAPENTIN 300 MG CAP PO SCH (09:18)
[2018-12-07] MEDS: DOCUSATE SODIUM 100 MG CAP PO SCH (09:18)
[2018-12-07] MEDS: APIXABAN 5 MG TABLET PO SCH (09:19)
[2018-12-07] MEDS: CLOPIDOGREL 75 MG TAB PO SCH (09:19)
[2018-12-07] MEDS: traMADol 50 MG TAB PO PRN (10:27)
[2018-12-07 10:55] VITALS: BP 139/71; PULSE 95; RESP 20
[2018-12-07 14:58] VITALS: BP 104/55; PULSE 99; RESP 20
--- NOTE | 2018-12-08 02:32 | DS ---
DATE OF ADMISSION: 11/30/2018 DATE OF DISCHARGE: 12/07/2018 DISCHARGE DIAGNOSES: 1. An 83-year-old female with acute on chronic low back pain, improved. 2. Acute kidney injury, resolved. 3. Coronary artery disease, stable. 4. Chronic congestive heart failure, compensated. 5. Paroxysmal atrial fibrillation, on Eliquis. HOSPITAL COURSE: An 83-year-old female with multiple other medical problems, presented to emergency room with complaint of acute on chronic low back pain. Patient refused LS spine MRI. CAT scan of eun mbar spine showed L4-L5 large disk extrusion extending posteriorly about 9 mm and superiorly about 18 mm. There was moderate to severe facet hypertrophy with severe appearing central canal stenosis. T here was also severe right and moderate severe left foraminal stenosis. These findings appeared to b e similar or somewhat increased from prior MRI. The patient was seen in consultation by Dr. Marie. Treatment with anti-inflammatories and steroids w ere recommended. The patient had normal neurological symptoms. She developed acute kidney injury due to episodes of hypotension. The patient was seen in consultati on by Dr. Luu. Kidney function was back to normal with gentle hydration. At this point, patient is in stable condition for transition to [facility]. She can be nefit from physical therapy and rehabilitation. MEDICATIONS ON DISCHARGE: 1. Cymbalta 30 mg p.o. b.i.d. 2. Pepcid 20 mg daily. 3. Medrol 4 mg daily. 4. Eliquis 2.5 mg b.i.d. 5. Lipitor 40 mg at bedtime. 6. Coreg 6.25 mg b.i.d. 7. Plavix 75 mg daily. 8. Colace 100 mg q.12h. 9. Lasix 40 mg daily. 10. Lorazepam 1 mg twice daily as needed. 11. Meclizine 25 mg as needed. 12. Megace 40 mg b.i.d. 13. Entresto 1 tablet b.i.d. 14. Tramadol 50 mg at bedtime p.r.n. FOLLOWUP: Follow up with PCP in 1 week. Dictated By: SALTY NELSON/LANDRY Conf#: [id number] DID#: [id number] CC: LEONARDO MARIE MD;*EndCC*
== END 2018-12-07 19:15 | DRG 551 ==
LOC: E/R 17:39 → TEL 20:02
PROVIDERS: ADMIT Internal Medicine; ATTEND Internal Medicine
PROC: 4A033R1 Measurement of Arterial Saturation, Peripheral, Percutaneous Approach (ICD-10-PCS; principal; 2018-12-05)
DX: M51.36 Other intervertebral disc degeneration, lumbar region (principal); N17.0 Acute kidney failure with tubular necrosis; I13.0 Hypertensive heart and chronic kidney disease with heart failure and stage 1 through stage 4 chronic kidney disease, or unspecified chronic kidney disease; E87.2 Acidosis; I50.42 Chronic combined systolic (congestive) and diastolic (congestive) heart failure; M48.061 Spinal stenosis, lumbar region without neurogenic claudication; M46.86 Other specified inflammatory spondylopathies, lumbar region; F32.9 Major depressive disorder, single episode, unspecified; E78.5 Hyperlipidemia, unspecified; I25.10 Atherosclerotic heart disease of native coronary artery without angina pectoris; G89.29 Other chronic pain; I25.5 Ischemic cardiomyopathy; H54.62 Unqualified visual loss, left eye, normal vision right eye; I25.2 Old myocardial infarction; I95.9 Hypotension, unspecified; I48.2 Chronic atrial fibrillation; I48.0 Paroxysmal atrial fibrillation; Z79.01 Long term (current) use of anticoagulants; Z86.73 Personal history of transient ischemic attack (TIA), and cerebral infarction without residual deficits; Z95.5 Presence of coronary angioplasty implant and graft
CPT/HCPCS: 36415; 36600; 71045; 72100; 72128; 72131; 80048; 80053; 81001; 81003; 82570; 82803; 82962; 83605; 83690; 83735; 83880; 84100; 84300; 84484; 85025; 87086; 93005; 96374; 96375; 97110; 97116; 97161; 97530; J0692; J0696; J1940; J2270; J2405; J7030; J7040; J7509

== ENCOUNTER 2019-01-21 12:16 | Inpatient (IN) | payer MEDICARE, OTHER ==
[~2019-01-21] VITALS: Ht 147.3 cm; Wt 54.5 kg
[~2019-01-21 12:16] MED LIST changes: +ACET1TAB40 PO; +ACET325T33 PO; +AMIN30LI5 PO; +AMIO200T4 PO; +AMLO-147 PO; +AMOX1TAB10 PO; +ASCO250T96 PO; +ATEN-51 PO; +ATRO INHALATION; +BISA10SU55 RC; +CALC1TAB94 PO; +CARV12.579 PO; -CEPH-443 PO; +CLOP75TA27 PO; +DOCU-144 PO; +DOCU100C59 PO; +DULO30CA45 PO; +FAMO20TA18 PO; +FER325 PO; +IBUP800T48 PO; +LORA1TAB PO; +MAGN400O19 PO; +MECL-77 PO; +MEGE40TA PO; +METH4TAB PO; +MULT-105 PO; +NA P133E39 RC; +OXYC-438 PO; +POTA10TA7 PO; +QUET25TA PO; +QUET25TA33 PO; +SENN-120 PO; +TRAM50TA2 PO; +ZOLP10TA5 PO; +ZOLP5TAB PO; -ZOLP5TAB7 PO; +[UNRECOGNIZED DRUG - CODE] PO
[2019-01-21] MEDS ORDERED: morphine 4 MG/ML VIAL IV STA ×2 (12:20→15:28)
[2019-01-21] MEDS ORDERED: ONDANSETRON 4 MG INJ IV STA (12:20)
[2019-01-21 12:59] VITALS: Ht 147.3 cm; Wt 54.5 kg
[2019-01-21] MEDS ORDERED: ACETAMINOPHEN 325 MG TAB PO PRN (15:30)
[2019-01-21] MEDS ORDERED: ONDANSETRON 4 MG INJ IV PRN ×2 (15:30→19:00)
[2019-01-21 17:48] VITALS: BP 122/58; PULSE 80; RESP 18
[2019-01-21] MEDS ORDERED: ACETAMINOPHEN/CODEINE #3 TAB PO SCH (18:00)
[2019-01-21] MEDS ORDERED: HYDROCODONE/APAP (5/325) TAB PO SCH (18:30)
[2019-01-21] MEDS ORDERED: KETOROLAC 30 MG INJ IV STA (18:48)
[2019-01-21] MEDS ORDERED: HYDROCODONE/APAP (10/325) TAB PO PRN (19:00)
[2019-01-21] MEDS ORDERED: METHYLPREDNISOLONE (MEDROL) DOSE PACK PO SCH (19:00)
[2019-01-21] MEDS ORDERED: METHYLPREDNISOLONE 4 MG TAB PO SCH (19:00)
[2019-01-21] MEDS ORDERED: NACL 0.9% 3 ML SYG IV SCH (19:00)
[2019-01-21] MEDS ORDERED: MAGNESIUM HYDROXIDE 30ML CUP PO PRN (19:00)
[2019-01-21] MEDS ORDERED: BISACODYL 10 MG SUPP PR PRN (19:00)
[2019-01-21] MEDS: ATORVASTATIN 40 MG TAB PO SCH (20:44)
[2019-01-21] MEDS: DULOXETINE 30 MG CAP DR PO SCH (20:44)
[2019-01-21] MEDS: APIXABAN 5 MG TABLET PO SCH (20:45)
[2019-01-21] MEDS: ATENOLOL 25 MG TAB PO SCH (20:47)
[2019-01-21] MEDS: MAGNESIUM HYDROXIDE 30ML CUP PO SCH (20:47)
[2019-01-21] MEDS ORDERED: FAMOTIDINE 20 MG TAB PO SCH (21:00)
[2019-01-21 21:11] VITALS: BP 114/58; PULSE 79; RESP 18
[2019-01-22] MEDS: ZOLPIDEM 5 MG TAB PO PRN ×2 (01:30→23:36)
[2019-01-22] MEDS: OXYCODONE/ACETAMINOPHEN (5/325) TAB PO PRN ×3 (01:42→23:36)
[2019-01-22 02:00] VITALS: BP 139/42; PULSE 83; RESP 18
[2019-01-22 07:45] VITALS: BP 115/57; PULSE 84; RESP 18
[2019-01-22] MEDS ORDERED: ENOXAPARIN 40 MG/0.4 ML SYG SC SCH (09:00)
[2019-01-22] MEDS: MAGNESIUM HYDROXIDE 30ML CUP PO SCH ×2 (09:14→21:00)
[2019-01-22] MEDS: POTASSIUM CHLORIDE 20 MEQ POWDER FOR ORAL SOLN PO SCH (09:15)
[2019-01-22] MEDS: METHYLPREDNISOLONE 4 MG TAB PO SCH ×3 (09:15→19:28)
[2019-01-22] MEDS: DULOXETINE 30 MG CAP DR PO SCH ×2 (09:15→21:15)
[2019-01-22] MEDS: APIXABAN 5 MG TABLET PO SCH ×2 (09:15→21:14)
[2019-01-22] MEDS: ATENOLOL 25 MG TAB PO SCH ×2 (09:16→21:17)
[2019-01-22] MEDS: FAMOTIDINE 20 MG TAB PO SCH (09:17)
[2019-01-22] MEDS: CLOPIDOGREL 75 MG TAB PO SCH (09:17)
[2019-01-22 15:12] VITALS: BP 133/57; PULSE 93; RESP 17
[2019-01-22 19:40] VITALS: BP 115/59; PULSE 89; RESP 18
[2019-01-22] MEDS ORDERED: METHYLPREDNISOLONE 4 MG TAB PO SCH (21:00)
[2019-01-22] MEDS: ATORVASTATIN 40 MG TAB PO SCH (21:17)
[2019-01-23 02:00] VITALS: BP 114/62; PULSE 72; RESP 18
[2019-01-23] MEDS: morphine 2 MG INJ IV PRN ×4 (03:04→18:30)
[2019-01-23] MEDS: OXYCODONE/ACETAMINOPHEN (5/325) TAB PO PRN ×3 (03:07→20:26)
[2019-01-23] MEDS: METHYLPREDNISOLONE 4 MG TAB PO SCH ×4 (06:16→20:25)
[2019-01-23 08:06] VITALS: BP 131/57; PULSE 74; RESP 16
[2019-01-23] MEDS: CLOPIDOGREL 75 MG TAB PO SCH (08:49)
[2019-01-23] MEDS: APIXABAN 5 MG TABLET PO SCH ×2 (08:49→20:25)
[2019-01-23] MEDS: POTASSIUM CHLORIDE 20 MEQ POWDER FOR ORAL SOLN PO SCH (08:49)
[2019-01-23] MEDS: FAMOTIDINE 20 MG TAB PO SCH (08:49)
[2019-01-23] MEDS: DULOXETINE 30 MG CAP DR PO SCH ×2 (08:49→20:25)
[2019-01-23] MEDS: ATENOLOL 25 MG TAB PO SCH ×2 (08:50→20:25)
[2019-01-23 16:45] VITALS: BP 142/66; PULSE 75; RESP 18
[2019-01-23 19:40] VITALS: BP 140/71; PULSE 75; RESP 18
[2019-01-23] MEDS: ATORVASTATIN 40 MG TAB PO SCH (20:25)
[2019-01-24] MEDS: OXYCODONE/ACETAMINOPHEN (5/325) TAB PO PRN ×4 (00:11→23:19)
[2019-01-24 01:41] VITALS: BP 106/55; PULSE 77; RESP 20
[2019-01-24] MEDS: METHYLPREDNISOLONE 4 MG TAB PO SCH ×3 (06:33→20:15)
[2019-01-24 07:33] VITALS: BP 147/67; PULSE 71; RESP 19
[2019-01-24] MEDS: POTASSIUM CHLORIDE 20 MEQ POWDER FOR ORAL SOLN PO SCH (08:54)
[2019-01-24] MEDS: CLOPIDOGREL 75 MG TAB PO SCH (08:54)
[2019-01-24] MEDS: DULOXETINE 30 MG CAP DR PO SCH ×2 (08:54→20:14)
[2019-01-24] MEDS: ATENOLOL 25 MG TAB PO SCH ×2 (08:55→20:14)
[2019-01-24] MEDS: FAMOTIDINE 20 MG TAB PO SCH (08:55)
[2019-01-24] MEDS: APIXABAN 5 MG TABLET PO SCH ×2 (08:55→20:14)
[2019-01-24 14:35] VITALS: BP 129/63; PULSE 70; RESP 19
[2019-01-24 19:23] VITALS: BP 131/67; PULSE 68; RESP 18
[2019-01-24] MEDS: ATORVASTATIN 40 MG TAB PO SCH (20:14)
[2019-01-24] MEDS: ZOLPIDEM 5 MG TAB PO PRN (21:42)
[2019-01-25 02:00] VITALS: BP 159/74; PULSE 85; RESP 20
[2019-01-25] MEDS: METHYLPREDNISOLONE 4 MG TAB PO SCH ×2 (06:40→20:28)
[2019-01-25 07:29] VITALS: BP 138/71; PULSE 84; RESP 18
[2019-01-25] MEDS: CLOPIDOGREL 75 MG TAB PO SCH (10:02)
[2019-01-25] MEDS: DULOXETINE 30 MG CAP DR PO SCH ×2 (10:02→20:29)
[2019-01-25] MEDS: ATENOLOL 25 MG TAB PO SCH ×2 (10:03→20:29)
[2019-01-25] MEDS: APIXABAN 5 MG TABLET PO SCH ×2 (10:03→20:29)
[2019-01-25] MEDS: FAMOTIDINE 20 MG TAB PO SCH (10:03)
[2019-01-25] MEDS: POTASSIUM CHLORIDE 20 MEQ POWDER FOR ORAL SOLN PO SCH (10:04)
[2019-01-25] MEDS: OXYCODONE/ACETAMINOPHEN (5/325) TAB PO PRN ×2 (11:42→17:07)
[2019-01-25 14:36] VITALS: BP 140/67; PULSE 73; RESP 16
[2019-01-25 19:14] VITALS: BP 122/57; PULSE 70; RESP 16
[2019-01-25] MEDS: ATORVASTATIN 40 MG TAB PO SCH (20:29)
[2019-01-26] MEDS: OXYCODONE/ACETAMINOPHEN (5/325) TAB PO PRN ×3 (02:08→20:53)
[2019-01-26 02:10] VITALS: BP 145/68; PULSE 66; RESP 16
[2019-01-26 07:23] VITALS: BP 168/74; PULSE 64; RESP 16
[2019-01-26] MEDS: POTASSIUM CHLORIDE 20 MEQ POWDER FOR ORAL SOLN PO SCH (09:10)
[2019-01-26] MEDS: SENNA/DOCUSATE NA (8.6MG/50MG) TAB PO SCH (09:11)
[2019-01-26] MEDS: FAMOTIDINE 20 MG TAB PO SCH (09:11)
[2019-01-26] MEDS: ATENOLOL 25 MG TAB PO SCH ×2 (09:11→20:53)
[2019-01-26] MEDS: CLOPIDOGREL 75 MG TAB PO SCH (09:11)
[2019-01-26] MEDS: DULOXETINE 30 MG CAP DR PO SCH ×2 (09:12→20:53)
[2019-01-26] MEDS: METHYLPREDNISOLONE 4 MG TAB PO SCH (09:12)
[2019-01-26] MEDS: APIXABAN 5 MG TABLET PO SCH ×2 (09:12→20:53)
[2019-01-26 14:20] VITALS: BP 129/68; PULSE 66; RESP 16
[2019-01-26 19:20] VITALS: BP 147/67; PULSE 67; RESP 16
[2019-01-26] MEDS: ATORVASTATIN 40 MG TAB PO SCH (20:52)
[2019-01-27 01:26] VITALS: BP 140/63; PULSE 63; RESP 16
[2019-01-27 07:39] VITALS: BP 161/75; PULSE 71; RESP 16
[2019-01-27] MEDS: APIXABAN 5 MG TABLET PO SCH ×2 (08:35→21:24)
[2019-01-27] MEDS: DULOXETINE 30 MG CAP DR PO SCH ×2 (08:36→21:24)
[2019-01-27] MEDS: ATENOLOL 25 MG TAB PO SCH ×2 (08:36→22:07)
[2019-01-27] MEDS: FAMOTIDINE 20 MG TAB PO SCH (08:37)
[2019-01-27] MEDS: OXYCODONE/ACETAMINOPHEN (5/325) TAB PO PRN ×2 (08:38→12:15)
[2019-01-27] MEDS: CLOPIDOGREL 75 MG TAB PO SCH (08:38)
[2019-01-27] MEDS: POTASSIUM CHLORIDE 20 MEQ POWDER FOR ORAL SOLN PO SCH (08:39)
[2019-01-27] MEDS: SENNA/DOCUSATE NA (8.6MG/50MG) TAB PO SCH (08:39)
[2019-01-27 14:50] VITALS: BP 135/75; PULSE 71; RESP 16
[2019-01-27 19:42] VITALS: BP 117/56; PULSE 71; RESP 18
[2019-01-27] MEDS: SACUBITRIL/VALSARTAN (49mg-51mg) TABLET PO SCH (21:00)
[2019-01-27] MEDS: GABAPENTIN 300 MG CAP PO SCH (21:24)
[2019-01-27] MEDS: ATORVASTATIN 40 MG TAB PO SCH (21:24)
[2019-01-28 02:17] VITALS: BP 135/74; PULSE 66; RESP 18
[2019-01-28 07:32] VITALS: BP 157/76; PULSE 74; RESP 16
[2019-01-28] MEDS: SENNA/DOCUSATE NA (8.6MG/50MG) TAB PO SCH (08:59)
[2019-01-28] MEDS: DULOXETINE 30 MG CAP DR PO SCH ×2 (08:59→21:01)
[2019-01-28] MEDS: CLOPIDOGREL 75 MG TAB PO SCH (08:59)
[2019-01-28] MEDS: FAMOTIDINE 20 MG TAB PO SCH (08:59)
[2019-01-28] MEDS: GABAPENTIN 300 MG CAP PO SCH (08:59)
[2019-01-28] MEDS: ATENOLOL 25 MG TAB PO SCH ×2 (09:00→21:02)
[2019-01-28] MEDS: APIXABAN 5 MG TABLET PO SCH ×2 (09:00→21:01)
[2019-01-28] MEDS: POTASSIUM CHLORIDE 20 MEQ POWDER FOR ORAL SOLN PO SCH (09:00)
[2019-01-28] MEDS ORDERED: PIPER-TAZO 3.375 GM IV (PMX) 100 ML IVPB SCH (10:00)
[2019-01-28] MEDS ORDERED: SACUBITRIL/VALSARTAN (49mg-51mg) TABLET PO SCH (11:30)
[2019-01-28] MEDS: AMLODIPINE 2.5 MG TAB PO SCH (12:00)
[2019-01-28] MEDS: OXYCODONE/ACETAMINOPHEN (5/325) TAB PO PRN (12:19)
[2019-01-28] MEDS: SACUBITRIL/VALSARTAN (49mg-51mg) TABLET PO SCH ×2 (12:22→21:53)
[2019-01-28 14:29] VITALS: BP 141/63; PULSE 70; RESP 17
[2019-01-28 19:24] VITALS: BP 123/54; PULSE 80; RESP 18
[2019-01-28] MEDS: AMOXICILLIN/CLAV 875 MG TAB PO SCH (21:00)
[2019-01-28] MEDS: GABAPENTIN 100 MG CAP PO SCH (21:01)
[2019-01-28] MEDS: ATORVASTATIN 40 MG TAB PO SCH (21:01)
[2019-01-28] MEDS: ZOLPIDEM 5 MG TAB PO PRN (21:53)
[2019-01-29] VITALS (7 sets, daily range): BP systolic 76–129; BP diastolic 47–61; PULSE 69–107; RESP 17–20
[2019-01-29] MEDS: OXYCODONE/ACETAMINOPHEN (5/325) TAB PO PRN ×4 (02:11→21:17)
[2019-01-29] MEDS ORDERED: SOD CHLORIDE 0.9% 500 ML IV ONE ×2 (08:00→13:30)
[2019-01-29] MEDS: AMLODIPINE 2.5 MG TAB PO SCH (08:39)
[2019-01-29] MEDS: ATENOLOL 25 MG TAB PO SCH (08:39)
[2019-01-29] MEDS: GABAPENTIN 100 MG CAP PO SCH ×2 (09:12→21:17)
[2019-01-29] MEDS: SACUBITRIL/VALSARTAN (49mg-51mg) TABLET PO SCH (09:12)
[2019-01-29] MEDS: FAMOTIDINE 20 MG TAB PO SCH (09:12)
[2019-01-29] MEDS: CLOPIDOGREL 75 MG TAB PO SCH (09:12)
[2019-01-29] MEDS: DULOXETINE 30 MG CAP DR PO SCH ×2 (09:12→21:16)
[2019-01-29] MEDS: SENNA/DOCUSATE NA (8.6MG/50MG) TAB PO SCH (09:13)
[2019-01-29] MEDS: AMOXICILLIN/CLAV 875 MG TAB PO SCH ×2 (09:13→21:16)
[2019-01-29] MEDS: APIXABAN 5 MG TABLET PO SCH ×2 (09:13→21:17)
[2019-01-29] MEDS: ATORVASTATIN 40 MG TAB PO SCH (21:16)
[2019-01-30 01:55] VITALS: BP 131/60; PULSE 74; RESP 17
[2019-01-30 07:46] VITALS: BP 169/72; PULSE 95; RESP 20
[2019-01-30] MEDS: AMOXICILLIN/CLAV 875 MG TAB PO SCH ×2 (10:30→20:09)
[2019-01-30] MEDS: GABAPENTIN 100 MG CAP PO SCH (10:30)
[2019-01-30] MEDS: CLOPIDOGREL 75 MG TAB PO SCH (10:30)
[2019-01-30] MEDS: SENNA/DOCUSATE NA (8.6MG/50MG) TAB PO SCH (10:30)
[2019-01-30] MEDS: APIXABAN 5 MG TABLET PO SCH ×2 (10:32→20:10)
[2019-01-30] MEDS: FAMOTIDINE 20 MG TAB PO SCH (10:32)
[2019-01-30] MEDS: DULOXETINE 30 MG CAP DR PO SCH ×2 (10:34→20:10)
[2019-01-30] MEDS: OXYCODONE/ACETAMINOPHEN (5/325) TAB PO PRN (10:44)
[2019-01-30 11:00] VITALS: BP 159/68; PULSE 90; RESP 18
[2019-01-30 14:37] VITALS: BP 84/46; PULSE 88; RESP 18
[2019-01-30] MEDS ORDERED: SOD CHLORIDE 0.9% 500 ML IV ONE (15:00)
[2019-01-30 15:23] VITALS: BP 125/61; PULSE 81
[2019-01-30] MEDS ORDERED: HALOPERIDOL 5 MG INJ IM ONE ×2 (16:30→22:30)
[2019-01-30 20:00] VITALS: BP 129/61; PULSE 81; RESP 16
[2019-01-30] MEDS: ATORVASTATIN 40 MG TAB PO SCH (20:10)
[2019-01-30] MEDS: ZOLPIDEM 5 MG TAB PO PRN (20:10)
[2019-01-30] MEDS: ACETAMINOPHEN 325 MG TAB PO PRN (20:11)
[2019-01-31 01:45] VITALS: BP 162/80; PULSE 78; RESP 16
[2019-01-31 08:50] VITALS: BP 171/94; PULSE 109; RESP 18
[2019-01-31] MEDS: APIXABAN 5 MG TABLET PO SCH ×2 (09:20→21:58)
[2019-01-31] MEDS: FAMOTIDINE 20 MG TAB PO SCH (09:20)
[2019-01-31] MEDS: DULOXETINE 30 MG CAP DR PO SCH ×2 (09:20→22:00)
[2019-01-31] MEDS: AMOXICILLIN/CLAV 875 MG TAB PO SCH ×2 (09:20→21:59)
[2019-01-31] MEDS: CLOPIDOGREL 75 MG TAB PO SCH (09:20)
[2019-01-31] MEDS: SENNA/DOCUSATE NA (8.6MG/50MG) TAB PO SCH (09:20)
[2019-01-31] MEDS: ACETAMINOPHEN 325 MG TAB PO PRN ×3 (09:21→21:58)
[2019-01-31 09:25] VITALS: BP 148/68; PULSE 92
[2019-01-31 13:28] VITALS: BP 167/81; PULSE 83; RESP 16
[2019-01-31 14:17] VITALS: BP 150/65; PULSE 87
[2019-01-31 19:20] VITALS: BP 113/63; PULSE 89; RESP 20
[2019-01-31] MEDS: ATORVASTATIN 40 MG TAB PO SCH (22:00)
[2019-02-01 01:40] VITALS: BP 164/85; PULSE 96; RESP 18
[2019-02-01] MEDS: hydrALAzine 20 MG INJ IV PRN (03:41)
[2019-02-01] MEDS: ACETAMINOPHEN 325 MG TAB PO PRN ×2 (04:18→10:11)
[2019-02-01 07:28] VITALS: BP 142/61; PULSE 76; RESP 20
[2019-02-01] MEDS ORDERED: hydrALAzine 20 MG INJ IV ONE (07:30)
[2019-02-01] MEDS: SENNA/DOCUSATE NA (8.6MG/50MG) TAB PO SCH ×2 (09:00→09:59)
[2019-02-01] MEDS: AMOXICILLIN/CLAV 875 MG TAB PO SCH ×2 (09:58→21:21)
[2019-02-01] MEDS: DULOXETINE 30 MG CAP DR PO SCH ×2 (09:58→21:23)
[2019-02-01] MEDS: FAMOTIDINE 20 MG TAB PO SCH (09:58)
[2019-02-01] MEDS: CLOPIDOGREL 75 MG TAB PO SCH (09:58)
[2019-02-01] MEDS: APIXABAN 5 MG TABLET PO SCH ×2 (09:59→21:21)
[2019-02-01] MEDS ORDERED: POTASSIUM CHLORIDE 20 MEQ POWDER FOR ORAL SOLN PO ONE ×2 (10:30→15:00)
[2019-02-01] MEDS: OXYCODONE/ACETAMINOPHEN (5/325) TAB PO PRN ×2 (12:02→22:52)
[2019-02-01 14:35] VITALS: BP 111/63; RESP 20
[2019-02-01] MEDS ORDERED: MAGNESIUM SULFATE 2 GM/50 ML 50 ML IVPB ONE (15:00)
[2019-02-01] MEDS ORDERED: AMIODARONE 150MG/D5W BOLUS 100 ML IV ONE (15:00)
[2019-02-01] MEDS ORDERED: METOPROLOL 5 MG INJ IV ONE (15:00)
[2019-02-01 15:48] VITALS: BP 102/74; PULSE 142
[2019-02-01] MEDS ORDERED: DIGOXIN 500 MCG INJ IV ONE (16:00)
[2019-02-01] MEDS ORDERED: DILTIAZEM 25 MG INJ IV PRN (16:00)
[2019-02-01] MEDS ORDERED: ASPIRIN (EC) 81 MG TAB PO ONE (16:00)
[2019-02-01 17:32] VITALS: BP 123/68
[2019-02-01] MEDS: AMIODARONE 900 MG in DEXTROSE 5% 482 ML IV SCH (17:32)
[2019-02-01 20:00] VITALS: BP 135/70; PULSE 88; RESP 18
[2019-02-01] MEDS: ZOLPIDEM 5 MG TAB PO PRN (21:22)
[2019-02-01] MEDS: ATORVASTATIN 40 MG TAB PO SCH (21:22)
[2019-02-01] MEDS: KETOROLAC 15 MG INJ IV PRN (21:23)
[2019-02-02] VITALS: BP 148/72; PULSE 79; RESP 18
[2019-02-02 04:30] VITALS: BP 130/74; PULSE 86; RESP 18
[2019-02-02] MEDS: AMIODARONE 900 MG in DEXTROSE 5% 482 ML IV SCH ×2 (05:06→17:14)
[2019-02-02 07:27] VITALS: BP 191/70; PULSE 93; RESP 17
[2019-02-02] MEDS: DULOXETINE 30 MG CAP DR PO SCH ×2 (07:51→20:56)
[2019-02-02] MEDS: SENNA/DOCUSATE NA (8.6MG/50MG) TAB PO SCH (07:51)
[2019-02-02] MEDS: FAMOTIDINE 20 MG TAB PO SCH (07:51)
[2019-02-02] MEDS: APIXABAN 5 MG TABLET PO SCH ×2 (07:51→20:56)
[2019-02-02] MEDS: CLOPIDOGREL 75 MG TAB PO SCH (07:51)
[2019-02-02] MEDS: AMOXICILLIN/CLAV 875 MG TAB PO SCH ×2 (07:51→20:56)
[2019-02-02] MEDS: hydrALAzine 20 MG INJ IV PRN (07:53)
[2019-02-02] MEDS: OXYCODONE/ACETAMINOPHEN (5/325) TAB PO PRN ×2 (11:00→18:55)
[2019-02-02 11:26] VITALS: BP 140/65; PULSE 83; RESP 18
[2019-02-02] MEDS: ACETAMINOPHEN 325 MG TAB PO PRN (14:47)
[2019-02-02] MEDS: KETOROLAC 15 MG INJ IV PRN ×2 (14:58→22:34)
[2019-02-02 15:33] VITALS: BP 89/49; PULSE 99; RESP 17
[2019-02-02 19:45] VITALS: BP 108/56; PULSE 100; RESP 20
[2019-02-02] MEDS: ATORVASTATIN 40 MG TAB PO SCH (20:56)
[2019-02-02] MEDS: ZOLPIDEM 5 MG TAB PO PRN (22:39)
[2019-02-03] VITALS: BP 149/72; PULSE 94; RESP 19
[2019-02-03 04:00] VITALS: BP 134/64; PULSE 96; RESP 20
[2019-02-03 07:19] VITALS: BP 151/67; PULSE 101; RESP 17
[2019-02-03] MEDS: CLOPIDOGREL 75 MG TAB PO SCH (08:12)
[2019-02-03] MEDS: AMOXICILLIN/CLAV 875 MG TAB PO SCH ×2 (08:12→20:39)
[2019-02-03] MEDS: APIXABAN 5 MG TABLET PO SCH ×2 (08:12→20:40)
[2019-02-03] MEDS: DULOXETINE 30 MG CAP DR PO SCH ×2 (08:12→20:38)
[2019-02-03] MEDS: SENNA/DOCUSATE NA (8.6MG/50MG) TAB PO SCH (08:12)
[2019-02-03] MEDS: FAMOTIDINE 20 MG TAB PO SCH (08:12)
[2019-02-03] MEDS: OXYCODONE/ACETAMINOPHEN (5/325) TAB PO PRN (08:16)
[2019-02-03] MEDS: AMIODARONE 200 MG TAB PO SCH ×2 (10:16→20:39)
[2019-02-03] MEDS: KETOROLAC 15 MG INJ IV PRN ×2 (11:07→20:42)
[2019-02-03 11:26] VITALS: BP 123/60; PULSE 99; RESP 17
[2019-02-03] MEDS: FERROUS SULFATE (EC) 325 MG TAB PO SCH (14:38)
[2019-02-03 15:22] VITALS: BP 136/70; PULSE 97; RESP 18
[2019-02-03 20:00] VITALS: BP 133/63; PULSE 97; RESP 18
[2019-02-03] MEDS: ATORVASTATIN 40 MG TAB PO SCH (20:39)
[2019-02-03] MEDS: ZOLPIDEM 5 MG TAB PO PRN (20:40)
[2019-02-04] VITALS: BP 132/77; PULSE 91; RESP 18
[2019-02-04 04:00] VITALS: BP 144/74; PULSE 90; RESP 17
[2019-02-04] MEDS ORDERED: LORAZEPAM 2 MG INJ IV ONE (05:00)
[2019-02-04] MEDS ORDERED: HALOPERIDOL 5 MG INJ IV ONE (05:00)
[2019-02-04] MEDS ORDERED: DIPHENHYDRAMINE 50 MG INJ IV ONE (07:30)
[2019-02-04 07:57] VITALS: BP 157/83; PULSE 114; RESP 20
[2019-02-04] MEDS: DULOXETINE 30 MG CAP DR PO SCH (08:40)
[2019-02-04] MEDS: AMIODARONE 200 MG TAB PO SCH (08:46)
[2019-02-04] MEDS: FAMOTIDINE 20 MG TAB PO SCH (08:46)
[2019-02-04] MEDS: APIXABAN 5 MG TABLET PO SCH (08:46)
[2019-02-04] MEDS: CLOPIDOGREL 75 MG TAB PO SCH (08:46)
[2019-02-04] MEDS: AMOXICILLIN/CLAV 875 MG TAB PO SCH (08:48)
[2019-02-04] MEDS: SENNA/DOCUSATE NA (8.6MG/50MG) TAB PO SCH (08:48)
[2019-02-04] MEDS: FERROUS SULFATE (EC) 325 MG TAB PO SCH (08:48)
[2019-02-04] MEDS ORDERED: traMADol 50 MG TAB PO PRN (10:30)
[2019-02-04 11:23] VITALS: BP 162/77; PULSE 101; RESP 20
[2019-02-04 15:53] VITALS: BP 130/58; PULSE 95; RESP 18
[2019-02-04] MEDS ORDERED: QUETIAPINE 25 MG TAB PO SCH (21:00)
== END 2019-02-04 18:00 | DRG 552 ==
LOC: E/R 12:16 → 2NE 15:29 → OBSVTOIN 01-22 23:23 → 2NE 01-23 07:07 → 6WM 02-01 15:05
PROVIDERS: ADMIT Internal Medicine; ATTEND Internal Medicine
DX: M48.00 Spinal stenosis, site unspecified (principal); K12.2 Cellulitis and abscess of mouth; I13.0 Hypertensive heart and chronic kidney disease with heart failure and stage 1 through stage 4 chronic kidney disease, or unspecified chronic kidney disease; I50.42 Chronic combined systolic (congestive) and diastolic (congestive) heart failure; F33.2 Major depressive disorder, recurrent severe without psychotic features; G93.40 Encephalopathy, unspecified; S39.012A Strain of muscle, fascia and tendon of lower back, initial encounter; N18.9 Chronic kidney disease, unspecified; I25.10 Atherosclerotic heart disease of native coronary artery without angina pectoris; G89.29 Other chronic pain; E78.5 Hyperlipidemia, unspecified; K04.7 Periapical abscess without sinus; M47.9 Spondylosis, unspecified; K80.80 Other cholelithiasis without obstruction; I25.2 Old myocardial infarction; I48.0 Paroxysmal atrial fibrillation; K59.00 Constipation, unspecified; R62.7 Adult failure to thrive; D64.9 Anemia, unspecified; K02.9 Dental caries, unspecified; F03.90 Unspecified dementia, unspecified severity, without behavioral disturbance, psychotic disturbance, mood disturbance, and anxiety; I95.9 Hypotension, unspecified; Z95.5 Presence of coronary angioplasty implant and graft; X58.XXXA Exposure to other specified factors, initial encounter; Z79.02 Long term (current) use of antithrombotics/antiplatelets
CPT/HCPCS: 70486; 71045; 72100; 73500; 73562; 74176; 76856; 80048; 80053; 80061; 80069; 80162; 81001; 82550; 82553; 82728; 82962; 83036; 83540; 83690; 83735; 83880; 84100; 84145; 84439; 84443; 84484; 85025; 85610; 85651; 85730; 86140; 86850; 86900; 86901; 87081; 93005; 93306; 96374; 96375; 97110; 97116; 97161; 97530; 99217; G0378; J0282; J0360; J1200; J1630; J1885; J2060; J2270; J2405; J2543; J3475; J7040; J7060; J7509